=== PATIENT | female | born 1950 ===

== ENCOUNTER 2020-05-28 11:09 | Outpatient (REF) | payer MEDICARE, SELFPAY ==
[2020-05-28 12:00] LABS: MANUAL DIFF FLAG NO
[2020-05-28 12:11] LABS: Basophils Absolute Auto 0.1 X10*3/uL (0.0-0.2); Basophils Percent Auto 1.2 % (0-2); Eosinophils Absolute Auto 0.2 X10*3/uL (0.0-0.4); Eosinophils Percent Auto 4.1 % (0-4); Hematocrit 39.6 % (37-47); Hemoglobin 13.2 g/dl (12.0-16.0); Imm Gran Abs Auto 0.01 X10*3/uL (0.00-0.03); Imm Gran Pct Auto 0.2 % (0.0-0.4); Lymphocytes Absolute Auto 2.1 X10*3/uL (1.2-4.9); Lymphocytes Percent Auto 42.9 % (20-40); Mean Corpuscular HGB Conc 33.3 g/dl (31.0-35.0); Mean Corpuscular Hemoglobin 29.9 pg (27.0-33.0); Mean Corpuscular Volume 89.6 fL (80-98); Mean Platelet Volume 12.4 fL (9.4-12.3); Monocytes Absolute Auto 0.3 X10*3/uL (0.1-1.2); Monocytes Percent Auto 5.9 % (2-11); Neutrophils Absolute Auto 2.2 X10*3/uL (2.0-8.3); Neutrophils Percent Auto 45.7 % (45-73); Platelet Count 206 X10*3/uL (160-400); Red Blood Count 4.42 X10*6/uL (4.20-5.50); Red Cell Distribution Width 13.1 % (11.0-16.0); White Blood Count 4.9 X10*3/uL (4.8-10.8)
[2020-05-28 12:41] LABS: Alanine Aminotransferase 34 U/L (0-31); Albumin Level 4.3 g/dL (3.5-5.0); Alkaline Phosphatase 54 U/L (39-117); Anion Gap 9 (12-20); Aspartate Amino Transferase 26 U/L (5-31); Bilirubin Total 0.7 mg/dL (0.0-1.0); Blood Urea Nitrogen 16 mg/dL (9-16); Calcium 9.7 mg/dL (8.4-10.2); Carbon Dioxide 31 mmol/L (22-29); Chloride 103 mmol/L (96-108); Cholesterol 223 mg/dL; Estimated Glomerular Filt Rate 59; Glucose Fasting 85 mg/dL (60-99); HDL Cholesterol 55 mg/dL; LDL Cholesterol Calculated 144 mg/dl; Potassium 3.8 mmol/l (3.3-5.1); Sodium 139 mmol/L (135-145); Triglycerides 122 mg/dL
[2020-05-28 12:47] LABS: TSH reflex Free T4 1.04 mIU/mL (0.32-4.0)
[2020-05-28 12:48] LABS: Glucose Urine UA NEG (NEG); Leukocyte Esterase Urine NEG (NEG); Nitrite Urine NEG (NEG); PH 5.5 (5.0-8.0); Specific Gravity - Urine >= 1.030 (1.005-1.025); Urine Blood TRACE (NEG); Urine Ketones NEG (NEG); Urine Protein NEG (NEG-TRACE)
[2020-05-28 12:53] LABS: Appearance Urine CLEAR; Color Urine YELLOW
[2020-05-28 13:11] LABS: Mucus Urine 1+ /LPF; RBC Urine 0-2 /HPF (0); Squamous Epithelial Cell Urine 1+ /LPF; WBC Urine 0 /HPF (0-4)
== END 2020-05-28 11:10 | disposition home or self-care (01) ==
LOC: HO.LAB 11:09
PROVIDERS: PCP Internal Medicine; Visit Provider Internal Medicine
DX: I10 Essential (primary) hypertension (principal); E78.5 Hyperlipidemia, unspecified; R74.8 Abnormal levels of other serum enzymes; J30.9 Allergic rhinitis, unspecified; E66.3 Overweight
CPT/HCPCS: 36415; 80053; 80061; 81001; 84443; 85025

== ENCOUNTER 2020-07-18 | Outpatient (REF) | payer MEDICARE, SELFPAY ==
--- NOTE | 2020-07-18 09:51 | EMG_ITS ---
Bilateral median and ulnar motor and sensory studies were performed. Bilateral radial sensory studies were performed and paraspinal muscles were tested. IMPRESSION: 1. Ffft-rp-qsdxfemq bilateral median neuropathy across carpal tunnel. 2. Mild bilateral ulnar neuropathy across cubital tunnel. MD DARIN Licona/KATIE / [id number]
== END 2020-07-18 00:01 ==
LOC: HO.NEURO
PROVIDERS: PCP Internal Medicine; Visit Provider Internal Medicine
DX: M79.641 Pain in right hand (principal); M79.642 Pain in left hand; R20.2 Paresthesia of skin
CPT/HCPCS: 95860; 95886

== ENCOUNTER 2020-08-22 14:13 | Outpatient (REF) | payer MEDICARE, SELFPAY ==
--- NOTE | 2020-08-22 14:18 | MM_ITS ---
EXAMINATION: MM SCREENING DIGITAL BREAST TOMOSYNTHESIS, BILATERAL CLINICAL INFORMATION: Screening. Asymptomatic. The lifetime risk of breast cancer based on the Tyrer-Cuzick Model is 6%. COMPARISON: Mammography: 08/17/2019, 07/26/2018, 08/03/2017, 08/06/2016 TECHNIQUE: Digital breast tomosynthesis is performed in both the craniocaudal and mediolateral oblique views along with computer-aided detection (CAD). Synthesized 2D images are generated from the tomosynthesis. FINDINGS: There are scattered areas of fibroglandular density (ACR BI-RADS breast composition Category b). There are no significant masses, abnormal calcifications, or other abnormalities. Parenchymal pattern is similar to prior exams. No developing density. There are scattered bilateral calcifications again seen similar in number and distribution to prior studies. MM/MM tomosynthesis screening BI IMPRESSION: No significant changes from prior exams. ASSESSMENT: BI-RADS 2: Benign RECOMMENDATION: Routine annual mammography screening. This patient's information was entered into a reminder system with a target due date for their next mammogram.
== END 2020-08-22 14:14 | disposition home or self-care (01) ==
LOC: HO.MAMMO 14:13
PROVIDERS: Visit Provider Internal Medicine
DX: Z12.31 Encounter for screening mammogram for malignant neoplasm of breast (principal)
CPT/HCPCS: 77063; 77067

== ENCOUNTER 2020-09-30 11:22 | Outpatient (REF) | payer MEDICARE, SELFPAY ==
[2020-09-30 12:17] LABS: MANUAL DIFF FLAG NO
[2020-09-30 12:19] LABS: Basophils Percent Auto 0.6 % (0-2); Eosinophils Absolute Auto 0.1 X10*3/uL (0.0-0.4); Eosinophils Percent Auto 1.6 % (0-4); Hematocrit 39.5 % (37-47); Hemoglobin 13.3 g/dl (12.0-16.0); Imm Gran Abs Auto 0.01 X10*3/uL (0.00-0.03); Imm Gran Pct Auto 0.2 % (0.0-0.4); Lymphocytes Percent Auto 41.1 % (20-40); Mean Corpuscular HGB Conc 33.7 g/dl (31.0-35.0); Mean Corpuscular Hemoglobin 29.9 pg (27.0-33.0); Mean Corpuscular Volume 88.8 fL (80-98); Mean Platelet Volume 12.3 fL (9.4-12.3); Monocytes Absolute Auto 0.2 X10*3/uL (0.1-1.2); Monocytes Percent Auto 4.9 % (2-11); Neutrophils Absolute Auto 2.5 X10*3/uL (2.0-8.3); Neutrophils Percent Auto 51.6 % (45-73); Platelet Count 194 X10*3/uL (160-400); Red Blood Count 4.45 X10*6/uL (4.20-5.50); Red Cell Distribution Width 13.3 % (11.0-16.0); White Blood Count 4.9 X10*3/uL (4.8-10.8)
[2020-09-30 12:48] LABS: Alanine Aminotransferase 29 U/L (0-31); Albumin Level 4.2 g/dL (3.5-5.0); Alkaline Phosphatase 55 U/L (39-117); Anion Gap 11 (12-20); Aspartate Amino Transferase 22 U/L (5-31); Blood Urea Nitrogen 19 mg/dL (9-16); Calcium 9.8 mg/dL (8.4-10.2); Carbon Dioxide 32 mmol/L (22-29); Chloride 102 mmol/L (96-108); Cholesterol 252 mg/dL; Estimated Glomerular Filt Rate 58; Glucose Fasting 75 mg/dL (60-99); HDL Cholesterol 59 mg/dL; LDL Cholesterol Calculated 173 mg/dl; Potassium 3.7 mmol/L (3.3-5.1); Sodium 141 mmol/L (135-145); Triglycerides 100 mg/dL
[2020-09-30 13:12] LABS: TSH reflex Free T4 0.95 uIU/mL (0.32-4.0)
[2020-09-30 13:21] LABS: Folate 13.2 ng/mL (> or = 4.0); Vitamin B12 659 pg/mL (200-900)
== END 2020-09-30 11:23 | disposition home or self-care (01) ==
LOC: HO.LAB 11:22
PROVIDERS: PCP Internal Medicine; Visit Provider Internal Medicine
DX: I10 Essential (primary) hypertension (principal); R20.2 Paresthesia of skin; E78.00 Pure hypercholesterolemia, unspecified; E66.3 Overweight
CPT/HCPCS: 36415; 80053; 80061; 82607; 82746; 84443; 85025

== ENCOUNTER 2020-11-05 12:27 | Outpatient (REF) | payer MEDICARE, SELFPAY ==
[2020-11-05 13:56] LABS: MANUAL DIFF FLAG NO
[2020-11-05 14:08] LABS: Basophils Percent Auto 0.7 % (0-2); Eosinophils Absolute Auto 0.1 X10*3/uL (0.0-0.4); Eosinophils Percent Auto 2.6 % (0-4); Hematocrit 38.8 % (37-47); Lymphocytes Absolute Auto 2.3 X10*3/uL (1.2-4.9); Lymphocytes Percent Auto 42.1 % (20-40); Mean Corpuscular HGB Conc 33.5 g/dl (31.0-35.0); Mean Corpuscular Volume 89.4 fL (80-98); Mean Platelet Volume 12.7 fL (9.4-12.3); Monocytes Absolute Auto 0.3 X10*3/uL (0.1-1.2); Monocytes Percent Auto 5.9 % (2-11); Neutrophils Absolute Auto 2.7 X10*3/uL (2.0-8.3); Neutrophils Percent Auto 48.7 % (45-73); Platelet Count 197 X10*3/uL (160-400); Red Blood Count 4.34 X10*6/uL (4.20-5.50); Red Cell Distribution Width 13.1 % (11.0-16.0); White Blood Count 5.4 X10*3/uL (4.8-10.8)
[2020-11-05 14:54] LABS: Alanine Aminotransferase 24 U/L (0-31); Albumin Level 4.3 g/dL (3.5-5.0); Alkaline Phosphatase 56 U/L (39-117); Anion Gap 14 (12-20); Aspartate Amino Transferase 22 U/L (5-31); Bilirubin Total 0.8 mg/dL (0.0-1.0); Blood Urea Nitrogen 17 mg/dL (9-16); Calcium 9.7 mg/dL (8.4-10.2); Carbon Dioxide 30 mmol/L (22-29); Chloride 100 mmol/L (96-108); Estimated Glomerular Filt Rate > 60; Glucose Random 85 mg/dL (60-115); Lipase 15 U/L (8-78); Potassium 3.6 mmol/L (3.3-5.1); Sodium 140 mmol/L (135-145); Total Protein 8.1 g/dL (6.5-8.0)
[2020-11-05 14:58] LABS: Amylase 101 U/L (28-100)
== END 2020-11-05 12:28 | disposition home or self-care (01) ==
LOC: HO.HMGCLDS 12:27
PROVIDERS: PCP Internal Medicine; Visit Provider Nurse Practitioner Family
DX: R10.9 Unspecified abdominal pain (principal)
CPT/HCPCS: 36415; 80053; 82150; 83690; 85025

== ENCOUNTER 2020-11-30 10:59 | Emergency (ER) | payer MEDICARE, SELFPAY ==
--- NOTE | ~2020-11-30 | XR_ITS ---
EXAMINATION: XR CHEST CLINICAL INFORMATION: Upper abdominal pain. COMPARISON: Chest radiograph dated 08/14/2009. TECHNIQUE: 2 views of the chest were obtained. FINDINGS: The lungs are clear. The cardiomediastinal silhouette is normal in size. There is no pleural effusion or pneumothorax. No acute osseous abnormality. XR/XR chest 2V IMPRESSION: No acute cardiopulmonary findings.
--- NOTE | ~2020-11-30 | US_ITS ---
EXAMINATION: US ABDOMEN COMPLETE CLINICAL INFORMATION: Upper abdominal pain. COMPARISON: CT abdomen/pelvis dated 07/19/2018. TECHNIQUE: Real-time imaging of the abdominal viscera. FINDINGS: PANCREAS: The visualized pancreatic head and body are unremarkable. The tail is obscured by bowel gas. ABDOMINAL AORTA: The proximal, mid, and distal segments are normal in caliber. INFERIOR VENA CAVA: Visualized portions are normal. LIVER: Redemonstration of right hepatic cysts measuring 1.3 and 1.8 cm, similar when compared to the CT from 2018. No new hepatic parenchymal lesion. The liver is normal in size. The liver contour is normal. Parenchymal echogenicity is normal. There is no intrahepatic biliary duct dilatation seen. GALLBLADDER: Normal. The gallbladder is physiologically distended without evidence of stones, sludge, polyps, wall thickening or pericholecystic fluid. COMMON BILE DUCT: Normal in caliber measuring 0.4 cm in diameter. RIGHT KIDNEY: Multiple right-sided renal cysts, the largest of which measure up to 1.3 cm. There may be a small peripheral calcification versus focal artifact. No hydronephrosis or nephrolithiasis. The kidney measures 9.5 cm in maximum dimension. LEFT KIDNEY: Normal. No hydronephrosis. No renal calculi or focal parenchymal lesions. The kidney measures 10.2 cm in maximum dimension. SPLEEN: Normal. The spleen measures 8.7 cm in maximum dimension. FREE FLUID: None. US/US abdomen complete IMPRESSION: 1. No cholelithiasis, gallbladder wall thickening, or pericholecystic free fluid to suggest acute cholecystitis. 2. Stable hepatic cysts. No new hepatic parenchymal lesion or biliary ductal dilatation. 3. Redemonstration of multiple right-sided renal cysts. No routine followup imaging recommended. No hydronephrosis or nephrolithiasis.
--- NOTE | ~2020-11-30 | CT_ITS ---
EXAMINATION: CT ABDOMEN AND PELVIS WITH CONTRAST CLINICAL INFORMATION: Abdominal pain radiating to the mid back COMPARISON: 07/19/2018 TECHNIQUE: Multidetector volumetric images were obtained from the superior aspect of the liver through the pubic symphysis following administration 85 mL of Omnipaque 350 intravenous contrast. Sagittal and coronal reformatted images were obtained on the technologist's workstation. Oral contrast: No This CT examination was performed using dose optimization techniques as appropriate, variously including the following: *Automated exposure control *Adjustment of mA and/or kV according to patient size (this includes techniques or standardized protocols for targeted exams where dose is matched to indication/reason for exam; i.e. extremities or head) *Use of iterative reconstruction technique DLP: 560 mGy-cm FINDINGS: LUNG BASES: The visualized lung bases are unremarkable. LIVER, GALLBLADDER, AND BILIARY TREE: There are well-circumscribed water density simple cysts in the liver, the largest 1.8 cm in segment 7. No imaging follow-up recommended. No suspicious or concerning liver lesions seen. The gallbladder is unremarkable with no evidence of radiopaque gallstones, gallbladder wall thickening, or obvious pericholecystic inflammatory changes. PANCREAS: The pancreatic duct is tortuous and prominent, up to 3 mm in diameter through the head of the pancreas. It is increased in conspicuity from the prior CT scan. There is a 3 mm cyst inferiorly in the pancreatic head image 31/81. No solid pancreatic mass or peripancreatic inflammatory changes. SPLEEN: Unremarkable. ADRENAL GLANDS: Unremarkable. KIDNEYS AND URETERS: Symmetric bilateral renal enhancement. There are well-circumscribed water density bilateral renal simple cysts; no imaging follow-up recommended. No solid or suspicious renal mass. No hydronephrosis or calculi. BLADDER: Unremarkable. GASTROINTESTINAL TRACT: Stomach and small bowel are nondilated. Normal appendix. There is colonic diverticulosis but no evidence of colitis or diverticulitis. ABDOMINAL WALL: Tiny fat-containing umbilical hernia. LYMPH NODES: Normal. VASCULAR: Unremarkable. PELVIC VISCERA: Normal CT appearance of the ovaries. There are several ill-defined low density lesions in the body and fundus of the uterus, likely leiomyomata. OSSEOUS STRUCTURES: Multilevel degenerative changes of the lumbar spine degenerative disc disease greatest at L5-S1. No acute or suspicious osseous abnormality. CT/CT abdomen pelvis w con IMPRESSION: No acute CT findings to explain abdominal pain. There is an abnormal appearance to the pancreatic duct, which is tortuous and prominent. There is a 3 mm cyst inferiorly in the pancreatic head. Follow-up recommendation for a pancreatic cyst this size in a patient 65-79 years presentation is follow-up imaging in 2 years, preferably with MRI.
[2020-11-30 11:13] VITALS: BP 159/70; PULSE 48; RESP 16; TEMP 36.7; O2SAT 99; BMI 28.7
[2020-11-30 12:02] LABS: MANUAL DIFF FLAG NO
[2020-11-30 12:03] LABS: Basophils Percent Auto 0.8 % (0-2); Eosinophils Absolute Auto 0.1 X10*3/uL (0.0-0.4); Eosinophils Percent Auto 2.5 % (0-4); Hematocrit 39.1 % (37-47); Hemoglobin 13.2 g/dl (12.0-16.0); Imm Gran Abs Auto 0.01 X10*3/uL (0.00-0.03); Imm Gran Pct Auto 0.2 % (0.0-0.4); Lymphocytes Absolute Auto 1.9 X10*3/uL (1.2-4.9); Lymphocytes Percent Auto 39.2 % (20-40); Mean Corpuscular HGB Conc 33.8 g/dl (31.0-35.0); Mean Corpuscular Hemoglobin 29.9 pg (27.0-33.0); Mean Corpuscular Volume 88.7 fL (80-98); Mean Platelet Volume 11.7 fL (9.4-12.3); Monocytes Absolute Auto 0.3 X10*3/uL (0.1-1.2); Monocytes Percent Auto 5.8 % (2-11); Neutrophils Absolute Auto 2.5 X10*3/uL (2.0-8.3); Neutrophils Percent Auto 51.5 % (45-73); Platelet Count 186 X10*3/uL (160-400); Red Blood Count 4.41 X10*6/uL (4.20-5.50); Red Cell Distribution Width 13.1 % (11.0-16.0); White Blood Count 4.8 X10*3/uL (4.8-10.8)
[2020-11-30 12:17] LABS: Glucose Urine UA NEG (NEG); Leukocyte Esterase Urine NEG (NEG); Nitrite Urine NEG (NEG); PH 5.5 (5.0-8.0); Specific Gravity - Urine >= 1.030 (1.005-1.025); Urine Blood TRACE (NEG); Urine Ketones NEG (NEG); Urine Protein NEG (NEG-TRACE)
[2020-11-30 12:23] LABS: Appearance Urine CLEAR; Color Urine YELLOW
[2020-11-30 12:32] LABS: Anion Gap 12 (12-20); Blood Urea Nitrogen 15 mg/dL (9-16); Calcium 9.8 mg/dL (8.4-10.2); Carbon Dioxide 30 mmol/L (22-29); Chloride 103 mmol/L (96-108); Creatinine Clr Calc Pharmacy 58.1; Estimated Glomerular Filt Rate > 60; Glucose Random 85 mg/dL (60-115); Potassium 3.8 mmol/L (3.3-5.1); Sodium 141 mmol/L (135-145)
[2020-11-30 12:47] LABS: RBC Urine 0 /HPF (0); Squamous Epithelial Cell Urine 1+ /LPF
--- NOTE | 2020-11-30 13:43 | ECG_ITS ---
Test Reason : ABDOMINAL PAIN Blood Pressure : / mmHG Vent. Rate : 044 BPM Atrial Rate : 044 BPM P-R Int : 184 ms QRS Dur : 086 ms QT Int : 454 ms P-R-T Axes : 043 028 036 degrees QTc Int : 388 ms Marked sinus bradycardia Abnormal ECG When compared with ECG of 22-AUG-2016 08:47, No significant change was found Referred By: Mariely Garcia Electronically Signed By:Flo Mercado
--- NOTE | 2020-11-30 14:15 | ED.ABDPAIN ---
HPI - Abdominal Pain General Chief Complaint: Abdominal Pain Stated Complaint: ABD AND BACK PAIN Time Seen by Provider: 11/30/20 11:57 Source: patient Mode of arrival: ambulatory Limitations: no limitations History of Present Illness HPI narrative: 70-year-old female with a past medical history of hypertension, migraine headaches and GERD presenting to the ED with complaints of intermittent abdominal pain in the epigastric area since June worse within the past 4 days where it is now radiating to her mid back mainly right-sided worse after she eats. Denies any fevers, chills, nausea/vomiting, changes in vision, chest pain, shortness of breath, dyspnea on exertion, orthopnea, palpitations, diarrhea, hematuria, diarrhea, constipation, black or bloody stools, hematuria, dysuria or any other symptoms complaints or concerns at this time. Reports she is not on any blood thinners. Denies recent travel or sick contacts. MD elicited complaint: abdominal pain Onset (ago): day(s) (Intermittently since June worse in the past for 4 days ) Pain Consistency: intermittent Location: epigastric Severity: moderate Quality: aching Radiation: back Exacerbating factors: eating Relieving factors: nothing Associated symptoms: denies other symptoms Related Data Previous Rx's Medication Instructions Recorded syhbimcctt-mhunmgl-[id number] 50 2 cap PO Q4-6H PRN 30 Days #180 cap 07/25/20 mg-325 mg-40 mg capsule atenolol 50 mg-chlorthalidone 25 0.5 tab PO DAILY #45 tab 08/19/20 mg tablet polyethylene glycol 3350 17 17 g PO BID #238 g 11/05/20 gram/dose oral powder Allergies Allergy/AdvReac Type Severity Reaction Status Date / Time No Known Allergies Allergy Verified 11/30/20 10:07 [No Known Allergies*] Review of Systems Review of Systems Constitutional : No Fever, No Chills, No Night Sweats, No Fatigue, No Malaise Cardiovascular : No Chest Pain, No SOB Respiratory : No Cough, No Sputum, No Wheezing, No Dyspnea Gastrointestinal : +abdominal pain, No Nausea, No Vomiting, No Diarrhea, No Hematochezia, No Melena Genitourinary : No irregular bleeding, No Dysuria, No Urinary Frequency, No Hematuria,No Urinary Incontinence, No Urgency, No Flank Pain Musculoskeletal : No joint pain, No Myalgias, No Joint Swelling Skin : No Skin Lesions, No rash Neuro : No Weakness, No Numbness, No Paresthesias, No Loss of Consciousness, No Dizziness, No Headache Heme/Lymph: No Lymphadenopathy Endocrine : No Temperature Intolerance Yes all other systems are reviewed and are negative Physical Exam Vital Signs: Vital Signs: Last Vital Signs Temp 98.1 F 11/30/20 11:13 Pulse 47 L 11/30/20 15:36 Resp 16 11/30/20 15:36 BP 155/75 H 11/30/20 15:36 Pulse Ox 96 11/30/20 15:36 Body Mass Index 28.7 vital signs have been reviewed as normal and appeared to be correct. Blood pressure hypertensive at 159/70. Heart rate bradycardic at 48. Respiration rate normal. Temperature normal. Oxygen saturation normal. Appearance: Alert. Oriented X3. No acute distress. Head: Normal external exam. Normocephalic. Eyes: PERRLA. EOMI. Conjunctiva and sclera normal. Eyelids normal. ENT: Pharynx normal. Uvula midline. Moist mucous membranes. No trismus noted. No drooling noted. No muffled voice noted. Neck: Normal inspection. Neck supple. FROM. No adenopathy. No meningeal signs. CVS: Normal heart rate and rhythm. Heart sound normal. No murmurs noted. Pulses normal throughout. Respiratory: No respiratory distress. Painless inspiration. Breath sounds normal. No wheezes/rales/rhonchi noted. Chest nontender. No accessory muscle usage noted or decreased air movement noted. Abdomen: Soft and moderate tenderness to the epigastric/upper abdomen with guarding. Positive Calderon sign. Nondistended. No rigidity. Bowel sounds normal in all 4 quadrants. No distention noted. No organomegaly noted. No visible injury noted. No rebound tenderness. Negative Rovsing sign. Negative obturator's sign. Negative psoas sign. Back: No CVA tenderness. Full range of motion noted. Skin: Skin warm and dry. Normal skin color. Normal skin turgor. No rashes/lesions/lacerations noted. Extremities: Extremities exhibit normal range of motion. Extremities nontender. Neuro: Oriented X 3. No motor deficit. No sensory deficit. Reflexes normal. Normal steady gait. Course Course Course Narrative: 16pm - total bilirubin 1.1 - otherwise all other labs are within normal limits - troponin within normal limits. - abdominal ultrasound revealed chronic changes of the liver/kidneys with cysts otherwise no acute processes noted - UA within normal limits no evidence of UTI. - EKG was sinus bradycardia similar compared to prior EKG. - therefore will obtain a CT scan of abdomen and pelvis with IV contrast to evaluate for any other acute processes. MDM - Abdominal Pain MDM Narrative Medical decision making narrative: 13:45 - 70-year-old female presenting to the ED with complaints of intermittent abdominal pain in the epigastric abdominal area worse after eating since June although worse within the past 4 days now radiating to her mid back. - on exam patient is alert and oriented x3. Not in any acute distress. No focal neuro deficits are noted. Mildly hypertensive at 159/70. Bradycardic at 48 otherwise all other vitals are within normal limits. Lungs clear to auscultation. CV RRR. Abdomen is soft although patient has moderate tenderness to the epigastric/upper abdomen with a positive Calderon sign. No lower extremity edema or calf tenderness noted. - Concern for cholecystitis vs pancreatitis Plan: Labs, EKG, ultrasound of abdomen. Provide a L of IV fluids with 5 mg of oxycodone and re-evaluate. Medical Records Attestation: I reviewed the patient's medical records. Lab Data Attestation: I reviewed the patient's lab results. Result diagrams: 11/30/20 11:58 11/30/20 11:58 Labs: Lab Results 11/30/20 11/30/20 11/30/20 Range/Units 11:58 11:58 11:58 WBC 4.8 (4.8-10.8) X10*3/uL RBC 4.41 (4.20-5.50) X10*6/uL Hgb 13.2 (12.0-16.0) g/dl Hct 39.1 (37-47) % MCV 88.7 (80-98) fL MCH 29.9 (27.0-33.0) pg MCHC 33.8 (31.0-35.0) g/dl RDW 13.1 (11.0-16.0) % Plt Count 186 (160-400) X10*3/uL MPV 11.7 (9.4-12.3) fL Immature Gran % (Auto) 0.2 (0.0-0.4) % Neut % (Auto) 51.5 (45-73) % Lymph % (Auto) 39.2 (20-40) % [place] % (Auto) 5.8 (2-11) % Eos % (Auto) 2.5 (0-4) % Baso % (Auto) 0.8 (0-2) % Lymph # (Auto) 1.9 (1.2-4.9) X10*3/uL [place] # (Auto) 0.3 (0.1-1.2) X10*3/uL Eos # (Auto) 0.1 (0.0-0.4) X10*3/uL Baso # (Auto) 0.0 (0.0-0.2) X10*3/uL Abs Immat Gran (auto) 0.01 (0.00-0.03) X10*3/uL Absolute Neuts (auto) 2.5 (2.0-8.3) X10*3/uL Absolute Nucleated RBC 0.000 (0.0-0.012) X10*3/uL Nucleated RBC % (auto) 0.0 (0.0-0.2) /100WBC Hold Blue Top SEE NOTE Sodium 141 (135-145) mmol/L Potassium 3.8 (3.3-5.1) mmol/L Chloride 103 (96-108) mmol/L Carbon Dioxide 30 H (22-29) mmol/L Anion Gap 12 (12-20) BUN 15 (9-16) mg/dL Creatinine 0.89 (0.5-1.4) mg/dL Estim Creat Clear Calc 58.1 Estimated GFR > 60 Random Glucose 85 (60-115) mg/dL Calcium 9.8 (8.4-10.2) mg/dL Magnesium 1.9 (1.6-2.6) mg/dL Total Bilirubin 1.1 H (0.0-1.0) mg/dL Direct Bilirubin 0.3 (0.0-0.5) mg/dL AST 21 (5-31) U/L ALT 28 (0-31) U/L Alkaline Phosphatase 58 (39-117) U/L Troponin I High Sens (<3.5-17.0) ng/L Total Protein 8.0 (6.5-8.0) g/dL Albumin 4.1 (3.5-5.0) g/dL Lipase 17 (8-78) U/L Urine Color Urine Appearance Urine pH (5.0-8.0) Ur Specific [place] (1.005-1.025) Urine Protein (NEG-TRACE) MG/DL Urine Glucose (UA) (NEG) MG/DL Urine Ketones (NEG) MG/DL Urine Blood (NEG) Urine Nitrite (NEG) Ur Leukocyte Esterase (NEG) Urine RBC (0) /HPF Urine WBC (0-4) /HPF Ur Squamous Epith Cells /LPF Urine Bacteria /LPF Coronavirus (PCR) (Negative) Influenza Type A (PCR) (Negative) Influenza Type B (PCR) (Negative) RSV RNA Qual (PCR) (Negative) 11/30/20 11/30/20 11/30/20 Range/Units 11:58 12:04 15:26 WBC (4.8-10.8) X10*3/uL RBC (4.20-5.50) X10*6/uL Hgb (12.0-16.0) g/dl Hct (37-47) % MCV (80-98) fL MCH (27.0-33.0) pg MCHC (31.0-35.0) g/dl RDW (11.0-16.0) % Plt Count (160-400) X10*3/uL MPV (9.4-12.3) fL Immature Gran % (Auto) (0.0-0.4) % Neut % (Auto) (45-73) % Lymph % (Auto) (20-40) % [place] % (Auto) (2-11) % Eos % (Auto) (0-4) % Baso % (Auto) (0-2) % Lymph # (Auto) (1.2-4.9) X10*3/uL [place] # (Auto) (0.1-1.2) X10*3/uL Eos # (Auto) (0.0-0.4) X10*3/uL Baso # (Auto) (0.0-0.2) X10*3/uL Abs Immat Gran (auto) (0.00-0.03) X10*3/uL Absolute Neuts (auto) (2.0-8.3) X10*3/uL Absolute Nucleated RBC (0.0-0.012) X10*3/uL Nucleated RBC % (auto) (0.0-0.2) /100WBC Hold Blue Top Sodium (135-145) mmol/L Potassium (3.3-5.1) mmol/L Chloride (96-108) mmol/L Carbon Dioxide (22-29) mmol/L Anion Gap (12-20) BUN (9-16) mg/dL Creatinine (0.5-1.4) mg/dL Estim Creat Clear Calc Estimated GFR Random Glucose (60-115) mg/dL Calcium (8.4-10.2) mg/dL Magnesium (1.6-2.6) mg/dL Total Bilirubin (0.0-1.0) mg/dL Direct Bilirubin (0.0-0.5) mg/dL AST (5-31) U/L ALT (0-31) U/L Alkaline Phosphatase (39-117) U/L Troponin I High Sens < 3.5 (<3.5-17.0) ng/L Total Protein (6.5-8.0) g/dL Albumin (3.5-5.0) g/dL Lipase (8-78) U/L Urine Color YELLOW Urine Appearance CLEAR Urine pH 5.5 (5.0-8.0) Ur Specific [place] >= 1.030 H (1.005-1.025) Urine Protein NEG (NEG-TRACE) MG/DL Urine Glucose (UA) NEG (NEG) MG/DL Urine Ketones NEG (NEG) MG/DL Urine Blood TRACE (NEG) Urine Nitrite NEG (NEG) Ur Leukocyte Esterase NEG (NEG) Urine RBC 0 (0) /HPF Urine WBC 1-4 (0-4) /HPF Ur Squamous Epith Cells 1+ /LPF Urine Bacteria NONE /LPF Coronavirus (PCR) NEGATIVE (Negative) Influenza Type A (PCR) NEGATIVE (Negative) Influenza Type B (PCR) NEGATIVE (Negative) RSV RNA Qual (PCR) NEGATIVE (Negative) Imaging Data Abdominal ultrasound: Attestation: I personally reviewed and interpreted this imaging study as follows: Radiologist's impression: FINDINGS: PANCREAS: The visualized pancreatic head and body are unremarkable. The tail is obscured by bowel gas. ABDOMINAL AORTA: The proximal, mid, and distal segments are normal in caliber. INFERIOR VENA CAVA: Visualized portions are normal. LIVER: Redemonstration of right hepatic cysts measuring 1.3 and 1.8 cm, similar when compared to the CT from 2018. No new hepatic parenchymal lesion. The liver is normal in size. The liver contour is normal. Parenchymal echogenicity is normal. There is no intrahepatic biliary duct dilatation seen. GALLBLADDER: Normal. The gallbladder is physiologically distended without evidence of stones, sludge, polyps, wall thickening or pericholecystic fluid. COMMON BILE DUCT: Normal in caliber measuring 0.4 cm in diameter. RIGHT KIDNEY: Multiple right-sided renal cysts, the largest of which measure up to 1.3 cm. There may be a small peripheral calcification versus focal artifact. No hydronephrosis or nephrolithiasis. The kidney measures 9.5 cm in maximum dimension. LEFT KIDNEY: Normal. No hydronephrosis. No renal calculi or focal parenchymal lesions. The kidney measures 10.2 cm in maximum dimension. SPLEEN: Normal. The spleen measures 8.7 cm in maximum dimension. FREE FLUID: None. US/US abdomen complete IMPRESSION: 1. No cholelithiasis, gallbladder wall thickening, or pericholecystic free fluid to suggest acute cholecystitis. 2. Stable hepatic cysts. No new hepatic parenchymal lesion or biliary ductal dilatation. 3. Redemonstration of multiple right-sided renal cysts. No routine followup imaging recommended. No hydronephrosis or nephrolithiasis. ECG Data Attestation: I personally reviewed and interpreted this ECG as follows: ECG interpretation date: 11/30/20 ECG interpretation time: 15:15 Interpretation: Marked sinus bradycardia with ventricular rate of 44 with a normal ME interval normal QRS duration normal QT/QTC interval. No acute ischemic changes are noted. Similar compared to prior EKG On 08/22/2016 it appears that patient always has bradycardia. Her ventricular rate at that time was 48 as well. Critical Care Time Critical Care Time Critical Care Time: Yes Total Critical Care Time: 60 Attestation: I personally attest to this time spent taking care of the patient Discharge Plan Discharge Clinical Impression: Renal cyst, Hepatic cyst, Abdominal pain Instructions: Kidney Cyst (ED) Prescriptions: No Action xpqqfezaka-vkexsiq-qdyqdhsr 50-325-40 mg capsule 2 cap PO Q4-6H PRN (Reason: headache) 30 Days Qty: 180 RF: 3 atenolol-chlorthalidone 50-25 mg tablet 0.5 tab PO DAILY Qty: 45 RF: 0 polyethylene glycol 3350 17 gram/dose powder 17 g PO BID Qty: 238 RF: 0 Referrals: Ulises Cedeno MD [Physician] - 2 days (You should follow-up with the urologist regarding your kidney cyst) Print Language: [place] [facility] Past Medical History Attestation statement: The following information was validated with the patient. Medical History Allergic rhinitis Benign essential hypertension Migraine Overweight (BMI 25.0-29.9) Pain in both hands Paresthesia of both hands Pure hypercholesterolemia Surgical History History of ankle surgery (~2002) History of lumbosacral spine surgery History of oophorectomy History of removal of retained hardware (~01/2017) Family History Family History Father Diabetes Hypertension Mother Hypertension Social History Social History Alcohol intake: current Alcohol intake frequency: holidays/special occasions only Alcohol type: wine Smoking Status: Never smoker Advance Directives: No Advance Directives Information Provided: Yes
[2020-11-30] MEDS: oxyCODONE HCl Immed Release 5 MG TABLET PO (15:22)
[2020-11-30] MEDS: 0.9 % Sodium Chloride 1,000 ML 999 ML IVCONT (15:35)
[2020-11-30 15:36] VITALS: BP 155/75; PULSE 47; RESP 16; O2SAT 96
[2020-11-30 15:55] LABS: Alanine Aminotransferase 28 U/L (0-31); Albumin Level 4.1 g/dL (3.5-5.0); Alkaline Phosphatase 58 U/L (39-117); Aspartate Amino Transferase 21 U/L (5-31); Bilirubin Direct 0.3 mg/dL (0.0-0.5); Bilirubin Total 1.1 mg/dL (0.0-1.0); Lipase 17 U/L (8-78); Magnesium 1.9 mg/dL (1.6-2.6)
[2020-11-30 16:13] LABS: Troponin-I High Sensitivity < 3.5 ng/L (<3.5-17.0)
[2020-11-30 16:17] LABS: Influenza A PCR NEGATIVE (Negative); Influenza B PCR NEGATIVE (Negative); Resp Syncy Virus RNA Qual PCR NEGATIVE (Negative); SARS COV2 PCR INHOUSE NEGATIVE (Negative)
[2020-11-30] MEDS: iohexoL 350 MG/ML 100 ML INFUS..BTL IV (16:34)
[2020-11-30 17:32] LABS: INTERNATIONAL NORM RATIO 1.1 (0.9-1.1); Prothrombin Time 12.6 SEC (10.8-13.0)
[2020-11-30 17:50] VITALS: BP 148/55; PULSE 52; RESP 14; TEMP 36.4; O2SAT 98
[2020-12-03 12:32] LABS: Carbohydrate Antigen 19-9 7 U/mL (<34)
== END 2020-11-30 19:25 | disposition home or self-care (01) ==
PROVIDERS: Nurse Practitioner Family; Physician Assistant Medical; Emergency Provider Emergency Medicine; PCP Internal Medicine
DX: N28.1 Cyst of kidney, acquired (principal); R10.13 Epigastric pain; M54.5 Low back pain; Z20.822 Contact with and (suspected) exposure to COVID-19; Z79.899 Other long term (current) drug therapy
CPT/HCPCS: 0241U; 36415; 71046; 74177; 76700; 80048; 80076; 81001; 82378; 83690; 83735; 84484; 85025; 85610; 86301; 93005; 96360; 99285; 99291; Q9967

== ENCOUNTER → 2020-12-06 14:25 | Outpatient (BNVA) | payer MEDICARE, SELFPAY | PROVIDERS: PCP Internal Medicine; Visit Provider Internal Medicine Gastroenterology | DX: Z13.89 Encounter for screening for other disorder (principal) | CPT/HCPCS: 99202 ==

== ENCOUNTER 2021-04-11 11:57 | Outpatient (REF) | payer MEDICARE, SELFPAY ==
[2021-04-11 13:15] LABS: MANUAL DIFF FLAG NO
[2021-04-11 13:28] LABS: Basophils Percent Auto 0.8 % (0-2); Eosinophils Absolute Auto 0.1 X10*3/uL (0.0-0.4); Eosinophils Percent Auto 2.4 % (0-4); Hematocrit 37.8 % (37-47); Hemoglobin 12.8 g/dl (12.0-16.0); Imm Gran Abs Auto 0.01 X10*3/uL (0.00-0.03); Imm Gran Pct Auto 0.2 % (0.0-0.4); Lymphocytes Absolute Auto 2.2 X10*3/uL (1.2-4.9); Lymphocytes Percent Auto 43.9 % (20-40); Mean Corpuscular HGB Conc 33.9 g/dl (31.0-35.0); Mean Corpuscular Hemoglobin 30.1 pg (27.0-33.0); Mean Corpuscular Volume 88.9 fL (80-98); Mean Platelet Volume 12.4 fL (9.4-12.3); Monocytes Absolute Auto 0.3 X10*3/uL (0.1-1.2); Monocytes Percent Auto 6.7 % (2-11); Neutrophils Absolute Auto 2.4 X10*3/uL (2.0-8.3); Platelet Count 205 X10*3/uL (160-400); Red Blood Count 4.25 X10*6/uL (4.20-5.50); Red Cell Distribution Width 12.9 % (11.0-16.0); White Blood Count 5.1 X10*3/uL (4.8-10.8)
[2021-04-11 13:33] LABS: Alanine Aminotransferase 28 U/L (0-31); Albumin Level 4.1 g/dL (3.5-5.0); Alkaline Phosphatase 56 U/L (39-117); Anion Gap 10 (12-20); Aspartate Amino Transferase 21 U/L (5-31); Bilirubin Total 0.7 mg/dL (0.0-1.0); Blood Urea Nitrogen 15 mg/dL (9-16); Calcium 10.1 mg/dL (8.4-10.2); Carbon Dioxide 31 mmol/L (22-29); Chloride 104 mmol/L (96-108); Cholesterol 225 mg/dL; Estimated Glomerular Filt Rate 56; Glucose Fasting 84 mg/dL (60-99); HDL Cholesterol 52 mg/dL; LDL Cholesterol Calculated 151 mg/dl; Potassium 4.3 mmol/L (3.3-5.1); Sodium 141 mmol/L (135-145); Total Protein 7.9 g/dL (6.5-8.0); Triglycerides 113 mg/dL
== END 2021-04-11 11:58 | disposition home or self-care (01) ==
LOC: HO.LAB 11:57
PROVIDERS: PCP Internal Medicine; Visit Provider Internal Medicine
DX: E78.00 Pure hypercholesterolemia, unspecified (principal); I10 Essential (primary) hypertension
CPT/HCPCS: 36415; 80053; 80061; 85025

== ENCOUNTER 2021-11-14 13:09 | Outpatient (REF) | payer MEDICARE, SELFPAY ==
--- NOTE | ~2021-11-14 | MM_ITS ---
EXAMINATION: MM SCREENING DIGITAL BREAST TOMOSYNTHESIS, BILATERAL CLINICAL INFORMATION: Screening. Asymptomatic. The lifetime risk of breast cancer based on the Tyrer-Cuzick Model is 4%. COMPARISON: Mammography: 08/22/2020, 08/17/2019, 07/26/2018 TECHNIQUE: Digital breast tomosynthesis is performed in both the craniocaudal and mediolateral oblique views along with computer-aided detection (CAD). Synthesized 2D images are generated from the tomosynthesis. FINDINGS: There are scattered areas of fibroglandular density (ACR BI-RADS breast composition Category b). There are no significant masses, abnormal calcifications, or other abnormalities. Bilateral scattered calcifications are similar in number and distribution to prior exams. There is no developing density. No architectural abnormality. The axilla are unremarkable. MM/MM tomosynthesis screening BI IMPRESSION: No mammographic evidence of malignancy. ASSESSMENT: BI-RADS 2: Benign RECOMMENDATION: Routine annual mammography screening. This patient's information was entered into a reminder system with a target due date for their next mammogram.
== END 2021-11-14 13:10 | disposition home or self-care (01) ==
LOC: HO.MAMMO 13:09
PROVIDERS: Visit Provider Internal Medicine
DX: Z12.31 Encounter for screening mammogram for malignant neoplasm of breast (principal)
CPT/HCPCS: 77063; 77067

== ENCOUNTER 2021-12-10 10:55 | Outpatient (REF) | payer MEDICARE, SELFPAY ==
[2021-12-10 11:22] LABS: MANUAL DIFF FLAG NO
[2021-12-10 11:49] LABS: Basophils Absolute Auto 0.1 X10*3/uL (0.0-0.2); Eosinophils Absolute Auto 0.2 X10*3/uL (0.0-0.4); Eosinophils Percent Auto 4.7 % (0-4); Hematocrit 36.4 % (37.0-47.0); Hemoglobin 12.5 g/dl (12.0-16.0); Imm Gran Abs Auto 0.01 X10*3/uL (0.00-0.03); Imm Gran Pct Auto 0.2 % (0.0-0.4); Lymphocytes Absolute Auto 2.5 X10*3/uL (1.2-4.9); Lymphocytes Percent Auto 51.2 % (20-40); Mean Corpuscular HGB Conc 34.3 g/dl (31.0-35.0); Mean Corpuscular Hemoglobin 30.3 pg (27.0-33.0); Mean Corpuscular Volume 88.3 fL (80.0-98.0); Mean Platelet Volume 12.2 fL (9.4-12.3); Monocytes Absolute Auto 0.3 X10*3/uL (0.1-1.2); Monocytes Percent Auto 6.1 % (2-11); Neutrophils Absolute Auto 1.8 x10*3/uL (2.0-8.3); Neutrophils Percent Auto 36.8 % (45-73); Platelet Count 188 X10*3/uL (160-400); Red Blood Count 4.12 X10*6/uL (4.20-5.50); Red Cell Distribution Width 13.2 % (11.0-16.0); White Blood Count 4.9 X10*3/uL (4.8-10.8)
[2021-12-10 12:55] LABS: Alanine Aminotransferase 31 U/L (0-31); Alkaline Phosphatase 49 U/L (39-117); Anion Gap 10 (12-20); Aspartate Amino Transferase 27 U/L (5-31); Blood Urea Nitrogen 14 mg/dL (9-16); Calcium 10.1 mg/dL (8.4-10.2); Carbon Dioxide 31 mmol/L (22-29); Chloride 102 mmol/L (96-108); Cholesterol 215 mg/dL; Estimated Glomerular Filt Rate > 60; Glucose Fasting 83 mg/dL (60-99); HDL Cholesterol 51 mg/dL; LDL Cholesterol Calculated 146 mg/dl; Potassium 3.6 mmol/L (3.3-5.1); Sodium 139 mmol/L (135-145); Total Protein 7.8 g/dL (6.5-8.0); Triglycerides 92 mg/dL
[2021-12-10 12:58] LABS: Vitamin D 25-OH Total 21.1 ng/mL (>30)
[2021-12-10 13:25] LABS: Appearance Urine CLEAR; Color Urine YELLOW; Glucose Urine UA NEG (NEG); Leukocyte Esterase Urine NEG (NEG); Nitrite Urine NEG (NEG); PH 5.5 (5.0-8.0); Specific Gravity - Urine >= 1.030 (1.005-1.025); Urine Blood NEG (NEG); Urine Ketones NEG (NEG); Urine Protein NEG (NEG-TRACE)
== END 2021-12-10 10:56 | disposition home or self-care (01) ==
LOC: HO.LAB 10:55
PROVIDERS: PCP Internal Medicine; Visit Provider Internal Medicine
DX: E55.9 Vitamin D deficiency, unspecified (principal); E78.00 Pure hypercholesterolemia, unspecified; I10 Essential (primary) hypertension
CPT/HCPCS: 36415; 80053; 80061; 81003; 82306; 84443; 85025

== ENCOUNTER 2022-04-21 10:20 | Outpatient (REF) | payer MEDICARE, SELFPAY ==
[2022-04-21 11:10] LABS: Appearance Urine Clear; Color Urine Yellow; Glucose Urine UA Negative (Negative); Leukocyte Esterase Urine Small (1+) (Negative); Nitrite Urine Negative (Negative); PH 5.5 (5.0-9.0); Specific Gravity - Urine >= 1.030 (1.005-1.025); Urine Blood Negative (Negative); Urine Ketones Negative (Negative); Urine Protein Negative (Neg-Trace)
[2022-04-21 11:20] LABS: Bacteria Urine None Seen (None Seen); Hyaline Casts Urine 0-2 /LPF (0-2); RBC Urine 0-2 /HPF (0-2); UACC Culture Trigger YES; WBC Urine 0-5 /HPF (0-5)
[2022-04-21 11:29] LABS: Alanine Aminotransferase 34 U/L (0-31); Alkaline Phosphatase 53 U/L (39-117); Anion Gap 12 (12-20); Aspartate Amino Transferase 27 U/L (5-31); Bilirubin Total 0.6 mg/dL (0.0-1.0); Blood Urea Nitrogen 18 mg/dL (9-16); Calcium 9.6 mg/dL (8.4-10.2); Carbon Dioxide 29 mmol/L (22-29); Chloride 103 mmol/L (96-108); Cholesterol 221 mg/dL; Estimated Glomerular Filt Rate > 60; Glucose Fasting 86 mg/dL (60-99); HDL Cholesterol 54 mg/dL; LDL Cholesterol Calculated 149 mg/dl; Potassium 4.3 mmol/L (3.3-5.1); Sodium 140 mmol/L (135-145); Total Protein 7.9 g/dL (6.5-8.0); Triglycerides 94 mg/dL
[2022-04-21 11:52] LABS: TSH reflex Free T4 0.93 uIU/mL (0.32-4.0); Vitamin D 25-OH Total 19.7 ng/mL (>30)
[2022-04-21 12:21] LABS: Folate 7.9 ng/mL (> or = 4.0); Vitamin B12 831 pg/mL (200-900)
== END 2022-04-21 10:21 | disposition home or self-care (01) ==
LOC: HO.LAB 10:20
PROVIDERS: PCP Internal Medicine; Visit Provider Internal Medicine
DX: E78.00 Pure hypercholesterolemia, unspecified (principal); E55.9 Vitamin D deficiency, unspecified; G62.9 Polyneuropathy, unspecified
CPT/HCPCS: 36415; 80053; 80061; 81001; 82306; 82607; 82746; 84443; 87086

== ENCOUNTER 2022-09-08 10:14 | Outpatient (REF) | payer MEDICARE, SELFPAY ==
[2022-09-08 10:30] LABS: MANUAL DIFF FLAG NO
[2022-09-08 10:58] LABS: Basophils Percent Auto 0.7 % (0-2); Eosinophils Absolute Auto 0.1 X10*3/uL (0.0-0.4); Eosinophils Percent Auto 2.2 % (0-4); Hematocrit 39.3 % (37.0-47.0); Hemoglobin 13.3 g/dl (12.0-16.0); Imm Gran Abs Auto 0.02 X10*3/uL (0.00-0.03); Imm Gran Pct Auto 0.4 % (0.0-0.4); Lymphocytes Absolute Auto 1.9 X10*3/uL (1.2-4.9); Lymphocytes Percent Auto 43.6 % (20-40); Mean Corpuscular HGB Conc 33.8 g/dl (31.0-35.0); Mean Corpuscular Hemoglobin 29.6 pg (27.0-33.0); Mean Corpuscular Volume 87.3 fL (80.0-98.0); Mean Platelet Volume 12.1 fL (9.4-12.3); Monocytes Absolute Auto 0.3 X10*3/uL (0.1-1.2); Monocytes Percent Auto 6.1 % (2-11); Neutrophils Absolute Auto 2.1 x10*3/uL (2.0-8.3); Platelet Count 191 X10*3/uL (160-400); Red Cell Distribution Width 13.1 % (11.0-16.0); White Blood Count 4.5 X10*3/uL (4.8-10.8)
[2022-09-08 11:28] LABS: Appearance Urine Clear; Color Urine Yellow; Glucose Urine UA Negative (Negative); Leukocyte Esterase Urine Trace (Negative); Nitrite Urine Negative (Negative); PH 5.5 (5.0-9.0); Specific Gravity - Urine 1.025 (1.005-1.025); UMIC TRIGGER UACC YES; Urine Blood Negative (Negative); Urine Ketones Negative (Negative); Urine Protein Negative (Neg-Trace)
[2022-09-08 11:31] LABS: Bacteria Urine None Seen (None Seen); Hyaline Casts Urine 0-2 /LPF (0-2); RBC Urine 0-2 /HPF (0-2); WBC Urine 0-5 /HPF (0-5)
[2022-09-08 11:39] LABS: Alanine Aminotransferase 38 U/L (0-31); Alkaline Phosphatase 57 U/L (39-117); Anion Gap 10 (12-20); Aspartate Amino Transferase 27 U/L (5-31); Bilirubin Total 1.1 mg/dL (0.0-1.0); Blood Urea Nitrogen 15 mg/dL (9-16); Calcium 9.7 mg/dL (8.4-10.2); Carbon Dioxide 31 mmol/L (22-29); Chloride 105 mmol/L (96-108); Cholesterol 234 mg/dL; Estimated Glomerular Filt Rate > 60; Glucose Fasting 88 mg/dL (60-99); HDL Cholesterol 56 mg/dL; LDL Cholesterol Calculated 157 mg/dl; Potassium 3.8 mmol/L (3.3-5.1); Sodium 142 mmol/L (135-145); Total Protein 7.8 g/dL (6.5-8.0); Triglycerides 105 mg/dL
[2022-09-08 11:44] LABS: Vitamin D 25-OH Total 16.4 ng/mL (>30)
== END 2022-09-08 10:15 | disposition home or self-care (01) ==
LOC: HO.LAB 10:14
PROVIDERS: PCP Internal Medicine; Visit Provider Internal Medicine
DX: I10 Essential (primary) hypertension (principal); E78.00 Pure hypercholesterolemia, unspecified; E55.9 Vitamin D deficiency, unspecified
CPT/HCPCS: 36415; 80053; 80061; 81001; 82306; 85025

== ENCOUNTER 2022-09-14 15:26 | Outpatient (AMB) | payer MEDICARE, SELFPAY ==
--- NOTE | 2022-09-14 15:31 | A.OFFPC_ITS ---
Vital Signs 09/14/22 15:32 Height 5 ft 3 in Weight 166 lb BMI 29.4 BP 138/88 Blood Pressure Location Lt brachial Position Sitting Pulse 57 Pulse Source Pulse Oximeter Temp 96.9 F Temp Source Skin Pulse Oximetry (%) 98 Oxygen Delivery Method Room Air Intake Visit Reasons: hyperlipidemia, HTN, vitamin D deficiency Intake Note: pt is here for HTN, hyperlipidemia, and vit D deficiency Allergies No Known Allergies [No Known Allergies*] Allergy (Verified 12/17/23 15:10) Medication List - Last Reconciled 09/14/22 by Bartolo Huffman MD atenolol-chlorthalidone 50-25 mg 0.5 tabs PO DAILY pazitvagvq-mlonktt-hqghpgbd 50-325-40 mg 2 caps PO Q4-6H PRN 30 days cholecalciferol (vitamin D3) 50 mcg PO DAILY 90 days Tobacco use date assessed: 09/14/22 Fall risk assessment: No Falls in past year Last assessed Fall Risk: 09/14/22 HPI hyperlipidemia, HTN, vitamin D deficiency HPI Details Patient comes in today for her follow up visit States that she has been experiencing increased pain over her left knee often lately She has not noticed any swelling in her knee and denies any recent injury or trauma to her knee States that she feels okay otherwise Denies any headaches or dizziness Denies any chest pains, no SOB No nausea/vomiting, no abdominal pain No change in bowel habits noted Needs a couple of her Rx refilled Had her follow up labs done last week - to discuss her results [facility] Medical History Neuropathy Pain in both hands Paresthesia of both hands Overweight (BMI 25.0-29.9) Allergic rhinitis Migraine Pure hypercholesterolemia Benign essential hypertension Surgical History Hx of colonoscopy History of removal of retained hardware (~01/2017) History of ankle surgery (~2002) History of lumbosacral spine surgery History of oophorectomy Family History Father Diabetes Hypertension Mother Hypertension Other Mental health problem Social History Housing: House Alcohol intake: current Alcohol intake frequency: holidays/special occasions only Alcohol type: wine Patient Tobacco Use Status: Never used Tobacco e-Cigarette/Vaping Use: Never Used Second Hand Smoke Exposure: No service: No Current occupational status: retired Cognitive needs: No Hearing needs: No Vision needs: Yes (Glasses) Questionnaire PHQ-9 Over the last 2 weeks, how often have you been bothered by any of the following problems? 1. Little interest or pleasure in doing things: not at all 2. Feeling down, depressed, or hopeless: not at all 3. Trouble falling or staying asleep, or sleeping too much: not at all 4. Feeling tired or having little energy: not at all 5. Poor appetite or overeating: not at all 6. Feeling bad about yourself - or that you are a failure or have let yourself or your family down: not at all 7. Trouble concentrating on things, such as reading the newspaper or watching television: not at all 8. Moving or speaking so slowly that other people could have noticed. Or the opposite - being so fidgety or restless that you have been moving around a lot more than usual: not at all 9. Thoughts that you would be better off or of hurting yourself in some way: not at all Total score: 0 Depression Screening Interpretation: Negative 02682 - PHQ-9 Billing: Yes Source: Developed by Drs. Donald Be, Pilar Laguerre, Jae Upton and colleagues, with an educational cosmo from [employer]. Thrive Questionnaire Declines Thrive assessment: No Date Thrive assessed: 09/14/22 I am a: Patient What is your living situation today?: I have a steady place to live Within the past 12 months, did the food you bought not last and you didn't have the money to get more?: Never true Within the past 12 months, did you worry whether your food would run out before you got money to buy more?: Never true Do you have trouble paying for medicines?: No Do you have trouble getting transportation to medical appointments?: No Do you have trouble paying your heating and electricity bill?: No Do you have trouble taking care of your child, family member or friend?: No Do you have trouble with day-to-day activities such as bathing, preparing meals, shopping, managing finances, etc.?: No Are you currently unemployed and looking for a job?: No Are you interested in more education?: No Currently or been in a relationship where the following occur: no concerns reported AUDIT C Alcohol Use Questionnaire (AUDIT-C) 1. How often do you have a drink containing alcohol?: Monthly or less 2. How many drinks containing alcohol do you have on a typical day when you are drinking?: 1 or 2 3. How often do you have six or more drinks on one occasion?: Never Total Score: 1 Score Reviewed/Action Taken: Yes CECILIA-7 AMB Questionnaire CECILIA-7 Date CECILIA - 7 assessed: 09/14/22 Feeling nervous, anxious, or on edge: 0 = Not at all Not being able to stop or control worryin = Not at all Worrying too much about different things: 0 = Not at all Trouble relaxin = Not at all Being so restless that it is hard to sit still: 0 = Not at all Becoming easily annoyed or irritable: 0 = Not at all Feeling afraid as if something awful might happen: 0 = Not at all Total CECILIA-7 score (0-4 normal; 5-9 mild; 10-14 moderate; 15-21 severe): 0 Source: Developed by Drs. Donald Be, Pilar Laguerre, Jae Upton and colleagues, with an educational cosmo from [employer]. Review of Systems Const Denies chills, Denies fatigue, Denies fever(s) and Denies headache(s) ENT Denies dysphagia, Denies dizziness, Denies otalgia, Denies headache(s), Denies odynophagia and Denies sore throat Card Denies chest pain, Denies palpitations and Denies dyspnea Resp Denies chest congestion, Denies cough and Denies dyspnea GI Denies abdominal pain, Denies constipation, Denies dysphagia, Denies heartburn, Denies diarrhea, Denies nausea, Denies odynophagia and Denies vomiting Denies difficulty voiding, Denies nocturia, Denies dysuria and Denies urinary urgency Musc Reports arthralgias (over both wrists; increased over the left knee recently), Reports numbness (on and off in both hands) and Reports tingling (on and off in both hands) Skin/Breast Denies rash Neuro Denies dizziness, Denies headache(s), Reports numbness (on and off in both hands) and Reports tingling (on and off in both hands) Endo Denies fatigue and Denies palpitations Physical exam (Primary Care) Vital Signs: Last Vital Signs Temp 96.9 F 09/14/22 15:32 Pulse 57 09/14/22 15:32 BP 138/88 09/14/22 15:32 Pulse Ox 98 09/14/22 15:32 Oxygen Delivery Method Room Air 09/14/22 15:32 BMI result Body Mass Index 29.4 Tobacco/Smoking Status: Tobacco use Status Tobacco use date assessed 09/14/22 09/14/22 15:39 Patient Tobacco Use Status Never used Tobacco 09/14/22 15:39 e-Cigarette/Vaping Use Never Used 09/14/22 15:39 PHQ-9: PHQ-9 Score PHQ-9: Total score 0 09/14/22 15:52 Depression Screening Interpretation: Negative Thrive Assessment: Date of Thrive Assessment Date Thrive assessed 09/14/22 09/14/22 15:39 Currently or been in a relationship where the following occur: no concerns reported Const General: no acute distress and alert HENMT Ears: TM's normal bilaterally and EAC's normal Throat: Yes posterior oropharynx normal and Yes tonsils normal (no TP congestion noted) Neck Neck: Yes no lymphadenopathy and Yes supple Thyroid: Thyroid normal Resp Auscultation: clear to auscultation bilaterally, no crackles, no rales and no wheezes Cardio Rate: regular rate Rhythm: regular rhythm Heart sounds: no murmurs GI Palpation (GI): Soft to palpation and nontender Auscultation: normal bowel sounds Skin Rashes: no rashes Extrem General: Yes no clubbing, cyanosis or edema Left lower extremity: knee Details: tenderness; no swelling Results Reviewed Results Reviewed: Laboratory Tests 09/08/22 09/08/22 09/08/22 10:28 10:28 10:32 WBC 4.5 L Hgb 13.3 Hct 39.3 Plt Count 191 Sodium 142 Potassium 3.8 Creatinine 0.92 Estimated GFR > 60 Fasting Glucose 88 Calcium 9.7 AST 27 ALT 38 H Triglycerides 105 Cholesterol 234 LDL Cholesterol, Calc 157 HDL Cholesterol 56 25-OH Vitamin D Total 16.4 Ur Specific [place] 1.025 Urine Protein Negative Urine Glucose (UA) Negative Urine Blood Negative Assessment and Plan Assessment & Plan (1) Benign essential hypertension: Code(s): I10 - Essential (primary) hypertension Plan: Reinforced? low-sodium diet -? goal is systolic BP of at least 130 to 140 mm or less Continue Atenolol-Chlorthalidone tablet 50-25 mg 1/2 tablet QD (2) Pure hypercholesterolemia: Code(s): E78.00 - Pure hypercholesterolemia, unspecified Plan: Results of her labs done last week reviewed and discussed with patient -? her lipids have again increased slighttly from previous Reinforced?low cholesterol diet -?patient prefers to continue with diet modification for now and still does not wish to take any cholesterol-lowering medication at this time Patient had a normal stress test done back in 2017 Will recheck her labs in 4 months for follow-up (3) Migraine: Code(s): G43.909 - Migraine, unspecified, not intractable, without status migrainosus Qualifiers: Intractability: not intractable Migraine type: without aura Status migrainosus presence: without status migrainosus Qualified Code(s): G43.009 - Migraine without aura, not intractable, without status migrainosus Plan: Patient's migraine has been stable recently - would like to continue with her current management for now Reinforced avoidance of migraine triggers Continue Fioricet PRN Is again reminded of the option of prophylactic treatment for migraine if her he adaches get worse or progress (4) Allergic rhinitis: Code(s): J30.9 - Allergic rhinitis, unspecified Qualifiers: Allergic rhinitis seasonality: unspecified Allergic rhinitis trigger: unspecified Qualified Code(s): J30.9 - Allergic rhinitis, unspecified Plan: Continue Fluticasone nasal spray QD PRN (5) Vitamin D deficiency: Code(s): E55.9 - Vitamin D deficiency, unspecified Plan: Improving slowly; cotinue Vitamin D3 2000 units QD (6) Left knee pain: Code(s): M25.562 - Pain in left knee Qualifiers: Chronicity: unspecified Qualified Code(s): M25.562 - Pain in left knee Plan: Will send her for x-rays of the left knee for further evaluation (7) Neuropathy: Comment: (+) bilateral median nerve neuropathy - EMG & NCV done in 06/2020 Code(s): G62.9 - Polyneuropathy, unspecified Plan: EMG and NCV of both upper extremities done back in June 2020 revealed (+) moderate bilateral median nerve neuropathy and mild bilateral ulnar nerve neuropathy Will continue with conservative management for now and reserve referral to surgery only as a last resort - advised to continue using wrist splints as often as she can to help minimize her symptoms (8) Overweight (BMI 25.0-29.9): Code(s): E66.3 - Overweight Plan: Reinforced diet/exercise as tolerated/lose weight Plan Follow up in 4 months Orders: Orders Complete Blood Count Auto Diff 4 Months I10 - Essential (primary) hypertension Lipid Panel 4 Months E78.00 - Pure hypercholesterolemia, unspecified Comprehensive [place]. Panel Fast 4 Months E78.00 - Pure hypercholesterolemia, unspecified UA CC w/rflx Micro + Cult 4 Months R30.0 - Dysuria XR knee LT 4V 09/14/22 M25.562 - Pain in left knee TSH reflex Free T4 4 Months E78.00 - Pure hypercholesterolemia, unspecified Vitamin D 25-OH Total 4 Months E55.9 - Vitamin D deficiency, unspecified Medications: Changed From pwmjgfkabm-pvdtfrz-nluuouxz 50-325-40 mg do not exceed 3 doses per 24 hrs 2 caps PO Q4-6H 30 days PRN 180 caps 3RF headache G43.009 - Migraine without aura, not intractable, without status migrainosus To zyojanexke-vvsnagp-ykokoxjw 50-325-40 mg do not exceed 3 doses per 24 hrs 2 caps PO Q4-6H PRN 180 caps 3RF headache 30 days G43.009 - Migraine without aura, not intractable, without status migrainosus From atenolol-chlorthalidone 50-25 mg 0.5 tabs PO DAILY 45 tabs 3RF I10 - Essential (primary) hypertension To atenolol-chlorthalidone 50-25 mg 0.5 tabs PO DAILY 45 tabs 3RF I10 - Essential (primary) hypertension Coding Level of Care Code Est Pt Level 4 (43871) Diagnoses Benign essential hypertension I10 Pure hypercholesterolemia E78.00 Migraine without aura and without status migrainosus, not intractable G43.009 Intractability: not intractable Migraine type: without aura Status migrainosus presence: without status migrainosus Allergic rhinitis, unspecified seasonality, unspecified trigger J30.9 Allergic rhinitis seasonality: unspecified Allergic rhinitis trigger: unspecified Vitamin D deficiency E55.9 Left knee pain, unspecified chronicity M25.562 Chronicity: unspecified Neuropathy G62.9 Overweight (BMI 25.0-29.9) E66.3
[2022-09-14 15:32] VITALS: BP 138/88; PULSE 57; TEMP 36.1; O2SAT 98; BMI 29.4
== END 2022-09-14 16:04 | disposition home or self-care (01) ==
LOC: HO.HMGH 15:26
PROVIDERS: PCP Internal Medicine; Visit Provider Internal Medicine
DX: I10 Essential (primary) hypertension (principal); E78.00 Pure hypercholesterolemia, unspecified; G43.009 Migraine without aura, not intractable, without status migrainosus; J30.9 Allergic rhinitis, unspecified; E55.9 Vitamin D deficiency, unspecified; M25.562 Pain in left knee; G62.9 Polyneuropathy, unspecified; E66.3 Overweight
CPT/HCPCS: 99499

== ENCOUNTER 2022-09-14 16:08 | Outpatient (REF) | payer MEDICARE, SELFPAY ==
--- NOTE | ~2022-09-14 | XR_ITS ---
EXAMINATION: XR KNEE, LEFT CLINICAL INFORMATION: Pain COMPARISON: None TECHNIQUE: 4 views of the knee FINDINGS: No acute fracture or dislocation. Joint spaces are maintained. No joint effusion. Soft tissues are unremarkable. XR/XR knee LT 4V IMPRESSION: * No acute osseous abnormality.
== END 2022-09-14 16:09 | disposition home or self-care (01) ==
LOC: HO.XRAY 16:08
PROVIDERS: PCP Internal Medicine; Visit Provider Internal Medicine
DX: M25.562 Pain in left knee (principal)
CPT/HCPCS: 73564

== ENCOUNTER 2022-11-05 09:43 | Outpatient (REF) | payer MEDICARE, SELFPAY ==
--- NOTE | ~2022-11-05 | XR_ITS ---
EXAMINATION: XR SHOULDER, LEFT CLINICAL INFORMATION: Pain in left shoulder COMPARISON: None available. TECHNIQUE: AP external rotation, Grashey, scapular Y, and axillary views of the left shoulder. FINDINGS: The bones and soft tissues are normal. No fracture. Glenohumeral and acromioclavicular alignment is anatomic with normal joint space. No abnormal soft tissue calcifications. XR/XR shoulder LT min 2V IMPRESSION: Normal left shoulder.
== END 2022-11-05 09:44 | disposition home or self-care (01) ==
LOC: HO.HOSX 09:43
PROVIDERS: Visit Provider Physician Assistant
DX: M75.102 Unspecified rotator cuff tear or rupture of left shoulder, not specified as traumatic (principal)
CPT/HCPCS: 73030; 99202

== ENCOUNTER 2022-11-20 11:07 | Outpatient (REF) | payer MEDICARE, SELFPAY ==
--- NOTE | ~2022-11-20 | MM_ITS ---
EXAMINATION: MM SCREENING DIGITAL BREAST TOMOSYNTHESIS, BILATERAL CLINICAL INFORMATION: Screening. Asymptomatic. The lifetime risk of breast cancer based on the Tyrer-Cuzick Model is 5%. COMPARISON: Mammography: 11/14/2021, 08/22/2020, 08/17/2019, 07/26/2018 TECHNIQUE: Digital breast tomosynthesis is performed in both the craniocaudal and mediolateral oblique views along with computer-aided detection (CAD). Synthesized 2D images are generated from the tomosynthesis. FINDINGS: There are scattered areas of fibroglandular density (ACR BI-RADS breast composition Category b). There are no significant masses, abnormal calcifications, or other abnormalities. No developing density or architectural abnormality. There are scattered bilateral isolated and some small grouped benign round calcifications and some rim calcifications. The axilla and skin contours are unremarkable. MM/MM tomosynthesis screening BI IMPRESSION: No mammographic evidence of malignancy. ASSESSMENT: BI-RADS 2: Benign RECOMMENDATION: Routine annual mammography screening. This patient's information was entered into a reminder system with a target due date for their next mammogram.
== END 2022-11-20 11:08 | disposition home or self-care (01) ==
LOC: HO.MAMMO 11:07
PROVIDERS: PCP Internal Medicine; Visit Provider Internal Medicine
DX: Z12.31 Encounter for screening mammogram for malignant neoplasm of breast (principal)
CPT/HCPCS: 77063; 77067

== ENCOUNTER 2022-11-25 13:53 | Outpatient (RCR) | payer MEDICARE, SELFPAY ==
--- NOTE | 2022-11-25 15:08 | MHC.PT.EP ---
[facility] [place] [facility] [place] Office [place] Office [address] [phone] F: [phone] F: [phone] F: [phone] F: [phone] Physical Therapy Plan of Care Date of Evaluation: Date of Surgery: Diagnosis: painful arc syndrome Assessment: Patient is a 72 year old R handed female who presents with s/s consistent with L shoulder impingement syndrome/painful arc. She is retired and is mostly sedentary at this time. Patient past medical history includes obesity, and b/l hand tingling. Current impairments include pain, posture, ROM, strength, activity tolerance and functional mobility. Functional limitations include decreased ability to lift, carry, push, pull, dress, and sleep. Patient is motivated with good rehab potential. Skilled PT will address impairments and functional limitations in order to achieve goals. Frequency and Duration: The patient will be seen 2x/week for 5 weeks Short Term Goals: I with HEP - 2 weeks Pain free full AROM - 3 weeks improved postural awareness - 3 weeks Palletizer Goals: SPADI 40/130 or better - 5 weeks Strength 4/5 grossly - 5 weeks pec tightness min - 5 weeks 2/10 max pain with all ADLs - 5 weeks impingement cluster (-) - 5 weeks Treatment Plan: Modalities to reduce pain, spasms and effusion. Manual therapy to restore motion and function. Therapeutic exercise to improve strength and flexibility. Neuromuscular re-education for posture and balance. Therapeutic activities to return to functional activities of daily living. Electronically signed by: Doe Chapin, PT Please sign and return to therapist. Thank you for your referral.
--- NOTE | 2023-01-26 08:16 | MHC.PT.DC ---
[facility] [place] Office [place] Office [place] Office [address] [phone] F: [phone] F: [phone] F: [phone] F: [phone] Physical Therapy Discharge Report Diagnosis: painful arc syndrome Date of Surgery: Date of Evaluation: 11/25/22 Date of Discharge: 12/17/22 Treatments to Date: 1 Cancellations to Date: No Shows to Date: Discharge Status: Patient Elected to Stop Discharge Summary: Did not return after evaluation. Patient is a 72 year old R handed female who presents with s/s consistent with L shoulder impingement syndrome/painful arc. She is retired and is mostly sedentary at this time. Patient past medical history includes obesity, and b/l hand tingling. Current impairments include pain, posture, ROM, strength, activity tolerance and functional mobility. Functional limitations include decreased ability to lift, carry, push, pull, dress, and sleep. Patient is motivated with good rehab potential. Skilled PT will address impairments and functional limitations in order to achieve goals. Electronically signed by: Doe Chapin, PT Please sign and return to therapist. Thank you for your referral.
== END 2023-01-26 08:16 | disposition home or self-care (01) ==
LOC: HO.PTCHIC 13:53
PROVIDERS: PCP Internal Medicine; Visit Provider Physician Assistant
DX: M75.102 Unspecified rotator cuff tear or rupture of left shoulder, not specified as traumatic (principal)
CPT/HCPCS: 97110; 97162

== ENCOUNTER 2023-01-14 11:51 | Outpatient (REF) | payer MEDICARE, SELFPAY ==
[2023-01-14 12:00] LABS: MANUAL DIFF FLAG NO
[2023-01-14 12:46] LABS: Basophils Percent Auto 0.8 % (0-2); Eosinophils Absolute Auto 0.1 X10*3/uL (0.0-0.4); Eosinophils Percent Auto 2.8 % (0-4); Hematocrit 37.8 % (37.0-47.0); Hemoglobin 12.9 g/dl (12.0-16.0); Imm Gran Abs Auto 0.01 X10*3/uL (0.00-0.03); Imm Gran Pct Auto 0.2 % (0.0-0.4); Lymphocytes Absolute Auto 2.3 X10*3/uL (1.2-4.9); Lymphocytes Percent Auto 46.2 % (20-40); Mean Corpuscular HGB Conc 34.1 g/dl (31.0-35.0); Mean Corpuscular Hemoglobin 30.7 pg (27.0-33.0); Mean Platelet Volume 12.6 fL (9.4-12.3); Monocytes Absolute Auto 0.3 X10*3/uL (0.1-1.2); Monocytes Percent Auto 6.1 % (2-11); Neutrophils Absolute Auto 2.2 x10*3/uL (2.0-8.3); Neutrophils Percent Auto 43.9 % (45-73); Platelet Count 206 X10*3/uL (160-400); Red Cell Distribution Width 13.2 % (11.0-16.0); White Blood Count 4.9 X10*3/uL (4.8-10.8)
[2023-01-14 13:16] LABS: Appearance Urine Clear; Color Urine Yellow; Glucose Urine UA Negative (Negative); Leukocyte Esterase Urine Trace (Negative); Nitrite Urine Negative (Negative); UMIC TRIGGER UACC YES; Urine Blood Negative (Negative); Urine Ketones Trace mg/dL (Negative); Urine Protein Trace mg/dL (Neg-Trace)
[2023-01-14 13:18] LABS: Alanine Aminotransferase 25 U/L (0-31); Alkaline Phosphatase 55 U/L (39-117); Anion Gap 12 (12-20); Aspartate Amino Transferase 23 U/L (5-31); Bilirubin Total 1.1 mg/dL (0.0-1.0); Blood Urea Nitrogen 15 mg/dL (9-16); Calcium 9.9 mg/dL (8.4-10.2); Carbon Dioxide 29 mmol/L (22-29); Chloride 103 mmol/L (96-108); Cholesterol 235 mg/dL; Estimated Glomerular Filt Rate 60; Glucose Fasting 82 mg/dL (60-99); HDL Cholesterol 54 mg/dL; LDL Cholesterol Calculated 163 mg/dl; Potassium 3.9 mmol/L (3.3-5.1); Sodium 140 mmol/L (135-145); Total Protein 7.9 g/dL (6.5-8.0); Triglycerides 90 mg/dL
[2023-01-14 13:19] LABS: Bacteria Urine None Seen (None Seen); RBC Urine 0-2 /HPF (0-2); WBC Urine 0-5 /HPF (0-5)
[2023-01-14 13:35] LABS: TSH reflex Free T4 0.89 uIU/mL (0.32-4.0)
== END 2023-01-14 11:52 | disposition home or self-care (01) ==
LOC: HO.LAB 11:51
PROVIDERS: PCP Internal Medicine; Visit Provider Internal Medicine
DX: E55.9 Vitamin D deficiency, unspecified (principal); I10 Essential (primary) hypertension; E78.00 Pure hypercholesterolemia, unspecified
CPT/HCPCS: 36415; 80053; 80061; 81001; 81003; 82306; 84443; 85025

== ENCOUNTER 2023-07-01 12:16 | Outpatient (REF) | payer MEDICARE, SELFPAY ==
[2023-07-01 12:35] LABS: MANUAL DIFF FLAG NO
[2023-07-01 13:02] LABS: Basophils Percent Auto 0.6 % (0-2); Eosinophils Absolute Auto 0.1 X10*3/uL (0.0-0.4); Eosinophils Percent Auto 1.9 % (0-4); Hematocrit 37.3 % (37.0-47.0); Hemoglobin 12.8 g/dl (12.0-16.0); Imm Gran Abs Auto 0.01 X10*3/uL (0.00-0.03); Imm Gran Pct Auto 0.2 % (0.0-0.4); Lymphocytes Absolute Auto 2.1 X10*3/uL (1.2-4.9); Lymphocytes Percent Auto 44.3 % (20-40); Mean Corpuscular HGB Conc 34.3 g/dl (31.0-35.0); Mean Corpuscular Volume 87.6 fL (80.0-98.0); Mean Platelet Volume 12.4 fL (9.4-12.3); Monocytes Absolute Auto 0.3 X10*3/uL (0.1-1.2); Monocytes Percent Auto 5.4 % (2-11); Neutrophils Absolute Auto 2.3 x10*3/uL (2.0-8.3); Neutrophils Percent Auto 47.6 % (45-73); Platelet Count 194 X10*3/uL (160-400); Red Blood Count 4.26 X10*6/uL (4.20-5.50); Red Cell Distribution Width 13.2 % (11.0-16.0); White Blood Count 4.8 X10*3/uL (4.8-10.8)
[2023-07-01 13:42] LABS: Appearance Urine Clear; Color Urine Yellow; Glucose Urine UA Negative (Negative); Leukocyte Esterase Urine Negative (Negative); Nitrite Urine Negative (Negative); PH 5.5 (5.0-9.0); Specific Gravity - Urine 1.025 (1.005-1.025); Urine Blood Negative (Negative); Urine Ketones Negative (Negative); Urine Protein Negative (Neg-Trace)
[2023-07-01 13:50] LABS: Alanine Aminotransferase 26 U/L (0-31); Albumin Level 4.1 g/dL (3.5-5.0); Alkaline Phosphatase 50 U/L (39-117); Anion Gap 7 (12-20); Aspartate Amino Transferase 24 U/L (5-31); Bilirubin Total 0.8 mg/dL (0.0-1.0); Blood Urea Nitrogen 20 mg/dL (9-16); Calcium 9.9 mg/dL (8.4-10.2); Carbon Dioxide 32 mmol/L (22-29); Chloride 105 mmol/L (96-108); Cholesterol 247 mg/dL (<200); Estimated Glomerular Filt Rate > 60; Glucose Fasting 86 mg/dL (60-99); HDL Cholesterol 55 mg/dL (>40); LDL Cholesterol Calculated 174 mg/dL (<100); Potassium 3.6 mmol/L (3.3-5.1); Sodium 140 mmol/L (135-145); Total Protein 8.2 g/dL (6.5-8.0); Triglycerides 91 mg/dL (<150)
[2023-07-01 14:25] LABS: Vitamin D 25-OH Total 8.1 ng/mL (>30)
== END 2023-07-01 12:17 | disposition home or self-care (01) ==
LOC: HO.LAB 12:16
PROVIDERS: PCP Internal Medicine; Visit Provider Internal Medicine
DX: R30.0 Dysuria (principal); E78.00 Pure hypercholesterolemia, unspecified; I10 Essential (primary) hypertension; E55.9 Vitamin D deficiency, unspecified
CPT/HCPCS: 36415; 80053; 80061; 81003; 82306; 84443; 85025

== ENCOUNTER 2023-07-05 15:44 | Outpatient (AMB) | payer MEDICARE, SELFPAY ==
[2023-07-05 15:48] VITALS: BP 132/78; PULSE 60; O2SAT 99; BMI 28.4
--- NOTE | 2023-07-05 15:48 | MHC.PC.OV ---
Vital Signs 07/05/23 15:48 Height 5 ft 3 in Weight 160 lb 6 oz BMI 28.4 BP 132/78 Blood Pressure Location Lt brachial Position Sitting Pulse 60 Pulse Source Pulse Oximeter Pulse Oximetry (%) 99 Oxygen Delivery Method Room Air Intake Visit Reasons: hyperlipidemia Chief Of Internal Medicine Required: No Accompanied by: Self / Same As Patient Allergies No Known Allergies [No Known Allergies*] Allergy (Verified 07/05/23 16:15) Medication List - Last Reconciled 07/05/23 by Bartolo Huffman MD atenolol-chlorthalidone 50-25 mg 0.5 tabs PO DAILY vrgozoisnh-vcdvjzu-idrcedys 50-325-40 mg 2 caps PO Q4-6H PRN 30 days cholecalciferol (vitamin D3) 50 mcg PO DAILY 90 days Tobacco use date assessed: 07/05/23 Fall risk assessment: No Falls in past year Last assessed Fall Risk: 07/05/23 Dental Screening Dental Screen Date: 07/05/23 Did you have a dental visit in the last 12 months?: Yes Did you have a dental problem in the last 6 months where you did not have access to dental care?: No Was dental information given to patient?: Patient has dentist HPI hyperlipidemia HPI Details Patient comes in today for her follow up visit States that she feels okay Still has on and off left shoulder pain and discomfort but states that her shoulder has been quiet lately She denies any headaches or dizziness Denies any chest pains, no SOB No nausea/vomiting, no abdominal pain No change in bowel habits noted Needs her BP med Rx refilled Had her follow up labs done a few days ago - to discuss her results [facility] Medical History Neuropathy Pain in both hands Paresthesia of both hands Overweight (BMI 25.0-29.9) Allergic rhinitis Migraine Pure hypercholesterolemia Benign essential hypertension Surgical History Hx of colonoscopy History of removal of retained hardware (~01/2017) History of ankle surgery (~2002) History of lumbosacral spine surgery History of oophorectomy Family History Father Diabetes Hypertension Mother Hypertension Other Mental health problem Social History Housing: House Alcohol intake: current Alcohol intake frequency: holidays/special occasions only Alcohol type: wine Patient Tobacco Use Status: Never used Tobacco e-Cigarette/Vaping Use: Never Used Second Hand Smoke Exposure: No service: No Current occupational status: retired Cognitive needs: No Hearing needs: No Vision needs: Yes Questionnaire PHQ-9 Over the last 2 weeks, how often have you been bothered by any of the following problems? 1. Little interest or pleasure in doing things: not at all 2. Feeling down, depressed, or hopeless: not at all 3. Trouble falling or staying asleep, or sleeping too much: not at all 4. Feeling tired or having little energy: not at all 5. Poor appetite or overeating: not at all 6. Feeling bad about yourself - or that you are a failure or have let yourself or your family down: not at all 7. Trouble concentrating on things, such as reading the newspaper or watching television: not at all 8. Moving or speaking so slowly that other people could have noticed. Or the opposite - being so fidgety or restless that you have been moving around a lot more than usual: not at all 9. Thoughts that you would be better off or of hurting yourself in some way: not at all Total score: 0 Depression Screening Interpretation: Negative Depression Screening Done: Yes [id number] - PHQ-9 Billing: Yes Source: Developed by Drs. Donald Be, Pilar Laguerre, Jae Upton and colleagues, with an educational cosmo from [employer]. Thrive Questionnaire Date Thrive assessed: 07/05/23 I am a: Patient What is your living situation today?: I have a steady place to live Within the past 12 months, did the food you bought not last and you didn't have the money to get more?: Never true Within the past 12 months, did you worry whether your food would run out before you got money to buy more?: Never true Do you have trouble paying for medicines?: No Do you have trouble getting transportation to medical appointments?: No Do you have trouble paying your heating and electricity bill?: No Do you have trouble taking care of your child, family member or friend?: No Do you have trouble with day-to-day activities such as bathing, preparing meals, shopping, managing finances, etc.?: No Are you currently unemployed and looking for a job?: No Are you interested in more education?: No Please select the resources that you would like help with: None Currently or been in a relationship where the following occur: no concerns reported AUDIT C Alcohol Use Questionnaire (AUDIT-C) 1. How often do you have a drink containing alcohol?: Monthly or less 2. How many drinks containing alcohol do you have on a typical day when you are drinking?: 1 or 2 3. How often do you have six or more drinks on one occasion?: Never Total Score: 1 Score Reviewed/Action Taken: Yes CECILIA-7 AMB Questionnaire CECILIA-7 Date CECILIA - 7 assessed: 07/05/23 Feeling nervous, anxious, or on edge: 0 = Not at all Not being able to stop or control worryin = Not at all Worrying too much about different things: 0 = Not at all Trouble relaxin = Not at all Being so restless that it is hard to sit still: 0 = Not at all Becoming easily annoyed or irritable: 0 = Not at all Feeling afraid as if something awful might happen: 0 = Not at all Total CECILIA-7 score (0-4 normal; 5-9 mild; 10-14 moderate; 15-21 severe): 0 Source: Developed by Drs. Donald Be, Pilar Laguerre, Jae Upton and colleagues, with an educational cosmo from [employer]. Review of Systems Const Denies fatigue, Denies fever(s) and Denies headache(s) ENT Denies dysphagia, Denies dizziness, Denies otalgia, Denies headache(s), Denies odynophagia and Denies sore throat Card Denies chest pain, Denies palpitations and Denies dyspnea Resp Denies cough and Denies dyspnea GI Denies abdominal pain, Denies constipation, Denies dysphagia, Denies heartburn, Denies diarrhea, Denies nausea, Denies odynophagia and Denies vomiting Denies difficulty voiding, Denies nocturia and Denies dysuria Musc Reports arthralgias (over both wrists; on and off in the left shoulder), Reports numbness (on and off in both hands) and Reports tingling (on and off in both hands) Skin/Breast Denies rash Neuro Denies dizziness, Denies headache(s), Reports numbness (on and off in both hands) and Reports tingling (on and off in both hands) Endo Denies fatigue and Denies palpitations Physical exam (Primary Care) Vital Signs: Last Vital Signs Pulse 60 07/05/23 15:48 BP 132/78 07/05/23 15:48 Pulse Ox 99 07/05/23 15:48 Oxygen Delivery Method Room Air 07/05/23 15:48 BMI result Body Mass Index 28.4 Tobacco/Smoking Status: Tobacco use Status Tobacco use date assessed 07/05/23 07/05/23 15:53 Patient Tobacco Use Status Never used Tobacco 07/05/23 15:53 e-Cigarette/Vaping Use Never Used 07/05/23 15:53 PHQ-9: PHQ-9 Score PHQ-9: Total score 0 07/05/23 15:53 Depression Screening Interpretation: Negative Thrive Assessment: Date of Thrive Assessment Date Thrive assessed 07/05/23 07/05/23 15:53 Currently or been in a relationship where the following occur: no concerns reported Const General: no acute distress and alert HENMT Ears: TM's normal bilaterally and EAC's normal Throat: Yes posterior oropharynx normal and Yes tonsils normal (no TP congestion noted) Neck Neck: Yes no lymphadenopathy and Yes supple Resp Auscultation: clear to auscultation bilaterally, no crackles, no rales and no wheezes Cardio Rate: regular rate Rhythm: regular rhythm Heart sounds: no murmurs GI Palpation (GI): Soft to palpation and nontender Auscultation: normal bowel sounds Back/Spine/Pelvis Thoracic/Lumbar Spine: thoracic and lumbar spine normal to inspection Skin Rashes: no rashes Extrem General: Yes no clubbing, cyanosis or edema Left upper extremity: shoulder/upper arm Details: tenderness (mild) Location: of the A-C joint and normal ROM Results Reviewed Results Reviewed: Laboratory Tests 07/01/23 07/01/23 07/01/23 12:30 12:30 12:32 WBC 4.8 Hgb 12.8 Hct 37.3 Plt Count 194 Sodium 140 Potassium 3.6 Creatinine 0.88 Estimated GFR > 60 Fasting Glucose Calcium AST ALT 26 Triglycerides 91 Cholesterol 247 H LDL Cholesterol, Calc 174 H HDL Cholesterol 55 25-OH Vitamin D Total 8.1 L TSH 1.00 Ur Specific [place] 1.025 Urine Protein Negative Urine Glucose (UA) Negative Urine Blood Negative 07/01/23 07/01/23 12:32 12:32 WBC Hgb Hct Plt Count Sodium Potassium Creatinine Estimated GFR Fasting Glucose 86 Calcium 9.9 AST 24 ALT Triglycerides Cholesterol LDL Cholesterol, Calc HDL Cholesterol 25-OH Vitamin D Total TSH Ur Specific [place] Urine Protein Urine Glucose (UA) Urine Blood Assessment and Plan Assessment & Plan (1) Pure hypercholesterolemia: Code(s): E78.00 - Pure hypercholesterolemia, unspecified Plan: Results of her labs done a few days ago reviewed and discussed with patient -?cautioned that her cholesterol levels, especially her total and LDL cholesterol, have again increased from previous Reinforced?low cholesterol diet -?patient now agrees to try some Rx to help lower her numbers She again had a normal stress test done back in 2017 and currently has no acute cardiac symptoms but recommends that she start taking cholesterol-lowering medications for primary prevention Will start her on Atorvastatin 10 mg QD Will recheck her labs and fasting lipids in 4 months for follow-up (2) Benign essential hypertension: Code(s): I10 - Essential (primary) hypertension Plan: Reinforced? low-sodium diet -? goal is systolic BP of at least 130 to 140 mm or less Continue Atenolol-Chlorthalidone tablet 50-25 mg 1/2 tablet QD - Rx refilled (3) Migraine: Code(s): G43.909 - Migraine, unspecified, not intractable, without status migrainosus Qualifiers: Migraine type: without aura Status migrainosus presence: without status migrainosus Intractability: not intractable Qualified Code(s): G43.009 - Migraine without aura, not intractable, without status migrainosus Plan: Stable lately - would like to continue with her current management Reinforced avoidance of migraine triggers Is again reminded of the option of prophylactic treatment for migraine if her headaches get worse or progress (4) Allergic rhinitis: Code(s): J30.9 - Allergic rhinitis, unspecified Qualifiers: Allergic rhinitis trigger: unspecified Allergic rhinitis seasonality: unspecified Qualified Code(s): J30.9 - Allergic rhinitis, unspecified Plan: Continue Fluticasone nasal spray QD PRN (5) Left shoulder pain: Code(s): M25.512 - Pain in left shoulder Qualifiers: Chronicity: unspecified Qualified Code(s): M25.512 - Pain in left shoulder Plan: X-rays of the left shoulder done back in October 2022 came out normal Suspect that she may have some rotator cuff pathology in her left shoulder and advised her to check back with orthopedics if her symptoms start flaring up again as she may need an MRI of the left shoulder for further evaluation (6) Vitamin D deficiency: Code(s): E55.9 - Vitamin D deficiency, unspecified Plan: She is cautioned that her Vitamin D level has dropped significantly from previous - patient admits that she accidentally dropped her dose down to 1000 units QD on her Vitamin D Will have her go back up to Vitamin D3 at 2000 units QD Will recheck her Vitamin D level in 4 months for follow up (7) Neuropathy: Comment: (+) bilateral median nerve neuropathy - EMG & NCV done in 06/2020 Code(s): G62.9 - Polyneuropathy, unspecified Plan: EMG and NCV of both upper extremities done back in June 2020 revealed (+) moderate bilateral median nerve neuropathy and mild bilateral ulnar nerve neuropathy Will continue with conservative management for now and reserve option of referral to surgery only as a last resort - advised to continue using wrist splints as often as she can to help minimize her symptoms (8) Overweight (BMI 25.0-29.9): Code(s): E66.3 - Overweight Plan: Reinforced diet/exercise as tolerated/lose weight Plan Follow up in 4 months Orders: Orders Comprehensive [place]. Panel Fast 4 Months E78.00 - Pure hypercholesterolemia, unspecified Lipid Panel 4 Months E78.00 - Pure hypercholesterolemia, unspecified Medications: New atorvastatin 10 mg PO BEDTIME 90 days 90 tabs 1RF Refilled atenolol-chlorthalidone 50-25 mg 0.5 tabs PO DAILY 45 tabs 3RF I10 - Essential (primary) hypertension Coding Level of Care Code Est Pt Level 4 (49540) Diagnoses Pure hypercholesterolemia E78.00 Benign essential hypertension I10 Migraine without aura and without status migrainosus, not intractable G43.009 Migraine type: without aura Status migrainosus presence: without status migrainosus Intractability: not intractable Allergic rhinitis, unspecified seasonality, unspecified trigger J30.9 Allergic rhinitis trigger: unspecified Allergic rhinitis seasonality: unspecified Left shoulder pain, unspecified chronicity M25.512 Chronicity: unspecified Vitamin D deficiency E55.9 Neuropathy G62.9 Overweight (BMI 25.0-29.9) E66.3
== END 2023-07-05 16:33 | disposition home or self-care (01) ==
PROVIDERS: PCP Internal Medicine; Visit Provider Internal Medicine
DX: E78.00 Pure hypercholesterolemia, unspecified (principal); I10 Essential (primary) hypertension; G43.009 Migraine without aura, not intractable, without status migrainosus; J30.9 Allergic rhinitis, unspecified; M25.512 Pain in left shoulder; E55.9 Vitamin D deficiency, unspecified; G62.9 Polyneuropathy, unspecified; E66.3 Overweight
CPT/HCPCS: 99214

== ENCOUNTER 2023-12-09 12:52 | Outpatient (REF) | payer MEDICARE, SELFPAY ==
[2023-12-09 15:19] LABS: Alanine Aminotransferase 25 U/L (0-31); Alkaline Phosphatase 51 U/L (39-117); Anion Gap 8 (12-20); Aspartate Amino Transferase 22 U/L (5-31); Bilirubin Total 0.7 mg/dL (0.0-1.0); Blood Urea Nitrogen 16 mg/dL (9-16); Calcium 10.2 mg/dL (8.4-10.2); Carbon Dioxide 33 mmol/L (22-29); Chloride 105 mmol/L (96-108); Cholesterol 231 mg/dL (<200); Estimated Glomerular Filt Rate > 60; Glucose Fasting 84 mg/dL (60-99); HDL Cholesterol 55 mg/dL (>40); LDL Cholesterol Calculated 147 mg/dL (<100); Potassium 3.8 mmol/L (3.3-5.1); Sodium 142 mmol/L (135-145); Total Protein 8.2 g/dL (6.5-8.0); Triglycerides 147 mg/dL (<150)
== END 2023-12-09 12:53 | disposition home or self-care (01) ==
LOC: HO.MAMMO 12:52
PROVIDERS: PCP Internal Medicine; Visit Provider Internal Medicine
DX: Z12.31 Encounter for screening mammogram for malignant neoplasm of breast (principal); E78.00 Pure hypercholesterolemia, unspecified
CPT/HCPCS: 36415; 77063; 77067; 80053; 80061

== ENCOUNTER → 2023-12-09 14:15 | Outpatient (BNV) | payer MEDICARE, SELFPAY | PROVIDERS: PCP Internal Medicine; Visit Provider Radiology Diagnostic Radiology | DX: Z12.31 Encounter for screening mammogram for malignant neoplasm of breast (principal) | CPT/HCPCS: 77063; 77067 ==

== ENCOUNTER 2023-12-17 14:34 | Outpatient (AMB) | payer MEDICARE, SELFPAY ==
--- NOTE | 2023-12-17 14:35 | A.OFFPC_ITS ---
Vital Signs 12/17/23 14:37 Height 5 ft 3 in Weight 160 lb BMI 28.3 BP 126/70 Blood Pressure Location Lt brachial Position Sitting Pulse 54 Pulse Source Pulse Oximeter Pulse Oximetry (%) 99 Oxygen Delivery Method Room Air Intake Visit Reasons: hyperlipidemia, htn Intake Note: Patient is here to follow up on HLD, HTN. 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 Accompanied by: Self / Same As Patient Allergies No Known Allergies [No Known Allergies*] Allergy (Verified 12/17/23 15:10) Medication List - Last Reconciled 12/17/23 by Bartolo Huffman MD atenolol-chlorthalidone 50-25 mg 0.5 tabs PO DAILY axzzoczcqk-nfbuhzo-bqbyshqh 50-325-40 mg 2 caps PO Q4-6H PRN 30 days cholecalciferol (vitamin D3) 50 mcg PO DAILY 90 days Tobacco use date assessed: 12/17/23 Fall risk assessment: No Falls in past year Last assessed Fall Risk: 12/17/23 Dental Screening Dental Screen Date: 12/17/23 Did you have a dental visit in the last 12 months?: Yes Did you have a dental problem in the last 6 months where you did not have access to dental care?: No Was dental information given to patient?: Patient has dentist HPI hyperlipidemia, htn HPI Details Patient comes in today for her follow up visit States that she currently feels okay Admits that she did not start taking her Atorvastatin after her last visit as she still wants to continue trying to get her cholesterol levels down without taking any medications She denies any headaches or dizziness Denies any chest pains, no SOB No nausea/vomiting, no abdominal pain No change in bowel habits noted Needs a couple of her Rx refilled Had her follow up labs done last week - to discuss her results [facility] Medical History Neuropathy Pain in both hands Paresthesia of both hands Overweight (BMI 25.0-29.9) Allergic rhinitis Migraine Pure hypercholesterolemia Benign essential hypertension Surgical History Hx of colonoscopy History of removal of retained hardware (~01/2017) History of ankle surgery (~2002) History of lumbosacral spine surgery History of oophorectomy Family History Father Diabetes Hypertension Mother Hypertension Other Mental health problem Social History Housing: House Alcohol intake: current Alcohol intake frequency: holidays/special occasions only Alcohol type: wine Patient Tobacco Use Status: Never used Tobacco e-Cigarette/Vaping Use: Never Used Second Hand Smoke Exposure: No service: No Current occupational status: retired Cognitive needs: No Hearing needs: No Vision needs: Yes (Glasses) Questionnaire PHQ-9 Over the last 2 weeks, how often have you been bothered by any of the following problems? 1. Little interest or pleasure in doing things: not at all 2. Feeling down, depressed, or hopeless: not at all 3. Trouble falling or staying asleep, or sleeping too much: not at all 4. Feeling tired or having little energy: not at all 5. Poor appetite or overeating: not at all 6. Feeling bad about yourself - or that you are a failure or have let yourself or your family down: not at all 7. Trouble concentrating on things, such as reading the newspaper or watching television: not at all 8. Moving or speaking so slowly that other people could have noticed. Or the opposite - being so fidgety or restless that you have been moving around a lot more than usual: not at all 9. Thoughts that you would be better off or of hurting yourself in some way: not at all Total score: 0 Depression Screening Interpretation: Negative Depression Screening Done: Yes Source: Developed by Drs. Donald Be, Pilar Laguerre, Jae Upton and colleagues, with an educational cosmo from [employer]. Thrive Questionnaire Date Thrive assessed: 12/17/23 I am a: Patient What is your living situation today?: I have a steady place to live Within the past 12 months, did the food you bought not last and you didn't have the money to get more?: Never true Within the past 12 months, did you worry whether your food would run out before you got money to buy more?: Never true Do you have trouble paying for medicines?: No Do you have trouble getting transportation to medical appointments?: No Do you have trouble paying your heating and electricity bill?: No Do you have trouble taking care of your child, family member or friend?: No Do you have trouble with day-to-day activities such as bathing, preparing meals, shopping, managing finances, etc.?: No Are you currently unemployed and looking for a job?: No Are you interested in more education?: No Currently or been in a relationship where the following occur: no concerns reported THRIVE Score: 0 AUDIT C Alcohol Use Questionnaire (AUDIT-C) 1. How often do you have a drink containing alcohol?: Monthly or less 2. How many drinks containing alcohol do you have on a typical day when you are drinking?: 1 or 2 Total Score: 1 CECILIA-7 AMB Questionnaire CECILIA-7 Date CECILIA - 7 assessed: 12/17/23 Feeling nervous, anxious, or on edge: 0 = Not at all Not being able to stop or control worryin = Not at all Worrying too much about different things: 0 = Not at all Trouble relaxin = Not at all Being so restless that it is hard to sit still: 0 = Not at all Becoming easily annoyed or irritable: 0 = Not at all Feeling afraid as if something awful might happen: 0 = Not at all Total CECILIA-7 score (0-4 normal; 5-9 mild; 10-14 moderate; 15-21 severe): 0 Source: Developed by Drs. Donald Be, Pilar Laguerre, Jae Upton and colleagues, with an educational cosmo from [employer]. Physical exam (Primary Care) Vital Signs: Last Vital Signs Pulse 54 12/17/23 14:37 BP 126/70 12/17/23 14:37 Pulse Ox 99 12/17/23 14:37 Oxygen Delivery Method Room Air 12/17/23 14:37 BMI result Body Mass Index 28.3 Tobacco/Smoking Status: Tobacco use Status Tobacco use date assessed 12/17/23 12/17/23 14:41 Patient Tobacco Use Status Never used Tobacco 12/17/23 14:41 e-Cigarette/Vaping Use Never Used 12/17/23 14:41 PHQ-9: PHQ-9 Score PHQ-9: Total score 0 12/17/23 15:13 Depression Screening Interpretation: Negative Thrive Assessment: Date of Thrive Assessment Date Thrive assessed 12/17/23 12/17/23 14:41 Currently or been in a relationship where the following occur: no concerns reported Results Reviewed Results Reviewed: Laboratory Tests 12/09/23 13:05 Sodium 142 Potassium 3.8 Creatinine 0.86 Estimated GFR > 60 Fasting Glucose 84 Calcium 10.2 AST 22 ALT 25 Triglycerides 147 Cholesterol 231 H LDL Cholesterol, Calc 147 H HDL Cholesterol 55 Assessment and Plan Assessment & Plan (1) Pure hypercholesterolemia: Code(s): E78.00 - Pure hypercholesterolemia, unspecified Plan: Results of her labs done last week reviewed and discussed with patient - advised that her cholesterol levels have decreased slightly from previous Reinforced?low cholesterol diet Patient initially agreed to try taking Atorvastatin to help lower her numbers at her last visit but changed her mind and did not start on the Rx - would like to continue working on her diet at this time She again had a normal stress test done back in 2017 and currently has no acute cardiac symptoms but was recommended that she start taking cholesterol-lowering medications for primary prevention, which she continues to have reservations doing Will recheck her labs and fasting lipids in 4 months for follow-up (2) Benign essential hypertension: Code(s): I10 - Essential (primary) hypertension Plan: Reinforced? low-sodium diet -? goal is systolic BP of at least 130 to 140 mm or less Continue Atenolol-Chlorthalidone tablet 50-25 mg 1/2 tablet QD (Rx refilled) She is reminded to continue checking her blood pressure regularly (3) Migraine: Code(s): G43.909 - Migraine, unspecified, not intractable, without status migrainosus Qualifiers: Intractability: not intractable Migraine type: without aura Status migrainosus presence: without status migrainosus Qualified Code(s): G43.009 - Migraine without aura, not intractable, without status migrainosus Plan: Stable - patient would like to continue with her current management Reinforced avoidance of migraine triggers Continue Fioricet 2 capsules every 4 to 6 hours PRN (Rx refilled) She is again reminded of the option of prophylactic treatment for migraine if her headaches get worse or progress (4) Allergic rhinitis: Code(s): J30.9 - Allergic rhinitis, unspecified Qualifiers: Allergic rhinitis seasonality: unspecified Allergic rhinitis trigger: unspecified Qualified Code(s): J30.9 - Allergic rhinitis, unspecified Plan: Continue Fluticasone nasal spray QD PRN (5) Left shoulder pain: Code(s): M25.512 - Pain in left shoulder Qualifiers: Chronicity: unspecified Qualified Code(s): M25.512 - Pain in left shoulder Plan: X-rays of the left shoulder done last year in October 2022 came out normal We suspect that she may have some rotator cuff pathology in her left shoulder and she is advised her to check back with orthopedics if her symptoms start flaring up again; she may also need an MRI of the left shoulder for further evaluation if her shoulder starts bothering her again (6) Vitamin D deficiency: Code(s): E55.9 - Vitamin D deficiency, unspecified Plan: Continue Vitamin D3 2000 units QD Will recheck her Vitamin D level in 4 months for follow up (7) Neuropathy: Comment: (+) bilateral median nerve neuropathy - EMG & NCV done in 06/2020 Code(s): G62.9 - Polyneuropathy, unspecified Plan: EMG and NCV of both upper extremities done back in June 2020 revealed (+) moderate bilateral median nerve neuropathy and mild bilateral ulnar nerve neuropathy Will continue with conservative management for now and reserve option of referral to surgery only as a last resort - advised to continue using wrist splints as often as she can to help minimize her symptoms (8) Overweight (BMI 25.0-29.9): Code(s): E66.3 - Overweight Plan: Reinforced diet/exercise as tolerated/lose weight Plan Follow up in 4 months Orders: Orders Complete Blood Count Auto Diff 4 Months D64.9 - Anemia, unspecified Comprehensive [place]. Panel Fast 4 Months E78.00 - Pure hypercholesterolemia, unspecified Vitamin D 25-OH Total 4 Months E55.9 - Vitamin D deficiency, unspecified UA CC w/rflx Micro + Cult 4 Months R30.0 - Dysuria Vitamin B12 and Folate 4 Months E53.8 - Deficiency of other specified B group vitamins TSH reflex Free T4 4 Months E78.00 - Pure hypercholesterolemia, unspecified Lipid Panel 4 Months E78.00 - Pure hypercholesterolemia, unspecified Medications: Refilled ymaawvywep-rsuhmqy-kkiwiein 50-325-40 mg do not exceed 3 doses per 24 hrs 2 caps PO Q4-6H 30 days PRN 180 caps 3RF headache G43.009 - Migraine without aura, not intractable, without status migrainosus atenolol-chlorthalidone 50-25 mg 0.5 tabs PO DAILY 45 tabs 3RF I10 - Essential (primary) hypertension Coding Level of Care Code Est Pt Level 4 (65081) Diagnoses Pure hypercholesterolemia E78.00 Benign essential hypertension I10 Migraine without aura and without status migrainosus, not intractable G43.009 Intractability: not intractable Migraine type: without aura Status migrainosus presence: without status migrainosus Allergic rhinitis, unspecified seasonality, unspecified trigger J30.9 Allergic rhinitis seasonality: unspecified Allergic rhinitis trigger: unspecified Left shoulder pain, unspecified chronicity M25.512 Chronicity: unspecified Vitamin D deficiency E55.9 Neuropathy G62.9 Overweight (BMI 25.0-29.9) E66.3
[2023-12-17 14:37] VITALS: BP 126/70; PULSE 54; O2SAT 99; BMI 28.3
== END 2023-12-17 15:16 | disposition home or self-care (01) ==
PROVIDERS: PCP Internal Medicine; Visit Provider Internal Medicine
DX: E78.00 Pure hypercholesterolemia, unspecified (principal); I10 Essential (primary) hypertension; G43.009 Migraine without aura, not intractable, without status migrainosus; J30.9 Allergic rhinitis, unspecified; M25.512 Pain in left shoulder; E55.9 Vitamin D deficiency, unspecified; G62.9 Polyneuropathy, unspecified; E66.3 Overweight
CPT/HCPCS: 99214

== ENCOUNTER 2024-06-20 11:32 | Outpatient (REF) | payer MEDICARE, SELFPAY ==
[2024-06-20 12:00] LABS: MANUAL DIFF FLAG NO
[2024-06-20 12:26] LABS: Basophils Absolute Auto 0.1 X10*3/uL (0.0-0.2); Basophils Percent Auto 1.3 % (0-2); Eosinophils Absolute Auto 0.2 X10*3/uL (0.0-0.4); Eosinophils Percent Auto 3.6 % (0-4); Lymphocytes Absolute Auto 1.8 X10*3/uL (1.2-4.9); Lymphocytes Percent Auto 37.1 % (20-40); Mean Corpuscular HGB Conc 34.2 g/dl (31.0-35.0); Mean Corpuscular Hemoglobin 30.2 pg (27.0-33.0); Mean Corpuscular Volume 88.4 fL (80.0-98.0); Mean Platelet Volume 12.2 fL (9.4-12.3); Monocytes Absolute Auto 0.3 X10*3/uL (0.1-1.2); Monocytes Percent Auto 6.3 % (2-11); Neutrophils Absolute Auto 2.5 x10*3/uL (2.0-8.3); Neutrophils Percent Auto 51.7 % (45-73); Platelet Count 192 X10*3/uL (160-400); Red Cell Distribution Width 13.1 % (11.0-16.0); White Blood Count 4.8 X10*3/uL (4.8-10.8)
[2024-06-20 12:41] LABS: Appearance Urine Clear; Color Urine Yellow; Glucose Urine UA Negative (Negative); Leukocyte Esterase Urine Negative (Negative); Nitrite Urine Negative (Negative); PH 5.5 (5.0-9.0); Specific Gravity - Urine 1.025 (1.005-1.025); Urine Blood Negative (Negative); Urine Ketones Negative (Negative); Urine Protein Negative (Neg-Trace)
[2024-06-20 13:09] LABS: Alanine Aminotransferase 27 U/L (0-31); Albumin Level 4.1 g/dL (3.5-5.0); Anion Gap 12 (12-20); Aspartate Amino Transferase 28 U/L (5-31); Bilirubin Total 0.8 mg/dL (0.0-1.0); Blood Urea Nitrogen 16 mg/dL (9-16); Calcium 10.2 mg/dL (8.4-10.2); Carbon Dioxide 30 mmol/L (22-29); Chloride 102 mmol/L (96-108); Cholesterol 245 mg/dL (<200); Estimated Glomerular Filt Rate > 60; Glucose Fasting 81 mg/dL (60-99); HDL Cholesterol 59 mg/dL (>40); LDL Cholesterol Calculated 159 mg/dL (<100); Potassium 3.6 mmol/L (3.3-5.1); Sodium 140 mmol/L (135-145); Total Protein 8.2 g/dL (6.5-8.0); Triglycerides 135 mg/dL (<150)
[2024-06-20 13:17] LABS: Alkaline Phosphatase 55 U/L (39-117); TSH reflex Free T4 1.32 uIU/mL (0.32-4.0); Vitamin D 25-OH Total 4.9 ng/mL (>30)
[2024-06-20 13:25] LABS: Folate 6.7 ng/mL (> or = 4.0); Vitamin B12 617 pg/mL (200-900)
== END 2024-06-20 11:33 | disposition home or self-care (01) ==
LOC: HO.LAB 11:32
PROVIDERS: PCP Internal Medicine; Visit Provider Internal Medicine
DX: E78.00 Pure hypercholesterolemia, unspecified (principal); E55.9 Vitamin D deficiency, unspecified; D64.9 Anemia, unspecified; R30.0 Dysuria; E53.8 Deficiency of other specified B group vitamins
CPT/HCPCS: 36415; 80053; 80061; 81003; 82306; 82607; 82746; 84443; 85025

== ENCOUNTER 2024-06-22 11:46 | Outpatient (AMB) | payer MEDICARE, SELFPAY ==
[2024-06-22 11:50] VITALS: BP 120/84; PULSE 63; O2SAT 98; BMI 29.1
--- NOTE | 2024-06-22 11:50 | MHC.PC.OV ---
Vital Signs 06/22/24 11:50 Height 5 ft 3 in Weight 164 lb 2 oz BMI 29.1 BP 120/84 Blood Pressure Location Lt brachial Position Sitting Pulse 63 Pulse Source Pulse Oximeter Pulse Oximetry (%) 98 Oxygen Delivery Method Room Air Intake Visit Reasons: rohini for 4mth f/u Supervisor Webbing Required: No Accompanied by: Self / Same As Patient Allergies No Known Allergies [No Known Allergies*] Allergy (Verified 06/22/24 12:16) Medication List - Last Reconciled 06/22/24 by Bartolo Huffman MD atenolol-chlorthalidone 50-25 mg 0.5 tabs PO DAILY ppskkyapfg-dzxnnvf-fdlulaeo 50-325-40 mg 2 caps PO Q4-6H PRN 30 days cholecalciferol (vitamin D3) 50 mcg PO DAILY 90 days Tobacco use date assessed: 06/22/24 Fall risk assessment: No Falls in past year Last assessed Fall Risk: 06/22/24 Dental Screening Dental Screen Date: 06/22/24 Did you have a dental visit in the last 12 months?: Yes Did you have a dental problem in the last 6 months where you did not have access to dental care?: No Was dental information given to patient?: Patient has dentist HPI rohini for 4mth f/u HPI Details Patient comes in today for her follow up visit States that she feels okay She denies any headaches or dizziness Denies any chest pains, no SOB No nausea/vomiting, no abdominal pain No change in bowel habits noted She had her follow up labs done a couple of days ago - to discuss her results [facility] Medical History Neuropathy Pain in both hands Paresthesia of both hands Overweight (BMI 25.0-29.9) Allergic rhinitis Migraine Pure hypercholesterolemia Benign essential hypertension Surgical History Hx of colonoscopy History of removal of retained hardware (~01/2017) History of ankle surgery (~2002) History of lumbosacral spine surgery History of oophorectomy Family History Father Diabetes Hypertension Mother Hypertension Other Mental health problem Social History Housing: House Alcohol intake: current Alcohol intake frequency: holidays/special occasions only Alcohol type: wine Patient Tobacco Use Status: Never used Tobacco e-Cigarette/Vaping Use: Never Used Second Hand Smoke Exposure: No service: No Current occupational status: retired Cognitive needs: No Hearing needs: No Vision needs: Yes (Glasses) Questionnaire PHQ-9 Over the last 2 weeks, how often have you been bothered by any of the following problems? 1. Little interest or pleasure in doing things: not at all 2. Feeling down, depressed, or hopeless: not at all 3. Trouble falling or staying asleep, or sleeping too much: not at all 4. Feeling tired or having little energy: not at all 5. Poor appetite or overeating: not at all 6. Feeling bad about yourself - or that you are a failure or have let yourself or your family down: not at all 7. Trouble concentrating on things, such as reading the newspaper or watching television: not at all 8. Moving or speaking so slowly that other people could have noticed. Or the opposite - being so fidgety or restless that you have been moving around a lot more than usual: not at all 9. Thoughts that you would be better off or of hurting yourself in some way: not at all Total score: 0 Depression Screening Interpretation: Negative Depression Screening Done: Yes 93778 - PHQ-9 Billing: Yes Source: Developed by Drs. Donald Be, Pilar Laguerre, Jae Upton and colleagues, with an educational cosmo from [employer]. Thrive Questionnaire Date Thrive assessed: 06/22/24 I am a: Patient What is your living situation today?: I have a steady place to live Within the past 12 months, did the food you bought not last and you didn't have the money to get more?: Never true Within the past 12 months, did you worry whether your food would run out before you got money to buy more?: Never true Do you have trouble paying for medicines?: No Do you have trouble getting transportation to medical appointments?: No Do you have trouble paying your heating and electricity bill?: No Do you have trouble taking care of your child, family member or friend?: No Do you have trouble with day-to-day activities such as bathing, preparing meals, shopping, managing finances, etc.?: No Are you currently unemployed and looking for a job?: No Are you interested in more education?: No Please select the resources that you would like help with: None Currently or been in a relationship where the following occur: No concerns reported THRIVE Score: 0 AUDIT C Alcohol Use Questionnaire (AUDIT-C) 1. How often do you have a drink containing alcohol?: Monthly or less 2. How many drinks containing alcohol do you have on a typical day when you are drinking?: 1 or 2 Total Score: 1 Score Reviewed/Action Taken: Yes CECILIA-7 AMB Questionnaire CECILIA-7 Date CECILIA - 7 assessed: 06/22/24 Feeling nervous, anxious, or on edge: 0 = Not at all Not being able to stop or control worryin = Not at all Worrying too much about different things: 0 = Not at all Trouble relaxin = Not at all Being so restless that it is hard to sit still: 0 = Not at all Becoming easily annoyed or irritable: 0 = Not at all Feeling afraid as if something awful might happen: 0 = Not at all Total CECILIA-7 score (0-4 normal; 5-9 mild; 10-14 moderate; 15-21 severe): 0 Source: Developed by Drs. Donald Be, Pilar Laguerre, Jae Upton and colleagues, with an educational cosmo from [employer]. Review of Systems Const Denies chills, Denies fatigue, Denies fever(s) and Denies headache(s) ENT Denies dysphagia, Denies dizziness, Denies otalgia, Denies headache(s), Denies neck pain, Denies odynophagia and Denies sore throat Card Denies chest pain, Denies palpitations and Denies dyspnea Resp Denies chest congestion, Denies cough and Denies dyspnea GI Denies abdominal pain, Denies constipation, Denies dysphagia, Denies heartburn, Denies diarrhea, Denies nausea, Denies odynophagia and Denies vomiting Denies difficulty voiding, Denies nocturia, Denies dysuria and Denies urinary urgency Musc Denies back pain, Reports arthralgias (over both wrists; on and off in the left shoulder), Denies neck pain, Reports numbness (on and off in both hands) and Reports tingling (on and off in both hands) Skin/Breast Denies rash Neuro Denies dizziness, Denies headache(s), Reports numbness (on and off in both hands) and Reports tingling (on and off in both hands) Endo Denies fatigue and Denies palpitations Physical exam (Primary Care) Vital Signs: Last Vital Signs Pulse 63 06/22/24 11:50 BP 120/84 06/22/24 11:50 Pulse Ox 98 06/22/24 11:50 Oxygen Delivery Method Room Air 06/22/24 11:50 BMI result Body Mass Index 29.1 Tobacco/Smoking Status: Tobacco use Status Tobacco use date assessed 06/22/24 06/22/24 11:51 Patient Tobacco Use Status Never used Tobacco 06/22/24 11:51 e-Cigarette/Vaping Use Never Used 06/22/24 11:51 PHQ-9: PHQ-9 Score PHQ-9: Total score 0 06/22/24 12:17 Depression Screening Interpretation: Negative Thrive Assessment: Date of Thrive Assessment Date Thrive assessed 06/22/24 06/22/24 11:51 Currently or been in a relationship where the following occur: No concerns reported Const General: no acute distress and alert HENMT Ears: TM's normal bilaterally and EAC's normal Throat: Yes posterior oropharynx normal and Yes tonsils normal (no TP congestion noted) Neck Neck: Yes no lymphadenopathy and Yes supple Thyroid: Thyroid normal Resp Auscultation: clear to auscultation bilaterally, no crackles, no rales and no wheezes Cardio Rate: regular rate Rhythm: regular rhythm Heart sounds: no murmurs GI Palpation (GI): Soft to palpation and nontender Auscultation: normal bowel sounds General: Yes no CVA tenderness Back/Spine/Pelvis Back: no CVA tenderness Thoracic/Lumbar Spine: No lumbar spinal tenderness Skin Rashes: no rashes Extrem General: Yes no clubbing, cyanosis or edema Left upper extremity: shoulder/upper arm Details: tenderness (mild) Location: of the A-C joint and normal ROM Results Reviewed Results Reviewed: Laboratory Tests 06/20/24 06/20/24 11:59 12:00 WBC 4.8 Hgb 13.0 Hct 38.0 Plt Count 192 Sodium 140 Potassium 3.6 Creatinine 0.89 Estimated GFR > 60 Fasting Glucose 81 Calcium 10.2 AST 28 ALT 27 Triglycerides 135 Cholesterol 245 H LDL Cholesterol, Calc 159 H HDL Cholesterol 59 Vitamin B12 617 25-OH Vitamin D Total 4.9 L TSH 1.32 Ur Specific Dewy Rose 1.025 Urine Protein Negative Urine Glucose (UA) Negative Urine Blood Negative Urine Nitrite Negative Ur Leukocyte Esterase Negative Coding Level of Care Code Est Pt Level 4 (65233) Diagnoses Pure hypercholesterolemia E78.00 Benign essential hypertension I10 Migraine without aura and without status migrainosus, not intractable G43.009 Migraine type: without aura Status migrainosus presence: without status migrainosus Intractability: not intractable Allergic rhinitis, unspecified seasonality, unspecified trigger J30.9 Allergic rhinitis trigger: unspecified Allergic rhinitis seasonality: unspecified Vitamin D deficiency E55.9 Neuropathy G62.9 Left shoulder pain, unspecified chronicity M25.512 Chronicity: unspecified Overweight (BMI 25.0-29.9) E66.3 Additional Codes PHQ-9 - 71895 - PHQ-9 Billing: Yes ([id number]) Assessment & Plan Assessment & Plan (1) Pure hypercholesterolemia: Code(s): E78.00 - Pure hypercholesterolemia, unspecified Category: Medical Plan: Results of her labs done a couple of days ago reviewed and discussed with patient - she is advised that her cholesterol levels, especially her LDL cholesterol, has increased again slightly from previous Reinforced low cholesterol diet - patient still wishes to continue trying to get her cholesterol levels down/lower without having to take any medications She was prescribed Atorvastatin in the past but she did not start taking the Rx She again had a normal stress test done back in 2017 and currently has no acute cardiac symptoms although she was recommended to start taking cholesterol-lowering medications for primary prevention at the time - she continues to have her reservations in doing so Will have her recheck her labs and fasting lipids in 4 months for follow up (2) Benign essential hypertension: Code(s): I10 - Essential (primary) hypertension Category: Medical Plan: Reinforced? low-sodium diet -? goal is systolic BP of at least 130 to 140 mm or less Continue Atenolol-Chlorthalidone tablet 50-25 mg 1/2 tablet QD She is reminded to continue checking her blood pressure regularly (3) Migraine: Code(s): G43.909 - Migraine, unspecified, not intractable, without status migrainosus Category: Medical Qualifiers: Migraine type: without aura Status migrainosus presence: without status migrainosus Intractability: not intractable Qualified Code(s): G43.009 - Migraine without aura, not intractable, without status migrainosus Plan: Stable - patient would like to continue with her current management Reinforced avoidance of migraine triggers Continue Fioricet 2 capsules every 4 to 6 hours PRN She is again reminded of the option of prophylactic treatment for migraine if her headaches get worse or progress (4) Allergic rhinitis: Code(s): J30.9 - Allergic rhinitis, unspecified Category: Medical Qualifiers: Allergic rhinitis trigger: unspecified Allergic rhinitis seasonality: unspecified Qualified Code(s): J30.9 - Allergic rhinitis, unspecified Plan: Continue Fluticasone 50 mcg nasal spray QD PRN (5) Vitamin D deficiency: Code(s): E55.9 - Vitamin D deficiency, unspecified Category: Medical Plan: Patient is advised that her Vitamin D level has inexplicably continue to drop lower despite her taking her Vitamin D3 supplements daily Have advised patient now to increase her Vitamin D3 to 4000 units (100 mcg) QD and to continue on this at least until her next follow up appt Will have her recheck her Vitamin D level in 4 months for follow up (6) Neuropathy: Comment: (+) bilateral median nerve neuropathy - EMG & NCV done in 06/2020 Code(s): G62.9 - Polyneuropathy, unspecified Category: Medical Plan: EMG and NCV of both upper extremities done back in June 2020 revealed (+) moderate bilateral median nerve neuropathy and mild bilateral ulnar nerve neuropathy We will continue with conservative management for now and reserve option of referral to surgery only as a last resort - patient has been advised to continue using her wrist splints as often as she can to help minimize her symptoms (7) Left shoulder pain: Code(s): M25.512 - Pain in left shoulder Category: Medical Qualifiers: Chronicity: unspecified Qualified Code(s): M25.512 - Pain in left shoulder Plan: X-rays of the left shoulder done last year in October 2022 came out normal We suspected then that she may have some rotator cuff pathology in her left shoulder and she is advised her to check back with orthopedics if her symptoms start flaring up again May need to send her for an MRI of the left shoulder for further evaluation if her shoulder symptoms progress (8) Overweight (BMI 25.0-29.9): Code(s): E66.3 - Overweight Category: Medical Plan: Reinforced diet/exercise as tolerated/lose weight Plan Follow up in 4 months Orders: Orders Comprehensive [place]. Panel Fast 4 Months E78.00 - Pure hypercholesterolemia, unspecified Lipid Panel 4 Months E78.00 - Pure hypercholesterolemia, unspecified Vitamin D 25-OH Total 4 Months E55.9 - Vitamin D deficiency, unspecified Medications: Changed From cholecalciferol (vitamin D3) 50 mcg PO DAILY 90 days 90 caps 3RF E55.9 - Vitamin D deficiency, unspecified To cholecalciferol (vitamin D3) 100 mcg (2 x 50 mcg (2,000 unit)) PO DAILY 90 days 180 caps 3RF E55.9 - Vitamin D deficiency, unspecified
== END 2024-06-22 12:22 | disposition home or self-care (01) ==
LOC: HO.HMCH 11:46
PROVIDERS: PCP Internal Medicine; Visit Provider Internal Medicine
DX: E78.00 Pure hypercholesterolemia, unspecified (principal); I10 Essential (primary) hypertension; G43.009 Migraine without aura, not intractable, without status migrainosus; J30.9 Allergic rhinitis, unspecified; E55.9 Vitamin D deficiency, unspecified; G62.9 Polyneuropathy, unspecified; M25.512 Pain in left shoulder; E66.3 Overweight

== ENCOUNTER → 2024-06-22 11:46 | Outpatient (BNVA) | payer MEDICARE, SELFPAY | PROVIDERS: PCP Internal Medicine; Visit Provider Internal Medicine | DX: E78.00 Pure hypercholesterolemia, unspecified (principal); I10 Essential (primary) hypertension; G43.009 Migraine without aura, not intractable, without status migrainosus; J30.9 Allergic rhinitis, unspecified; E55.9 Vitamin D deficiency, unspecified; G62.9 Polyneuropathy, unspecified; M25.512 Pain in left shoulder; E66.3 Overweight | CPT/HCPCS: 96127; 99212 ==

== ENCOUNTER 2024-10-17 08:41 | Outpatient (REF) | payer MEDICARE, SELFPAY ==
[2024-10-17 10:04] LABS: Alanine Aminotransferase 29 U/L (0-31); Albumin Level 3.9 g/dL (3.5-5.0); Alkaline Phosphatase 59 U/L (39-117); Anion Gap 9 (12-20); Aspartate Amino Transferase 28 U/L (5-31); Bilirubin Total 0.5 mg/dL (0.0-1.0); Blood Urea Nitrogen 15 mg/dL (9-16); Calcium 9.5 mg/dL (8.4-10.2); Carbon Dioxide 29 mmol/L (22-29); Chloride 107 mmol/L (96-108); Cholesterol 249 mg/dL (<200); Estimated Glomerular Filt Rate 57; Glucose Fasting 88 mg/dL (60-99); HDL Cholesterol 55 mg/dL (>40); LDL Cholesterol Calculated 172 mg/dL (<100); Sodium 141 mmol/L (135-145); Total Protein 8.7 g/dL (6.5-8.0); Triglycerides 113 mg/dL (<150)
[2024-10-17 10:22] LABS: Vitamin D 25-OH Total 17.2 ng/mL (>30)
== END 2024-10-17 08:42 | disposition home or self-care (01) ==
LOC: HO.LAB 08:41
PROVIDERS: PCP Internal Medicine; Visit Provider Internal Medicine
DX: E78.00 Pure hypercholesterolemia, unspecified (principal); E55.9 Vitamin D deficiency, unspecified
CPT/HCPCS: 36415; 80053; 80061; 82306

== ENCOUNTER 2024-10-23 13:54 | Outpatient (AMB) | payer MEDICARE, SELFPAY ==
[2024-10-23 13:55] VITALS: BP 118/82; PULSE 68; O2SAT 98; BMI 29.7
--- NOTE | 2024-10-23 13:55 | A.OFFPC_ITS ---
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 Accompanied by: Self / Same As Patient Allergies No Known Allergies [No Known Allergies*] Allergy (Verified 10/25/24 20:18) Medication List - Last Reconciled 10/23/24 by KATHLEEN Campbell atenolol-chlorthalidone 50-25 mg 0.5 tabs PO DAILY dukbdtkbil-nvzwpdi-rqgqgyhd 50-325-40 mg 2 caps PO Q4-6H PRN 30 days cholecalciferol (vitamin D3) 100 mcg (2 x 50 mcg (2,000 unit)) PO DAILY 90 days Tobacco use date assessed: 10/23/24 Fall risk assessment: No Falls in past year Last assessed Fall Risk: 10/23/24 Dental Screening Dental Screen Date: 10/23/24 Did you have a dental visit in the last 12 months?: Yes Did you have a dental problem in the last 6 months where you did not have access to dental care?: No Was dental information given to patient?: Patient has dentist HPI hypedlipidemia HPI Details The patient is a 73-year-old female presenting follow up visit for high cholesterol Recent labs reviewed with the patient The patient wants to keep working on her cholesterol naturally, by losing weight Discussed with patient that she could do both Given that her ASCVD risk in 34.9% The patient reports that she knows that she could lose the weight because she done it before Discuss the risk of stroke or heart attack to the patient The patient denies sob, chest pain, heart palpitation, dizziness or lightheadedness PFSH Medical History Neuropathy Pain in both hands Paresthesia of both hands Overweight (BMI 25.0-29.9) Allergic rhinitis Migraine Pure hypercholesterolemia Benign essential hypertension Surgical History Hx of colonoscopy History of removal of retained hardware (~01/2017) History of ankle surgery (~2002) History of lumbosacral spine surgery History of oophorectomy Family History Father Diabetes Hypertension Mother Hypertension Other Mental health problem Social History Housing: House Alcohol intake: current Alcohol intake frequency: holidays/special occasions only Alcohol type: wine Patient Tobacco Use Status: Never used Tobacco e-Cigarette/Vaping Use: Never Used Second Hand Smoke Exposure: No service: No Current occupational status: retired Cognitive needs: No Hearing needs: No Vision needs: Yes (Glasses) Questionnaire PHQ-9 Over the last 2 weeks, how often have you been bothered by any of the following problems? 1. Little interest or pleasure in doing things: not at all 2. Feeling down, depressed, or hopeless: not at all 3. Trouble falling or staying asleep, or sleeping too much: not at all 4. Feeling tired or having little energy: not at all 5. Poor appetite or overeating: not at all 6. Feeling bad about yourself - or that you are a failure or have let yourself or your family down: not at all 7. Trouble concentrating on things, such as reading the newspaper or watching television: not at all 8. Moving or speaking so slowly that other people could have noticed. Or the opposite - being so fidgety or restless that you have been moving around a lot more than usual: not at all 9. Thoughts that you would be better off or of hurting yourself in some way: not at all Total score: 0 Depression Screening Interpretation: Negative Depression Screening Done: Yes 06329 - PHQ-9 Billing: Yes Source: Developed by Drs. Donald Be, Pilar Laguerre, Jae Upton and colleagues, with an educational cosmo from [employer]. Thrive Questionnaire Date Thrive assessed: 10/23/24 I am a: Patient What is your living situation today?: I have a steady place to live Within the past 12 months, did the food you bought not last and you didn't have the money to get more?: Never true Within the past 12 months, did you worry whether your food would run out before you got money to buy more?: Never true Do you have trouble paying for medicines?: No Do you have trouble getting transportation to medical appointments?: No Do you have trouble paying your heating and electricity bill?: No Do you have trouble taking care of your child, family member or friend?: No Do you have trouble with day-to-day activities such as bathing, preparing meals, shopping, managing finances, etc.?: No Are you currently unemployed and looking for a job?: No Are you interested in more education?: No Please select the resources that you would like help with: None Currently or been in a relationship where the following occur: No concerns reported THRIVE Score: 0 AUDIT C Alcohol Use Questionnaire (AUDIT-C) 1. How often do you have a drink containing alcohol?: Monthly or less 2. How many drinks containing alcohol do you have on a typical day when you are drinking?: 1 or 2 Total Score: 1 Score Reviewed/Action Taken: Yes CECILIA-7 AMB Questionnaire CECILIA-7 Date CECILIA - 7 assessed: 10/23/24 Feeling nervous, anxious, or on edge: 0 = Not at all Not being able to stop or control worryin = Not at all Worrying too much about different things: 0 = Not at all Trouble relaxin = Not at all Being so restless that it is hard to sit still: 0 = Not at all Becoming easily annoyed or irritable: 0 = Not at all Feeling afraid as if something awful might happen: 0 = Not at all Total CECILIA-7 score (0-4 normal; 5-9 mild; 10-14 moderate; 15-21 severe): 0 Source: Developed by Drs. Donald Be, Pilar Laguerre, Jae Upton and colleagues, with an educational cosmo from [employer]. CECILIA-7 Assessment Billing CECILIA-7 Assessment Tool: CECILIA-7 Assessment 96297 Review of Systems Const Denies headache(s) Eyes Denies loss of vision ENT Denies vertigo, Denies dizziness, Denies headache(s) and Denies sore throat Card Denies chest pain, Denies leg edema and Denies lightheadedness Resp Denies cough, Denies hemoptysis and Denies wheezing GI Denies abdominal pain, Denies melena, Denies constipation, Denies diarrhea and Denies vomiting Denies urinary frequency, Denies dysuria and Denies urinary urgency Musc Reports arthralgias (left shoulder chronic), Denies joint swelling, Reports numbness (bilateral hands intermittently) and Reports tingling (bilateral hands intermittently) Neuro Denies Abnormal speech present, Denies behavioral changes, Denies vertigo, Denies dizziness, Denies headache(s), Denies loss of vision, Denies memory loss, Reports numbness (bilateral hands intermittently) and Reports tingling (bilateral hands intermittently) Psych Denies anxiety, Denies behavioral changes, Denies depression, Denies memory loss and Denies panic attacks Jin/Lymph Denies easy bleeding and Denies easy bruising Aller/Immun Denies wheezing Physical exam (Primary Care) Vital Signs: Last Vital Signs Pulse 68 10/23/24 13:55 BP 118/82 10/23/24 13:55 Pulse Ox 98 10/23/24 13:55 Oxygen Delivery Method Room Air 10/23/24 13:55 BMI result Body Mass Index 29.7 Tobacco/Smoking Status: Tobacco use Status Tobacco use date assessed 10/23/24 10/23/24 14:00 Patient Tobacco Use Status Never used Tobacco 10/23/24 14:00 e-Cigarette/Vaping Use Never Used 10/23/24 14:00 PHQ-9: PHQ-9 Score PHQ-9: Total score 0 10/23/24 14:34 Depression Screening Interpretation: Negative Thrive Assessment: Date of Thrive Assessment Date Thrive assessed 10/23/24 10/23/24 14:00 Currently or been in a relationship where the following occur: No concerns reported Const General: healthy appearing, no acute distress, alert and awake Nutritional Appearance: well nourished Orientation/consciousness: oriented to person, oriented to place and oriented to time [facility] Ears: TM's normal bilaterally General nose exam: Normal nasal mucous membranes and turbinates present Eyes Conjunctivae: conjunctivae normal Sclerae: sclerae normal Pupils: Equal, round and reactive pupils present Neck Neck: Yes no lymphadenopathy and Yes no JVD Thyroid: Thyroid normal Carotids: no bruits Resp Effort & Inspection: normal respiratory effort and not tachypneic Auscultation: no crackles, no rales, no rhonchi and no wheezes Cardio Rate: regular rate Rhythm: regular rhythm Heart sounds: no murmurs and normal S1 and S2 GI Palpation (GI): Soft to palpation, nontender, no hepatomegaly and no splenomegaly Auscultation: normal bowel sounds Skin General skin exam: no rashes or lesions noted and dry skin Neuro General: oriented to person, oriented to place and oriented to time Cranial nerves: Yes Equal, round and reactive pupils present Speech: No Abnormal speech present Gait exam (Neuro): Normal gait present Motor exam (neuro): no tremor noted Extrem Right upper extremity: full ROM Left upper extremity: full ROM Right lower extremity: full ROM; no edema Left lower extremity: full ROM; no edema Psych Mental Status: mental status grossly normal Speech and movement: Normal speech and movement present Affect: normal affect Attitude: cooperative Thought process: Normal thought process present Results Reviewed Results Reviewed: Laboratory Tests 10/17/24 10/24/24 08:58 08:20 WBC 7.0 RBC 4.23 Hgb 12.8 Hct 36.8 L Plt Count 196 Sodium 139 Potassium 4.0 Chloride 106 Carbon Dioxide 27 Anion Gap 10 L BUN 23 H Creatinine 1.05 Estim Creat Clear Calc 47.9 Estimated GFR 52 Random Glucose 87 Calcium 9.8 AST 24 ALT 28 Alkaline Phosphatase 64 Triglycerides 113 Cholesterol 249 H LDL Cholesterol, Calc 172 H HDL Cholesterol 55 25-OH Vitamin D Total 17.2 L Coding Level of Care Code Est Pt Level 4 (07812) Diagnoses Benign essential hypertension I10 Pure hypercholesterolemia E78.00 Migraine without aura and without status migrainosus, not intractable G43.009 Migraine type: without aura Status migrainosus presence: without status migrainosus Intractability: not intractable Overweight (BMI 25.0-29.9) E66.3 Gastroesophageal reflux disease, unspecified whether esophagitis present K21.9 Esophagitis presence: esophagitis presence not specified Vitamin D deficiency E55.9 Painful arc syndrome of left shoulder M75.102 Additional Codes PHQ-9 - 06328 - PHQ-9 Billing: Yes ([id number]) CECILIA-7 Assessment Billing - CECILIA-7 Assessment Tool: CECILIA-7 Assessment 52602 ([id number]) Time Spent (min) 36 Assessment & Plan Assessment & Plan (1) Benign essential hypertension: Code(s): I10 - Essential (primary) hypertension Category: Medical Plan: reinforced lower sodium diet Continue atenolol-chlorthalidone 50-25 mg daily (2) Pure hypercholesterolemia: Code(s): E78.00 - Pure hypercholesterolemia, unspecified Category: Medical Plan: ASCVD risk in 34.9% Discussed with patient about starting statin; the patient declined The patient reports that she knows that she could lose the weight because she done it before Discuss the risk of stroke or heart attack to the patient (3) Migraine: Code(s): G43.909 - Migraine, unspecified, not intractable, without status migrainosus Category: Medical Qualifiers: Migraine type: without aura Status migrainosus presence: without status migrainosus Intractability: not intractable Qualified Code(s): G43.009 - Migraine without aura, not intractable, without status migrainosus Plan: Avoid trigger Continue Tzbdzrttod-dvjdsuy-kpzlkdlm 50-325-40 mg 2 caps Q4-Q6H PRN (4) Overweight (BMI 25.0-29.9): Code(s): E66.3 - Overweight Category: Medical Plan: Diet/exercise discussed in detail Encouraged to exercise for at least 30 minutes a day/5 days a week Healthy eating discussed. Encouraged to eat fruits/vegetables, protein- fish/baked chicken, and to avoid salty/fried foods, sweets, caffeine and carbohydrates. Encouraged to increase water intake 6-8 glasses a day (5) GERD (gastroesophageal reflux disease): Code(s): K21.9 - Gastro-esophageal reflux disease without esophagitis Category: Medical Qualifiers: Esophagitis presence: esophagitis presence not specified Qualified Code(s): K21.9 - Gastro-esophageal reflux disease without esophagitis Plan: Reinforced dietary restriction Refrain from eating close to bedtime (6) Vitamin D deficiency: Code(s): E55.9 - Vitamin D deficiency, unspecified Category: Medical Plan: Continue vitamin-D3 100mcg daily (7) Painful arc syndrome of left shoulder: Code(s): M75.102 - Unspecified rotator cuff tear or rupture of left shoulder, not specified as traumatic Category: Medical Plan: Continue lidocaine patch 4% and oxycodone 5 mg Q 8 hours p.r.n. Plan Patient to follow up in 4 months. Repeat labs before appointment Orders: Orders Vitamin D 25-OH Total 4 Months E55.9 - Vitamin D deficiency, unspecified, E78.00 - Pure hypercholesterolemia, unspecified, I10 - Essential (primary) hypertension, K21.9 - Gastro-esophageal reflux disease without esophagitis Lipid Panel 4 Months E55.9 - Vitamin D deficiency, unspecified, E78.00 - Pure hypercholesterolemia, unspecified, I10 - Essential (primary) hypertension, K21.9 - Gastro-esophageal reflux disease without esophagitis Comprehensive Success. Panel Fast 4 Months E55.9 - Vitamin D deficiency, unspecified, E78.00 - Pure hypercholesterolemia, unspecified, I10 - Essential (primary) hypertension, K21.9 - Gastro-esophageal reflux disease without esophagitis
== END 2024-10-23 14:39 | disposition home or self-care (01) ==
PROVIDERS: PCP Internal Medicine
DX: I10 Essential (primary) hypertension (principal); E78.00 Pure hypercholesterolemia, unspecified; G43.009 Migraine without aura, not intractable, without status migrainosus; E66.3 Overweight; K21.9 Gastro-esophageal reflux disease without esophagitis; E55.9 Vitamin D deficiency, unspecified; M75.102 Unspecified rotator cuff tear or rupture of left shoulder, not specified as traumatic

== ENCOUNTER → 2024-10-23 13:54 | Outpatient (BNVA) | payer MEDICARE, SELFPAY | PROVIDERS: PCP Internal Medicine | DX: I10 Essential (primary) hypertension (principal); E78.00 Pure hypercholesterolemia, unspecified; G43.009 Migraine without aura, not intractable, without status migrainosus; E66.3 Overweight; Z68.29 Body mass index [BMI] 29.0-29.9, adult; K21.9 Gastro-esophageal reflux disease without esophagitis; M75.102 Unspecified rotator cuff tear or rupture of left shoulder, not specified as traumatic; Z71.3 Dietary counseling and surveillance | CPT/HCPCS: 96127; 99212 ==

== ENCOUNTER 2024-10-24 07:56 | Emergency (ER) | payer MEDICARE, SELFPAY ==
--- NOTE | ~2024-10-24 | CT_ITS ---
EXAMINATION: CTA NECK WITH CONTRAST (STROKE) CTA BRAIN WITH CONTRAST (STROKE) CLINICAL INFORMATION: Suspect acute stroke. Assess for major vessel occlusion. Please call report. COMPARISON: No priors. Correlated to CT brain dated August 15, 2009. TECHNIQUE: CTA of the head and neck was performed in the axial plane from the mediastinum to the skull vertex using 70 mL Omnipaque 350 intravenous contrast. Additional reformatted multiplanar images including maximum intensity projection MIP images are generated on the CT workstation. This CT examination was performed using dose optimization techniques as appropriate, variously including the following: *Automated exposure control *Adjustment of mA and/or kV according to patient size (this includes techniques or standardized protocols for targeted exams where dose is matched to indication/reason for exam; i.e. extremities or head) *Use of iterative reconstruction technique. DLP: 1372 mGy centimeter. FINDINGS: The degree of stenosis determined by criteria similar to NASCET. Brain: No acute intracranial hemorrhage, mass effect, midline shift, hydrocephalus or herniation. Escalera-white matter differentiation is normal. Posterior cranial fossa contents demonstrated no acute intracranial hemorrhage or mass effect. Sellar/suprasellar region demonstrated no gross masses. Craniocervical junction is intact and normal. No air-fluid levels in the paranasal sinuses. Tympanic cavities and mastoid cells are aerated. Chest CTA: The thoracic aortic arch is patent without focal stenosis or intimal flap or abnormal diameter. Neck CTA: Right CCA: Normal patency. No focal stenosis. No intimal flap. Right ICA: Normal patency. No focal stenosis. No intimal flap. Left CCA: Normal patency. No focal stenosis. No intimal flap. Left ICA: Normal patency. No focal stenosis. No intimal flap. V1/V2 segments of the vertebral arteries: Normal patency. No focal stenosis. No intimal flap. Codominant vertebral arteries. Both orientating from the subclavian arteries. Brain CTA: Anterior cerebral circulation: ICAs: Calcified plaques in the cavernous supraclinoid segments. Normal patency. No focal stenosis. No abrupt cut off. MCA's: Normal patency. No focal stenosis. No abrupt cut off. Bifurcation/trifurcation are patent without contour irregularity. ACAs: Normal patency. No focal stenosis. No abrupt cut off. Anterior communicating artery is not present. Posterior communicating arteries are not present. Ophthalmic arteries are patent. Posterior cerebral circulation: V3/V4 segments: Normal patency. No focal stenosis. No intimal flap. Right posterior inferior cerebellar artery is patent. Left posterior inferior cerebellar arteries patent. Basilar artery: Normal patency. No focal stenosis. No intimal flap. Superior cerebellar arteries are patent. fire production operator: No focal stenosis. No abrupt cut off. Ancillary findings: The main cerebral venous sinuses are patent. There is a 1 cm low-density nodule left thyroid lobe. Subtle pulmonary mosaic pattern. Spondylosis C4-5 and C5-[address]/CT angio head neck IMPRESSION: No high degree stenosis or dissection. No gross plaques, carotid bulbs nor proximal ICAs. No main cerebral artery occlusion or embolus. 1 cm low density nodule, left thyroid lobe. This critical test result is communicated to: Ijeoma Lozano, physician assistant director of nursing in the emergency department at 11:40 AM on October 24, 2024. Electronically signed by: Yury Doe MD 10/24/2024 11:49 AM EDT
[2024-10-24 08:01] VITALS: BP 142/70; PULSE 63; RESP 16; TEMP 36.4; O2SAT 100; BMI 29.7
--- NOTE | 2024-10-24 08:06 | ECG_ITS ---
Test Reason : left sided shoulder pain Blood Pressure : */* mmHG Vent. Rate : 54 BPM Atrial Rate : 54 BPM P-R Int : 180 ms QRS Dur : 88 ms QT Int : 428 ms P-R-T Axes : 48 26 58 degrees QTcB Int : 405 ms Sinus bradycardia Otherwise normal ECG When compared with ECG of 30-Nov-2020 15:15, No significant change was found Referred By: Generic ED Physician Electronically Signed By: MARIA EUGENIA ALEXANDRE
[2024-10-24 08:31] LABS: Basophils Absolute Auto 0.1 X10*3/uL (0.0-0.2); Basophils Percent Auto 0.9 % (0-2); Eosinophils Absolute Auto 0.3 X10*3/uL (0.0-0.4); Eosinophils Percent Auto 4.3 % (0-4); Hematocrit 36.8 % (37.0-47.0); Hemoglobin 12.8 g/dl (12.0-16.0); Imm Gran Abs Auto 0.01 X10*3/uL (0.00-0.03); Imm Gran Pct Auto 0.1 % (0.0-0.4); Lymphocytes Absolute Auto 1.8 X10*3/uL (1.2-4.9); Lymphocytes Percent Auto 26.4 % (20-40); MANUAL DIFF FLAG NO; Mean Corpuscular HGB Conc 34.8 g/dl (31.0-35.0); Mean Corpuscular Hemoglobin 30.3 pg (27.0-33.0); Monocytes Absolute Auto 0.5 X10*3/uL (0.1-1.2); Monocytes Percent Auto 7.2 % (2-11); Neutrophils Absolute Auto 4.3 x10*3/uL (2.0-8.3); Neutrophils Percent Auto 61.1 % (45-73); Platelet Count 196 X10*3/uL (160-400); Red Blood Count 4.23 X10*6/uL (4.20-5.50); Red Cell Distribution Width 13.2 % (11.0-16.0)
[2024-10-24 09:00] LABS: Alanine Aminotransferase 28 U/L (0-31); Albumin Level 3.9 g/dL (3.5-5.0); Alkaline Phosphatase 64 U/L (39-117); Anion Gap 10 (12-20); Aspartate Amino Transferase 24 U/L (5-31); Bilirubin Total 0.4 mg/dL (0.0-1.0); Blood Urea Nitrogen 23 mg/dL (9-16); Calcium 9.8 mg/dL (8.4-10.2); Carbon Dioxide 27 mmol/L (22-29); Chloride 106 mmol/L (96-108); Creatinine Clr Calc Pharmacy 47.9; Estimated Glomerular Filt Rate 52; Glucose Random 87 mg/dL (60-115); Sodium 139 mmol/L (135-145); Total Protein 8.6 g/dL (6.5-8.0)
--- NOTE | 2024-10-24 09:10 | ED_ITS ---
HPI - Neuro Symptoms/Deficit General Chief Complaint: Neuro Symptoms/Deficit Stated Complaint: Facial pain L side Time Seen by Provider: 10/24/24 09:10 Source: patient, RN notes reviewed and mineral surveyor Mode of arrival: ambulatory Limitations: no limitations History of Present Illness ED Provider: Ijeoma Lozano PA-C HPI Narrative: This is a 73-year-old female, with a history of hypertension, hypercholesterolemia, GERD, neuropathy, who presents emergency department with complaints of left-sided facial numbness and left-sided neck pain which started at 8:00 p.m. last night. Patient states that while she was sitting down she developed this pain. She states that since she has felt the pain, it has been constant since. She states that pain worsens with movement of her neck. She states that she has a history of similar symptoms in the past, approximately 10 years ago she was told that she had a muscle spasm. She states that the pain does radiate into the left side of her face, and she reports associated numbness and tingling on the left side of her face. She reports slight headache. She does report that she had a migraine about 1 week ago, which resolved after taking Fioricet. Denies any dizziness, blurred vision, double vision, chest pain, shortness of breath, abdominal pain, nausea, vomiting or diarrhea. She took Aleve last night which provided her with some relief. No other complaints or concerns at this time. Onset (ago): day(s) Timing confirmed by: spouse Location: left face History of same: Yes Severity: moderate Quality: tingling Relieving factors: rest Exacerbating factors: other (Movement) Context: gradual onset On Anticoagulants: No Associated symptoms: headaches Treatments Prior to Arrival: none Related Data Previous Rx's ?Medication ?Instructions ?Recorded cholecalciferol (vitamin D3) 50 100 mcg (2 x 50 mcg (2,000 unit)) 06/22/24 mcg (2,000 unit) capsule PO DAILY 90 days #180 caps atenolol 50 mg-chlorthalidone 25 0.5 tab PO DAILY #45 tabs 06/23/24 mg tablet zklujhvdtb-gyutwoy-szsphyms 50 2 cap PO Q4-6H PRN headache 30 07/06/24 mg-325 mg-40 mg capsule days #180 caps lidocaine 4 % topical patch 1 patch topical DAILY PRN pain #30 10/24/24 (Aspercreme (lidocaine)) ea oxycodone 5 mg tablet 5 mg PO Q8H PRN severe pain (scale 10/24/24 score 7-10) #5 tabs prednisone 20 mg tablet 20 mg PO DAILY 5 days #5 tabs 10/24/24 Allergies Allergy/AdvReac Type Severity Reaction Status Date / Time No Known Allergies Allergy Verified 10/24/24 08:05 [No Known Allergies*] Review of Systems 2 Review of Systems: Yes all other systems are reviewed and are negative Constitutional: Constitutional: Reports as per HPI [facility] Past Medical History Medical History Neuropathy Pain in both hands Paresthesia of both hands Overweight (BMI 25.0-29.9) Allergic rhinitis Migraine Pure hypercholesterolemia Benign essential hypertension Surgical History Hx of colonoscopy History of removal of retained hardware (~01/2017) History of ankle surgery (~2002) History of lumbosacral spine surgery History of oophorectomy Family History Family History Father Diabetes Hypertension Mother Hypertension Other Mental health problem Social History Social History Housing: House Alcohol intake: current Alcohol intake frequency: holidays/special occasions only Alcohol type: wine Patient Tobacco Use Status: Never used Tobacco Smoked in Last 30 Days: No e-Cigarette/Vaping Use: Never Used Second Hand Smoke Exposure: No Use of substances other than those prescribed or required for medical reasons: No Advance Directives: No Advance Directives Information Provided: Yes service: No Current occupational status: retired Cognitive needs: No Hearing needs: No Vision needs: Yes (Glasses) Physical Exam 2 Vital Signs: Vital Signs: Last Vital Signs Temp 97.5 F 10/24/24 08:01 Pulse 63 10/24/24 08:01 Resp 16 10/24/24 08:01 BP 142/70 H 10/24/24 08:01 Pulse Ox 100 10/24/24 08:01 O2 Del Method Room Air 10/24/24 08:01 BMI result Body Mass Index 29.7 Const: General: cooperative, comfortable and no acute distress O rientation/consciousness: patient oriented x3 Limitations: no limitations HEENT: Head: Yes normal to inspection, Yes normocephalic and Yes atraumatic Ears: hearing grossly normal bilaterally and TM's normal bilaterally General nose exam: Normal external nose present Face and sinus: Yes normal facial exam Mouth: Normal oral and palatal mucosa present, oropharynx normal and moist mucous membranes Throat: Yes posterior oropharynx normal Eyes: General: appearance normal, both eyes and all related structures E yelids: Yes eyelids normal Conjunctivae: conjunctivae normal Sclerae: s clerae normal Pupils: Equal, round and reactive pupils present EOM: EOMs intact bilaterally Neck: Neck: Yes normal visual inspection, Yes full ROM and Yes no lymphadenopathy Lymphatic: no lymphadenopathy noted Chest: Chest palpation & inspection: normal inspection of the chest Resp: Effort & Inspection: normal respiratory effort and able to speak in complete sentences Auscultation: clear to auscultation bilaterally, no crackles, no rales, no rhonchi and no wheezes Cardio: Rate: regular rate Rhythm: regular rhythm Heart sounds: S1 normal heart sound present and S2 normal heart sound present GI: Inspection: Yes normal to inspection Skin: General skin exam: no rashes or lesions noted Trauma: no lacerations or abrasions Wounds: no wounds Neuro: General: patient oriented x3 and moves all extremities Cranial nerves: Yes CN's II-XII intact bilaterally and Yes Equal, round and reactive pupils present Cognition (Neuro): normal cognition Motor exam (neuro): 5/5 motor strength present throughout Coordination: opivig-ok-swmj test normal and oxyz-yx-hhbs test normal Romberg Test: Negative Extrem: General: Yes normal to inspection Right upper extremity: normal to inspection Left upper extremity: normal to inspection Right lower extremity: normal to inspection Left lower extremity: normal to inspection Course Reevaluation(s) Reevaluation #1: CTA revealing no acute process. There is a 1 cm low-density nodule in the left high low. Discussed findings with patient. Patient feeling better after receiving lidocaine patch, as well as Tylenol. Discussed overall workup. She has no leukocytosis, stable H&H, creatinine and BUN around baseline. Troponin 4. No need for repeat as patient has tenderness palpation along the left neck, unlikely ACS presentation. EKG sinus bradycardia at a ventricular rate of 54 beats per minute, WA interval 1 80, QT QTC 428/405. No ST elevation or depression. Will treat with course of steroids, Tylenol, and short course of oxycodone. Patient given strict return precautions. They understand and agree with plan. Patient stable for discharge. Time: 12:19 Medications Administered Discontinued Medications Generic Name Dose Route Start Last Admin Trade Name Ney PRN Reason Stop Dose Admin Acetaminophen 1,000 mg in 100 mls @ 400 mls/hr 10/24/24 09:44 10/24/24 11:14 Ofirmev IV 10/24/24 09:58 Infused ONCE ONE Infusion Iohexol 100 ml 10/24/24 11:02 10/24/24 11:03 Iohexol 350 Mg/Ml 100 Ml Infus..Btl IV 10/24/24 11:03 70 ml ONCE ONE Administration Lidocaine 1 patch 10/24/24 09:44 10/24/24 10:06 Lidocaine 4 % Patch Adh..Patch TRANSDERMA 10/24/24 09:45 1 patch ONCE ONE Administration Protocol Medical Decision Making Medical Decision Making [facility] Narrative: This is a 73-year-old female, with a history of hypertension and hyperlipidemia, who presents emergency department for evaluation of left-sided facial numbness and tingling which started at 8:00 p.m. last night. On arrival, vital signs reveal slight hypertensive at 142/70, all other vital signs within normal limits. She is speaking in full sentences under no acute distress. NIH score of 0. She has no focal neurologic deficits on examination. She has had left- sided neck pain, worsening with palpation, as well as with movement of her neck. She has no meningeal signs. Differential diagnoses include CVA-unlikely, muscle spasm, spasmodic torticollis, meningitis-unlikely, atypical ACS. Plan: CT, labs, EKG Differential Diagnosis Differential Diagnoses: The differential diagnosis associated with the presentation includes See above Lab Data [facility] Lab Attestation statement: I reviewed the patient's lab results. See course comment 10/24/24 08:20 10/24/24 08:20 Labs: Lab Results 10/24/24 Range/Units 08:20 WBC 7.0 (4.8-10.8) X10*3/uL RBC 4.23 (4.20-5.50) X10*6/uL Hgb 12.8 (12.0-16.0) g/dl Hct 36.8 L (37.0-47.0) % MCV 87.0 (80.0-98.0) fL MCH 30.3 (27.0-33.0) pg MCHC 34.8 (31.0-35.0) g/dl RDW 13.2 (11.0-16.0) % Plt Count 196 (160-400) X10*3/uL MPV 12.0 (9.4-12.3) fL Immature Gran % (Auto) 0.1 (0.0-0.4) % Neut % (Auto) 61.1 (45-73) % Lymph % (Auto) 26.4 (20-40) % Hardeman % (Auto) 7.2 (2-11) % Eos % (Auto) 4.3 H (0-4) % Baso % (Auto) 0.9 (0-2) % Lymph # (Auto) 1.8 (1.2-4.9) X10*3/uL Hardeman # (Auto) 0.5 (0.1-1.2) X10*3/uL Eos # (Auto) 0.3 (0.0-0.4) X10*3/uL Baso # (Auto) 0.1 (0.0-0.2) X10*3/uL Abs Immat Gran (auto) 0.01 (0.00-0.03) X10*3/uL Absolute Neuts (auto) 4.3 (2.0-8.3) x10*3/uL Absolute Nucleated RBC 0.000 (0.0-0.012) X10*3/uL Nucleated RBC % (auto) 0.0 (0.0-0.2) /100WBC ESR 38 H (0-20) MM/HR Sodium 139 (135-145) mmol/L Potassium 4.0 (3.3-5.1) mmol/L Chloride 106 (96-108) mmol/L Carbon Dioxide 27 (22-29) mmol/L Anion Gap 10 L (12-20) BUN 23 H (9-16) mg/dL Creatinine 1.05 (0.5-1.4) mg/dL Estim Creat Clear Calc 47.9 Estimated GFR 52 Random Glucose 87 (60-115) mg/dL Calcium 9.8 (8.4-10.2) mg/dL Total Bilirubin 0.4 (0.0-1.0) mg/dL AST 24 (5-31) U/L ALT 28 (0-31) U/L Alkaline Phosphatase 64 (39-117) U/L Troponin I High Sens 4.0 (<3.5-17.0) ng/L C-Reactive Protein 0.11 (< or = 0.50) mg/dL Total Protein 8.6 H (6.5-8.0) g/dL Albumin 3.9 (3.5-5.0) g/dL Independent Interpretation I performed an independent interpretation of an: EKG Interpretation: EKG sinus bradycardic at a ventricular rate of 54 beats per minute, WA interval 180, QT QTC 428/405. No ST elevation depression Radiology Impression Discussion of test interpretation with radiology: I have reviewed the radiologist's reading. Radiologist Impression: [place] [id number] CT Scan Report Signed Patient: Tisha Phan MR#: [id number] : 1950 Acct:[id number] Age/Sex: 73 / F ADM Date: 10/24/24 Loc: .ED Attending Dr: Ordering Physician: Ijeoma Lozano Date of Service: 10/24/24 Procedure(s): CT angio head neck Accession Number(s): [id number] cc: Bartolo Huffman MD; Ijeoma Lozano~ Report Number: [id number]: Total DLP = 1372.00 mGy-cm EXAMINATION: CTA NECK WITH CONTRAST (STROKE) CTA BRAIN WITH CONTRAST (STROKE) CLINICAL INFORMATION: Suspect acute stroke. Assess for major vessel occlusion. Please call report. COMPARISON: No priors. Correlated to CT brain dated August 15, 2009. TECHNIQUE: CTA of the head and neck was performed in the axial plane from the mediastinum to the skull vertex using 70 mL Omnipaque 350 intravenous contrast. Additional reformatted multiplanar images including maximum intensity projection MIP images are generated on the CT workstation. This CT examination was performed using dose optimization techniques as appropriate, variously including the following: *Automated exposure control *Adjustment of mA and/or kV according to patient size (this includes techniques or standardized protocols for targeted exams where dose is matched to indication/reason for exam; i.e. extremities or head) *Use of iterative reconstruction technique. DLP: 1372 mGy centimeter. FINDINGS: The degree of stenosis determined by criteria similar to NASCET. Brain: No acute intracranial hemorrhage, mass effect, midline shift, hydrocephalus or herniation. Escalera-white matter differentiation is normal. Posterior cranial fossa contents demonstrated no acute intracranial hemorrhage or mass effect. Sellar/suprasellar region demonstrated no gross masses. Craniocervical junction is intact and normal. No air-fluid levels in the paranasal sinuses. Tympanic cavities and mastoid cells are aerated. Chest CTA: The thoracic aortic arch is patent without focal stenosis or intimal flap or abnormal diameter. Neck CTA: Right CCA: Normal patency. No focal stenosis. No intimal flap. Right ICA: Normal patency. No focal stenosis. No intimal flap. Left CCA: Normal patency. No focal stenosis. No intimal flap. Left ICA: Normal patency. No focal stenosis. No intimal flap. V1/V2 segments of the vertebral arteries: Normal patency. No focal stenosis. No intimal flap. Codominant vertebral arteries. Both orientating from the subclavian arteries. Brain CTA: Anterior cerebral circulation: ICAs: Calcified plaques in the cavernous supraclinoid segments. Normal patency. No focal stenosis. No abrupt cut off. MCA's: Normal patency. No focal stenosis. No abrupt cut off. Bifurcation/trifurcation are patent without contour irregularity. ACAs: Normal patency. No focal stenosis. No abrupt cut off. Anterior communicating artery is not present. Posterior communicating arteries are not present. Ophthalmic arteries are patent. Posterior cerebral circulation: V3/V4 segments: Normal patency. No focal stenosis. No intimal flap. Right posterior inferior cerebellar artery is patent. Left posterior inferior cerebellar arteries patent. Basilar artery: Normal patency. No focal stenosis. No intimal flap. Superior cerebellar arteries are patent. medical management trainer: No focal stenosis. No abrupt cut off. Ancillary findings: The main cerebral venous sinuses are patent. There is a 1 cm low-density nodule left thyroid lobe. Subtle pulmonary mosaic pattern. Spondylosis C4-5 and C5-[address]/CT angio head neck IMPRESSION: No high degree stenosis or dissection. No gross plaques, carotid bulbs nor proximal ICAs. No main cerebral artery occlusion or embolus. 1 cm low density nodule, left thyroid lobe. This critical test result is communicated to: Ijeoma Lozano, physician executive staff assistant in the emergency department at 11:40 AM on October 24, 2024. Electronically signed by: Yury Doe MD 10/24/2024 11:49 AM EDT RP Dictated By: Yury Crawford MD Signed By: <Electronically signed by Yury Daugherty MD in OV> NIH Stroke Scale Internal: Initial- Upon Arrival Level of Consciousness: Alert Level of Consciousness Questions: Answers both questions correctly Level of Consciousness Commands: Performs both tasks correctly Best Gaze: Normal Visual: No visual loss Facial Palsy: Normal Motor Arm (Right): No drift Motor Arm (Left): No drift Motor Leg (Right): No drift Motor Leg (Left): No drift Limb Ataxia: Absent Sensory: Normal Best Language: No aphasia Dysarthia: Normal Extinction and Inattention: No abnormality Score: 0 Discharge Plan Discharge Clinical Impression: Cervical strain, Thyroid nodule Patient Disposition: Home, Self-Care Instructions: Cervical Strain (ED) Additional Instructions: You were seen in the emergency department due to left neck pain. Your labs are reassuring today. Your CT of your head was reassuring. You do have a left thyroid nodule. Please follow-up with your primary care physician regarding this finding. Your symptoms are likely attributed to a muscle spasm. Please take prescribed prednisone, this is an anti-inflammatory, this will help reduce inflammation. You may also take Tylenol as needed for pain and symptoms. Take oxycodone for severe pain only. Please be advised that this can cause drowsiness, do not drink alcohol or drive while taking this medication. Please also be advised that this can cause constipation, please only use sparingly. Please be advised that we can not refill this medication from the emergency department therefore please follow-up with your primary care physician. Gentle stretching, heat or ice can also help. If any new or worsening symptoms occur including but not limited to high fevers, chest pain, shortness for breath, worsening neck pain, please seek emergent care. Prescriptions: New prednisone 20 mg tablet 20 mg PO DAILY 5 Days Qty: 5 0RF lidocaine [Aspercreme (lidocaine)] 4 % adhesive patch,medicated 1 patch topical DAILY PRN (Reason: pain) Qty: 30 0RF oxycodone 5 mg tablet 5 mg PO Q8H PRN (Reason: severe pain (scale score 7-10)) Qty: 5 0RF Rx Instructions: Partial Fill upon patient request. No Action atenolol-chlorthalidone 50-25 mg tablet 0.5 tab PO DAILY Qty: 45 3RF unpdpaharv-oexralm-rdcbcjgk 50-325-40 mg capsule 2 cap PO Q4-6H PRN (Reason: headache) 30 Days Qty: 180 3RF Rx Instructions: do not exceed 3 doses per 24 hrs cholecalciferol (vitamin D3) 50 mcg (2,000 unit) capsule 100 mcg PO DAILY 90 Days Qty: 180 3RF Print Language: Amharic
[2024-10-24] MEDS: Lidocaine 4 % Patch ADH..PATCH 1 PATCH TRANSDERMA (10:06)
[2024-10-24] MEDS: Acetaminophen 1,000 MG/100 ML PIGGYBACK 400 MG IV (10:06)
[2024-10-24] MEDS: iohexoL 350 MG/ML 100 ML INFUS..BTL IV (11:03)
[2024-10-24 11:34] LABS: C Reactive Protein 0.11 mg/dL (< or = 0.50)
[2024-10-24 12:04] LABS: Erythrocyte Sedimentation Rate 38 MM/HR (0-20)
[2024-10-24] MEDS: oxyCODONE HCl Immed Release 5 MG TABLET PO (12:19)
[2024-10-24 12:33] VITALS: BP 138/79; PULSE 69; RESP 16; TEMP 36.7; O2SAT 100
== END 2024-10-24 12:34 | disposition home or self-care (01) ==
PROVIDERS: Physician Assistant Medical; Emergency Provider Student in an Organized Health Care Education/Training Program; PCP Internal Medicine
DX: S16.1XXA Strain of muscle, fascia and tendon at neck level, initial encounter (principal); R51.9 Headache, unspecified; R20.0 Anesthesia of skin; E04.1 Nontoxic single thyroid nodule; M25.512 Pain in left shoulder; X58.XXXA Exposure to other specified factors, initial encounter; Y93.9 Activity, unspecified; Y92.9 Unspecified place or not applicable; Y99.8 Other external cause status; Z79.899 Other long term (current) drug therapy
CPT/HCPCS: 36415; 70496; 70498; 80053; 84484; 85025; 85652; 86140; 93005; 96365; 99284; 99285; J0131; Q9967

== ENCOUNTER → 2024-10-24 08:06 | Outpatient (BNV) | payer MEDICARE, SELFPAY | PROVIDERS: Emergency Provider Student in an Organized Health Care Education/Training Program; PCP Internal Medicine; Visit Provider Internal Medicine | DX: R00.1 Bradycardia, unspecified (principal); M25.512 Pain in left shoulder | CPT/HCPCS: 93010 ==

== ENCOUNTER → 2024-10-24 09:33 | Outpatient (BNV) | payer MEDICARE, SELFPAY | PROVIDERS: Emergency Provider Student in an Organized Health Care Education/Training Program; PCP Internal Medicine; Visit Provider Radiology Diagnostic Radiology | DX: E04.1 Nontoxic single thyroid nodule (principal) | CPT/HCPCS: 70496; 70498 ==

== ENCOUNTER 2024-12-14 13:57 | Outpatient (REF) | payer MEDICARE, SELFPAY | END 2024-12-14 13:58 | disposition home or self-care (01) | LOC: HO.MAMMO 13:57 | PROVIDERS: PCP Internal Medicine; Visit Provider Internal Medicine | DX: Z12.31 Encounter for screening mammogram for malignant neoplasm of breast (principal) | CPT/HCPCS: 77063; 77067 ==

== ENCOUNTER → 2024-12-14 14:15 | Outpatient (BNV) | payer MEDICARE, SELFPAY | PROVIDERS: PCP Internal Medicine; Visit Provider Internal Medicine | DX: Z12.31 Encounter for screening mammogram for malignant neoplasm of breast (principal) | CPT/HCPCS: 77063; 77067 ==

== ENCOUNTER 2025-02-22 09:02 | Outpatient (REF) | payer MEDICARE, SELFPAY ==
[2025-02-22 10:07] LABS: Alanine Aminotransferase 26 U/L (0-31); Albumin Level 4.2 g/dL (3.5-5.0); Alkaline Phosphatase 51 U/L (39-117); Anion Gap 11 (12-20); Aspartate Amino Transferase 28 U/L (5-31); Blood Urea Nitrogen 23 mg/dL (9-16); Calcium 9.7 mg/dL (8.4-10.2); Carbon Dioxide 30 mmol/L (22-29); Chloride 103 mmol/L (96-108); Cholesterol 245 mg/dL (<200); Estimated Glomerular Filt Rate 47; HDL Cholesterol 56 mg/dL (>40); Potassium 3.8 mmol/L (3.3-5.1); Sodium 140 mmol/L (135-145); Total Protein 8.2 g/dL (6.5-8.0); Triglycerides 94 mg/dL (<150)
== END 2025-02-22 09:03 | disposition home or self-care (01) ==
LOC: HO.LAB 09:02
PROVIDERS: PCP Internal Medicine
DX: K21.9 Gastro-esophageal reflux disease without esophagitis (principal); I10 Essential (primary) hypertension; E78.00 Pure hypercholesterolemia, unspecified; E55.9 Vitamin D deficiency, unspecified
CPT/HCPCS: 36415; 80053; 80061; 82306

== ENCOUNTER 2025-02-27 14:06 | Outpatient (AMB) | payer MEDICARE, SELFPAY ==
--- NOTE | 2025-02-27 14:13 | MHC.PC.OV ---
Vital Signs 02/27/25 14:14 Height 5 ft 3 in Weight 167 lb BMI 29.6 BP 128/80 Blood Pressure Location Lt brachial Position Sitting Pulse 61 Pulse Source Pulse Oximeter Temp 98.6 F Temp Source Oral Pulse Oximetry (%) 98 Oxygen Delivery Method Room Air Intake Visit Reasons: HLD/vit D Second Floor Operator Required: No Accompanied by: Self / Same As Patient Allergies No Known Allergies (No Known Allergies*) Allergy (Verified 02/27/25 14:25) Medication List - Last Reconciled 02/27/25 by KATHLEEN Campbell atenolol-chlorthalidone 50-25 mg 0.5 tabs PO DAILY omzhjagatz-xjkzgqh-ivbgvuxq 50-325-40 mg 2 caps PO Q4-6H PRN 30 days cholecalciferol (vitamin D3) 100 mcg (2 x 50 mcg (2,000 unit)) PO DAILY 90 days lidocaine 4% (Aspercreme (lidocaine)) 1 patch topical DAILY PRN prednisone 20 mg PO DAILY 5 days Tobacco use date assessed: 02/27/25 Fall risk assessment: No Falls in past year Last assessed Fall Risk: 02/27/25 Dental Screening Dental Screen Date: 02/27/25 Did you have a dental visit in the last 12 months?: Yes Did you have a dental problem in the last 6 months where you did not have access to dental care?: No Was dental information given to patient?: Patient has dentist HPI HLD/vit D HPI Details The patient is a 74-year-old female presenting for evaluation of multiple health concerns including vitamin D deficiency, thyroid nodule, and abdominal pain. The patient reports a history of vitamin D deficiency despite taking supplements. She takes vxmr-lpd-iqbyqof vitamin D gummies, which may not be as effective as prescribed pills. Her vitamin D levels have fluctuated, previously increasing but now decreasing again. She spends time outdoors, which should aid in vitamin D synthesis, yet her levels remain low. The patient has a thyroid nodule on the left lobe, measuring 1 cm, discovered during a CT scan for cervical strain. She was advised to follow up on this finding. The nodule is small, and there is no immediate concern, but monitoring is recommended. She also reports a history of a pancreatic cyst, which was noted to be 3 mm in size. Follow-up imaging was recommended to monitor any changes. The patient is overdue for this follow-up imaging, which was initially suggested to occur two years after the initial finding. The patient experiences dull, constant abdominal pain, which does not change with food intake. It is suspected to be related to esophageal issues, possibly acid reflux. She has a history of fatty liver disease, but it is not believed to be severe enough to affect her current symptoms significantly. [facility] Medical History Neuropathy Pain in both hands Paresthesia of both hands Overweight (BMI 25.0-29.9) Allergic rhinitis Migraine Pure hypercholesterolemia Benign essential hypertension Surgical History Hx of colonoscopy History of removal of retained hardware (~01/2017) History of ankle surgery (~2002) History of lumbosacral spine surgery History of oophorectomy Family History Father Diabetes Hypertension Mother Hypertension Other Mental health problem Social History Housing: House Alcohol intake: current Alcohol intake frequency: holidays/special occasions only Alcohol type: wine Patient Tobacco Use Status: Never used Tobacco e-Cigarette/Vaping Use: Never Used Second Hand Smoke Exposure: No service: No Current occupational status: retired Cognitive needs: No Hearing needs: No Vision needs: Yes (Glasses) Questionnaire PHQ-9 Over the last 2 weeks, how often have you been bothered by any of the following problems? 1. Little interest or pleasure in doing things: not at all 2. Feeling down, depressed, or hopeless: not at all 3. Trouble falling or staying asleep, or sleeping too much: not at all 4. Feeling tired or having little energy: not at all 5. Poor appetite or overeating: not at all 6. Feeling bad about yourself - or that you are a failure or have let yourself or your family down: not at all 7. Trouble concentrating on things, such as reading the newspaper or watching television: not at all 8. Moving or speaking so slowly that other people could have noticed. Or the opposite - being so fidgety or restless that you have been moving around a lot more than usual: not at all 9. Thoughts that you would be better off or of hurting yourself in some way: not at all Total score: 0 Source: Developed by Drs. Donald Be, Pilar Laguerre, Jae Upton and colleagues, with an educational cosmo from [employer]. Thrive Questionnaire Date Thrive assessed: 02/27/25 I am a: Patient What is your living situation today?: I have a steady place to live Within the past 12 months, did the food you bought not last and you didn't have the money to get more?: Never true Within the past 12 months, did you worry whether your food would run out before you got money to buy more?: Never true Do you have trouble paying for medicines?: No Do you have trouble getting transportation to medical appointments?: No Do you have trouble paying your heating and electricity bill?: No Do you have trouble taking care of your child, family member or friend?: No Do you have trouble with day-to-day activities such as bathing, preparing meals, shopping, managing finances, etc.?: No Are you currently unemployed and looking for a job?: No Are you interested in more education?: I choose not to answer this question Please select the resources that you would like help with: None Currently or been in a relationship where the following occur: I choose not to answer THRIVE Score: 0 AUDIT C Alcohol Use Questionnaire (AUDIT-C) 1. How often do you have a drink containing alcohol?: Monthly or less Total Score: 1 CECILIA-7 AMB Questionnaire CECILIA-7 Date CECILIA - 7 assessed: 02/27/25 Feeling nervous, anxious, or on edge: 0 = Not at all Not being able to stop or control worryin = Not at all Worrying too much about different things: 0 = Not at all Trouble relaxin = Not at all Being so restless that it is hard to sit still: 0 = Not at all Becoming easily annoyed or irritable: 0 = Not at all Feeling afraid as if something awful might happen: 0 = Not at all Total CECILIA-7 score (0-4 normal; 5-9 mild; 10-14 moderate; 15-21 severe): 0 Source: Developed by Pilar Horn [employer], Jae Upton and colleagues, with an educational cosmo from [employer]. ACT Questionnaire How would you rate your asthma control during the past 4 weeks?: Completely controlled Score: 5 Review of Systems Const Denies body aches, Denies chills, Denies fever(s), Denies headache(s) and Denies poor appetite Eyes Reports no additional complaints ENT Denies dysphagia, Denies dizziness, Denies headache(s) and Denies odynophagia Card Denies chest pain, Denies syncope, Denies edema, Denies irregular heart rhythm, Denies lightheadedness and Denies dyspnea Resp Denies cough and Denies dyspnea GI Reports abdominal pain (Dull abdominal pain in the epigastric region that radiates to the sides), Denies constipation, Denies dysphagia, Denies diarrhea, Denies nausea, Denies odynophagia and Denies vomiting Reports no additional complaints Musc Reports arthralgias (Chronic left shoulder pain, pain in bilateral wrist), Reports numbness (bilateral hands) and Reports tingling (bilateral hands) Skin/Breast Reports system reviewed and no additional complaints, except as documented Neuro Denies Abnormal speech present, Denies dizziness, Denies syncope, Denies headache(s), Reports numbness (bilateral hands) and Reports tingling (bilateral hands) Psych Reports no additional complaints Physical exam (Primary Care) Vital Signs: Last Vital Signs Temp 98.6 F 02/27/25 14:14 Pulse 61 02/27/25 14:14 BP 128/80 02/27/25 14:14 Pulse Ox 98 02/27/25 14:14 Oxygen Delivery Method Room Air 02/27/25 14:14 BMI result Body Mass Index 29.6 Tobacco/Smoking Status: Tobacco use Status Tobacco use date assessed 02/27/25 02/27/25 14:15 Patient Tobacco Use Status Never used Tobacco 02/27/25 14:15 e-Cigarette/Vaping Use Never Used 02/27/25 14:15 PHQ-9: PHQ-9 Score PHQ-9: Total score 0 03/17/25 20:19 Thrive Assessment: Date of Thrive Assessment Date Thrive assessed 02/27/25 02/27/25 14:15 Currently or been in a relationship where the following occur: I choose not to answer Const General: healthy appearing, no acute distress, alert and awake Nutritional Appearance: well nourished Orientation/consciousness: oriented to person, oriented to place and oriented to time HENOH Ears: hearing grossly normal bilaterally General nose exam: Normal external nose present Eyes Conjunctivae: conjunctivae normal Sclerae: sclerae normal Pupils: Equal, round and reactive pupils present Neck Neck: Yes no lymphadenopathy and Yes no JVD Thyroid: Thyroid normal Carotids: no bruits Resp Effort & Inspection: normal respiratory effort and not tachypneic Auscultation: no crackles, no rales, no rhonchi and no wheezes Cardio Rate: regular rate Rhythm: regular rhythm Heart sounds: S1 normal heart sound present, S2 normal heart sound present, no murmurs and normal S1 and S2 GI Palpation (GI): Soft to palpation, nontender, no hepatomegaly and no splenomegaly Auscultation: normal bowel sounds General: Yes no CVA tenderness Back/Spine/Pelvis Back: no CVA tenderness Skin General skin exam: no rashes or lesions noted and dry skin Neuro General: oriented to person, oriented to place and oriented to time Cranial nerves: Yes Equal, round and reactive pupils present Speech: No Abnormal speech present Gait exam (Neuro): Normal gait present Motor exam (neuro): no tremor noted Extrem Right upper extremity: full ROM and wrist Details: normal ROM; no tenderness and no swelling Left upper extremity: full ROM, shoulder/upper arm Details: tenderness (mild) Location: of the A-C joint and wrist (no edema, +ROM, no tenderness) Right lower extremity: full ROM; no edema Left lower extremity: full ROM; no edema Psych Mental Status: mental status grossly normal Speech and movement: Normal speech and movement present Affect: normal affect Attitude: cooperative Thought process: Normal thought process present Results Reviewed Results Reviewed: Laboratory Tests 10/24/24 02/22/25 08:20 09:24 WBC 7.0 RBC 4.23 Hgb 12.8 Hct 36.8 L MCV 87.0 MCH 30.3 MCHC 34.8 RDW 13.2 Plt Count 196 MPV 12.0 Sodium 140 Potassium 3.8 Chloride 103 Carbon Dioxide 30 H Anion Gap 11 L BUN 23 H Creatinine 1.14 Estimated GFR 47 Fasting Glucose 88 Calcium 9.7 Total Bilirubin 0.7 AST 28 ALT 26 Alkaline Phosphatase 51 Total Protein 8.2 H Albumin 4.2 Triglycerides 94 Cholesterol 245 H LDL Cholesterol, Calc 171 H HDL Cholesterol 56 25-OH Vitamin D Total 4.5 L Coding Level of Care Code Est Pt Level 4 (12663) Diagnoses Benign essential hypertension I10 Pure hypercholesterolemia E78.00 Overweight (BMI 25.0-29.9) E66.3 Vitamin D deficiency E55.9 Allergic rhinitis, unspecified seasonality, unspecified trigger J30.9 Allergic rhinitis seasonality: unspecified Allergic rhinitis trigger: unspecified Gastroesophageal reflux disease, unspecified whether esophagitis present K21.9 Esophagitis presence: esophagitis presence not specified Constipation, unspecified constipation type K59.00 Constipation type: unspecified constipation type Abdominal discomfort R10.9 Abnormal computed tomography of abdomen and pelvis R93.5 Painful arc syndrome of left shoulder M75.102 Pain in both hands M79.641; M79.642 Migraine without aura and without status migrainosus, not intractable G43.009 Intractability: not intractable Migraine type: without aura Status migrainosus presence: without status migrainosus Paresthesia of both hands R20.2 Time Spent (min) 39 Assessment & Plan Assessment & Plan (1) Benign essential hypertension: Code(s): I10 - Essential (primary) hypertension Category: Medical Plan: Blood pressure 128/80, within goal Reinforced DASH diet Continue atenolol chlorthalidone 50-25 mg 0.5 tabs daily (2) Pure hypercholesterolemia: Code(s): E78.00 - Pure hypercholesterolemia, unspecified Category: Medical Plan: LDL 171 decrease 1 point from previous labs 4 months ago. Cautioned the patient that her dietary modifications has not been effective. Reports that she is still wants to continue with dietary modifications because she knows what happened. Verbalize that she has been eating a lot of ice cream and she just has to cut back. Reinforced dietary modifications and increasing activity as tolerated We will repeat lipid panel in 4 months (3) Overweight (BMI 25.0-29.9): Code(s): E66.3 - Overweight Category: Medical Plan: Encouraged to exercise for at least 30 minutes a day/5 days a week Healthy eating discussed. Encouraged to eat fruits/vegetables, protein-fish/baked chicken, and to avoid salty/fried foods, sweets, caffeine and carbohydrates. Encouraged to increase water intake 6-8 glasses a day (4) Vitamin D deficiency: Code(s): E55.9 - Vitamin D deficiency, unspecified Category: Medical Plan: Continue cholecalciferol vitamin-D3 100 mcg daily. Unclear if the patient is taking the full recommended dosage. Reports that she is taking vitamin D gummies and not what is ordered. However, she is willing to try the tablet formulation since her vitamin D level has been steadily decreasing. (5) Allergic rhinitis: Code(s): J30.9 - Allergic rhinitis, unspecified Category: Medical Qualifiers: Allergic rhinitis seasonality: unspecified Allergic rhinitis trigger: unspecified Qualified Code(s): J30.9 - Allergic rhinitis, unspecified Plan: Limit exposure to allergens Air purifiers and dust filters Air conditioner in house, especially where sleeping (6) GERD (gastroesophageal reflux disease): Code(s): K21.9 - Gastro-esophageal reflux disease without esophagitis Category: Medical Qualifiers: Esophagitis presence: esophagitis presence not specified Qualified Code(s): K21.9 - Gastro-esophageal reflux disease without esophagitis Plan: Reinforced dietary restrictions Do not eat meals or drink carbonated beverages within 3 hr of bedtime Decrease the amount of fried, fatty, and spicy foods to decrease gastric acid production Raise the head of the bed using 4 to 6-inch blocks, especially if nocturnal symptoms are present Lose weight if indicated; avoid tight-fitting clothing, especially around the waist Avoid foods that relax the Lower esophageal sphincter (chocolate, peppermint, high-fat foods etc.,) (7) Constipation: Code(s): K59.00 - Constipation, unspecified Category: Medical Qualifiers: Constipation type: unspecified constipation type Qualified Code(s): K59.00 - Constipation, unspecified Plan: Increase fluid intakes and dietary fiber (8) Abdominal discomfort: Code(s): R10.9 - Unspecified abdominal pain Category: Medical Plan: Mild in nature and diffused Patient is due for and follow up imaging of the abdomen (9) Abnormal computed tomography of abdomen and pelvis: Code(s): R93.5 - Abnormal findings on diagnostic imaging of other abdominal regions, including retroperitoneum Category: Medical Plan: Abdominal and pelvis CAT scan on 11/30/2020: There is a 3 mm cyst inferiorly in the pancreatic head. No solid pancreatic mass or peripancreatic inflammatory changes. Follow up recommendation for a pancreatic cyst this size in the patient's 65 to 79 years presentation is follow up imaging in 2 years, preferably with MRI. Follow up MRI this ordered (10) Painful arc syndrome of left shoulder: Code(s): M75.102 - Unspecified rotator cuff tear or rupture of left shoulder, not specified as traumatic Category: Medical Plan: Controlled. Continue lidocaine 4% patch p.r.n., and modified activity (11) Pain in both hands: Code(s): M79.641 - Pain in right hand; M79.642 - Pain in left hand Category: Medical Plan: Her pain is on and off and conservative treatments has been effective (12) Migraine: Code(s): G43.909 - Migraine, unspecified, not intractable, without status migrainosus Category: Medical Qualifiers: Intractability: not intractable Migraine type: without aura Status migrainosus presence: without status migrainosus Qualified Code(s): G43.009 - Migraine without aura, not intractable, without status migrainosus Plan: Stable Avoid triggers Continue bhofgaojcu-bsiqcxi-pfvbwgbm 50-325-40 mg 2 caps Q4-6H PRN (13) Paresthesia of both hands: Code(s): R20.2 - Paresthesia of skin Category: Medical Plan: EMG AND NCV OF BOTH UPPER EXTREMITIES done back in June of 2020. 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 Continue conservative management. Use wrist splints to minimize symptoms. She is not interested in any surgical intervention at this time. Orders: Orders Complete Blood Count Auto Diff 4 Months I10 - Essential (primary) hypertension, E78.00 - Pure hypercholesterolemia, unspecified, E66.3 - Overweight, E55.9 - Vitamin D deficiency, unspecified, K21.9 - Gastro-esophageal reflux disease without esophagitis, G43.009 - Migraine without aura, not intractable, without status migrainosus Lipid Panel 4 Months I10 - Essential (primary) hypertension, E78.00 - Pure hypercholesterolemia, unspecified, E66.3 - Overweight, E55.9 - Vitamin D deficiency, unspecified, K21.9 - Gastro-esophageal reflux disease without esophagitis, G43.009 - Migraine without aura, not intractable, without status migrainosus TSH reflex Free T4 4 Months I10 - Essential (primary) hypertension, E78.00 - Pure hypercholesterolemia, unspecified, E66.3 - Overweight, E55.9 - Vitamin D deficiency, unspecified, K21.9 - Gastro-esophageal reflux disease without esophagitis, G43.009 - Migraine without aura, not intractable, without status migrainosus Comprehensive [place]. Panel Fast 4 Months I10 - Essential (primary) hypertension, E78.00 - Pure hypercholesterolemia, unspecified, E66.3 - Overweight, E55.9 - Vitamin D deficiency, unspecified, K21.9 - Gastro-esophageal reflux disease without esophagitis, G43.009 - Migraine without aura, not intractable, without status migrainosus UA CC w/rflx Micro + Cult 4 Months I10 - Essential (primary) hypertension, E78.00 - Pure hypercholesterolemia, unspecified, E66.3 - Overweight, E55.9 - Vitamin D deficiency, unspecified, K21.9 - Gastro-esophageal reflux disease without esophagitis, G43.009 - Migraine without aura, not intractable, without status migrainosus Vitamin D 25-OH Total 4 Months I10 - Essential (primary) hypertension, E78.00 - Pure hypercholesterolemia, unspecified, E66.3 - Overweight, E55.9 - Vitamin D deficiency, unspecified, K21.9 - Gastro-esophageal reflux disease without esophagitis, G43.009 - Migraine without aura, not intractable, without status migrainosus Medications: Refilled cholecalciferol (vitamin D3) 100 mcg (2 x 50 mcg (2,000 unit)) PO DAILY 180 caps 3RF 90 days E55.9 - Vitamin D deficiency, unspecified
[2025-02-27 14:14] VITALS: BP 128/80; PULSE 61; TEMP 37; O2SAT 98; BMI 29.6
== END 2025-02-27 14:52 | disposition home or self-care (01) ==
LOC: HO.HMCH 14:07
PROVIDERS: PCP Internal Medicine
DX: I10 Essential (primary) hypertension (principal); E78.00 Pure hypercholesterolemia, unspecified; E66.3 Overweight; E55.9 Vitamin D deficiency, unspecified; J30.9 Allergic rhinitis, unspecified; K21.9 Gastro-esophageal reflux disease without esophagitis; K59.00 Constipation, unspecified; R10.9 Unspecified abdominal pain; R93.5 Abnormal findings on diagnostic imaging of other abdominal regions, including retroperitoneum; M75.102 Unspecified rotator cuff tear or rupture of left shoulder, not specified as traumatic; M79.641 Pain in right hand; M79.642 Pain in left hand; G43.009 Migraine without aura, not intractable, without status migrainosus; R20.2 Paresthesia of skin

== ENCOUNTER → 2025-02-27 14:06 | Outpatient (BNVA) | payer MEDICARE, SELFPAY | PROVIDERS: PCP Internal Medicine | DX: I10 Essential (primary) hypertension (principal); E78.00 Pure hypercholesterolemia, unspecified; E55.9 Vitamin D deficiency, unspecified; J30.9 Allergic rhinitis, unspecified; K21.9 Gastro-esophageal reflux disease without esophagitis; K59.00 Constipation, unspecified; R10.9 Unspecified abdominal pain; R93.5 Abnormal findings on diagnostic imaging of other abdominal regions, including retroperitoneum; M75.102 Unspecified rotator cuff tear or rupture of left shoulder, not specified as traumatic; M79.641 Pain in right hand; M79.642 Pain in left hand; G43.009 Migraine without aura, not intractable, without status migrainosus; R20.2 Paresthesia of skin; E66.3 Overweight; Z68.29 Body mass index [BMI] 29.0-29.9, adult; Z71.3 Dietary counseling and surveillance | CPT/HCPCS: 99212 ==

== ENCOUNTER 2025-03-31 15:19 | Outpatient (REF) | payer MEDICARE, SELFPAY ==
--- NOTE | ~2025-03-31 | MR_ITS ---
EXAMINATION: MR ABDOMEN WITHOUT THEN WITH IV CONTRAST HISTORY: R93.5 - Abnormal findings on diagnostic imaging of other abdominal region... COMPARISON: Comparison is made with a CT of the abdomen with contrast dated 11/30/2020. TECHNIQUE: Axial in and out of phase T1-weighted gradient echo, axial diffusion weighted, and axial and coronal HASTE T2 with fat saturation images were obtained through the abdomen. Subsequently, fat suppressed axial and coronal T1-weighted images were obtained after the intravenous administration of 7 mL Gadavist. FINDINGS: Liver: There is no loss of signal intensity in the liver on opposed phase imaging to suggest steatosis. There is a 1.3 cm cyst in segment VIII and a 1.5 cm cyst in segment V. There is no enhancing liver mass. The hepatic and portal veins are patent. There is no intrahepatic biliary dilatation. Gallbladder/biliary tree: No gallstones are identified. The common bile duct is normal in caliber. No intraluminal filling defects are identified to suggest choledocholithiasis. Spleen: The spleen is unremarkable. Pancreas: The pancreas is unremarkable. There is no enhancing pancreatic mass. The pancreatic duct is normal in caliber. The previously seen tiny hypodensity in the pancreatic head is not visualized. This may have represented volume averaging with the adjacent duodenum on the prior study. Adrenals: The adrenal glands are unremarkable. Kidneys: There are bilateral renal cysts including a 1.8 cm cyst at the upper pole of the right kidney and a 1.3 cm cyst at the lower pole of the right kidney. Multiple tiny cysts as seen on the left, the largest of which is at the upper pole measuring 0.9 cm. There is no hydronephrosis. Lymph nodes: There is no retroperitoneal lymphadenopathy in the upper abdomen. Fluid: There is no ascites in the upper abdomen. Visualized bowel: The visualized small and large bowel loops are unremarkable in appearance. Visualized bones: There is a vertebral hemangioma in the L2 vertebral body. MR/MR abdomen wo/w con IMPRESSION: 1. The previously seen tiny hypodensity in the pancreatic head is not visualized. This may have represented volume averaging with the adjacent duodenum on the CT. 2. Hepatic and bilateral renal cysts as described. Electronically signed by: Donald Martinez MD 04/02/2025 07:48 AM EDT RP
== END 2025-03-31 15:20 | disposition home or self-care (01) ==
LOC: HO.MRI 15:19
PROVIDERS: PCP Internal Medicine
DX: R93.5 Abnormal findings on diagnostic imaging of other abdominal regions, including retroperitoneum (principal)
CPT/HCPCS: 74183; A9585

== ENCOUNTER → 2025-03-31 15:19 | Outpatient (BNV) | payer MEDICARE, SELFPAY | PROVIDERS: PCP Internal Medicine; Visit Provider Radiology Diagnostic Radiology | DX: R93.5 Abnormal findings on diagnostic imaging of other abdominal regions, including retroperitoneum (principal); N28.1 Cyst of kidney, acquired; K76.89 Other specified diseases of liver | CPT/HCPCS: 74183 ==

== ENCOUNTER 2025-06-26 10:14 | Outpatient (REF) | payer MEDICARE, SELFPAY ==
[2025-06-26 10:29] LABS: MANUAL DIFF FLAG NO
[2025-06-26 10:51] LABS: Hematocrit 41.2 % (37.0-47.0); Hemoglobin 13.7 g/dl (12.0-16.0); Imm Gran Abs Auto 0.00 X10*3/uL (0.00-0.03); Imm Gran Pct Auto 0.0 % (0.0-0.4); Lymphocytes Absolute Auto 2.1 X10*3/uL (1.2-4.9); Mean Corpuscular HGB Conc 33.3 g/dl (31.0-35.0); Mean Corpuscular Hemoglobin 29.9 pg (27.0-33.0); Mean Corpuscular Volume 90.0 fL (80.0-98.0); NRBC Abs Auto 0.000 X10*3/uL (0.0-0.012); NRBC Pct Auto 0.0 /100WBC (0.0-0.2); Platelet Count 193 X10*3/uL (160-400); Red Blood Count 4.58 X10*6/uL (4.20-5.50); White Blood Count 4.7 X10*3/uL (4.8-10.8)
[2025-06-26 11:27] LABS: Alanine Aminotransferase 30 U/L (0-31); Albumin Level 4.3 g/dL (3.5-5.0); Alkaline Phosphatase 58 U/L (39-117); Anion Gap 11 (12-20); Aspartate Amino Transferase 26 U/L (5-31); Blood Urea Nitrogen 17 mg/dL (9-16); Calcium 10.1 mg/dL (8.4-10.2); Carbon Dioxide 30 mmol/L (22-29); Chloride 104 mmol/L (96-108); Cholesterol 250 mg/dL (<200); Estimated Glomerular Filt Rate 51; HDL Cholesterol 58 mg/dL (>40); Potassium 3.9 mmol/L (3.3-5.1); Sodium 141 mmol/L (135-145); Total Protein 8.6 g/dL (6.5-8.0); Triglycerides 132 mg/dL (<150)
[2025-06-26 11:32] LABS: Appearance Urine Clear; Glucose Urine UA Negative (Negative); PH 6.5 (5.0-9.0); Specific Gravity - Urine 1.020 (1.005-1.025)
== END 2025-06-26 10:15 | disposition home or self-care (01) ==
LOC: HO.LAB 10:14
PROVIDERS: PCP Internal Medicine
DX: I10 Essential (primary) hypertension (principal); K21.9 Gastro-esophageal reflux disease without esophagitis; G43.009 Migraine without aura, not intractable, without status migrainosus; E66.3 Overweight; E78.00 Pure hypercholesterolemia, unspecified; E55.9 Vitamin D deficiency, unspecified
CPT/HCPCS: 36415; 80053; 80061; 81003; 82306; 84443; 85025

== ENCOUNTER 2025-06-29 15:28 | Outpatient (AMB) | payer MEDICARE, SELFPAY ==
[2025-06-29 15:43] VITALS: BP 150/100; PULSE 76; TEMP 36.3; O2SAT 99; BMI 29.3
--- NOTE | 2025-06-29 15:43 | A.OFFPC_ITS ---
Vital Signs 06/29/25 15:43 06/29/25 16:02 Height 5 ft 3 in Weight 165 lb 4 oz BMI 29.3 BP 150/100 H 140/84 H Blood Pressure Location Lt brachial Lt brachial Position Sitting Sitting Pulse 76 Pulse Source Pulse Oximeter Temp 97.3 F Temp Source Temporal Artery Scan Pulse Oximetry (%) 99 Oxygen Delivery Method Room Air Intake Visit Reasons: 4 mo follow up htn/hld/vit D deficiency Allergies No Known Allergies (No Known Allergies*) Allergy (Verified 06/29/25 15:51) Tobacco use date assessed: 02/27/25 Dental Screening Dental Screen Date: 02/27/25 HPI 4 mo follow up htn/hld/vit D deficiency HPI Details The patient is a 74-year-old female presenting for a follow-up visit to review lab results and manage chronic conditions. Regarding lab results, the patient's eGFR has shown improvement, increasing from 40 to 52.11, and her chronic kidney disease status has improved, which is attributed to increased water intake. Her lipid panel shows an increase in total cholesterol and triglycerides, with the latter rising from 50 to 60, while her LDL cholesterol has decreased. The patient's blood pressure is usually well-controlled, but it was noted to be slightly elevated during today's visit. The patient reports a diet that excludes meat but includes sweets, ice cream, bread, white potatoes, and fried foods. Denies chest pain, sob or heart palpitation Reports recurrent abdominal intermittent pain [facility] Medical History Neuropathy Pain in both hands Paresthesia of both hands Overweight (BMI 25.0-29.9) Allergic rhinitis Migraine Pure hypercholesterolemia Benign essential hypertension Surgical History Hx of colonoscopy History of removal of retained hardware (~01/2017) History of ankle surgery (~2002) History of lumbosacral spine surgery History of oophorectomy Family History Father Diabetes Hypertension Mother Hypertension Other Mental health problem Social History Housing: House Alcohol intake: current Alcohol intake frequency: holidays/special occasions only Alcohol type: wine Patient Tobacco Use Status: Never used Tobacco e-Cigarette/Vaping Use: Never Used Second Hand Smoke Exposure: No service: No Current occupational status: retired Cognitive needs: No Hearing needs: No Vision needs: Yes (Glasses) Questionnaire PHQ-9 Over the last 2 weeks, how often have you been bothered by any of the following problems? 1. Little interest or pleasure in doing things: not at all 2. Feeling down, depressed, or hopeless: not at all 3. Trouble falling or staying asleep, or sleeping too much: not at all 4. Feeling tired or having little energy: not at all 5. Poor appetite or overeating: not at all 6. Feeling bad about yourself - or that you are a failure or have let yourself or your family down: not at all 7. Trouble concentrating on things, such as reading the newspaper or watching television: not at all 8. Moving or speaking so slowly that other people could have noticed. Or the opposite - being so fidgety or restless that you have been moving around a lot more than usual: not at all 9. Thoughts that you would be better off or of hurting yourself in some way: not at all Total score: 0 Source: Developed by Drs. Donald Be, Pilar Laguerre, Jae Upton and colleagues, with an educational cosmo from [employer]. Thrive Questionnaire Date Thrive assessed: 02/27/25 I am a: Patient What is your living situation today?: I have a steady place to live Within the past 12 months, did the food you bought not last and you didn't have the money to get more?: Never true Within the past 12 months, did you worry whether your food would run out before you got money to buy more?: Never true Do you have trouble paying for medicines?: No Do you have trouble getting transportation to medical appointments?: No Do you have trouble paying your heating and electricity bill?: No Do you have trouble taking care of your child, family member or friend?: No Do you have trouble with day-to-day activities such as bathing, preparing meals, shopping, managing finances, etc.?: No Are you currently unemployed and looking for a job?: No Are you interested in more education?: I choose not to answer this question Please select the resources that you would like help with: None Currently or been in a relationship where the following occur: I choose not to answer THRIVE Score: 0 AUDIT C Alcohol Use Questionnaire (AUDIT-C) 1. How often do you have a drink containing alcohol?: Monthly or less Total Score: 1 CECILIA-7 AMB Questionnaire CECILIA-7 Date CECILIA - 7 assessed: 02/27/25 Feeling nervous, anxious, or on edge: 0 = Not at all Not being able to stop or control worryin = Not at all Worrying too much about different things: 0 = Not at all Trouble relaxin = Not at all Being so restless that it is hard to sit still: 0 = Not at all Becoming easily annoyed or irritable: 0 = Not at all Feeling afraid as if something awful might happen: 0 = Not at all Total CECILIA-7 score (0-4 normal; 5-9 mild; 10-14 moderate; 15-21 severe): 0 Source: Developed by Drs. Donald eB, Pilar Laguerre, Jae Upton and colleagues, with an educational cosmo from [employer]. Review of Systems Const Denies body aches, Denies chills, Denies fever(s), Denies headache(s) and Denies poor appetite Eyes Reports no additional complaints ENT Denies dysphagia, Denies dizziness, Denies headache(s) and Denies odynophagia Card Denies chest pain, Denies syncope, Denies edema, Denies irregular heart rhythm, Denies lightheadedness and Denies dyspnea Resp Denies cough and Denies dyspnea GI Reports abdominal pain (Dull abdominal pain in the epigastric region that radiates to the sides), Denies constipation, Denies dysphagia, Denies diarrhea, Denies nausea, Denies odynophagia and Denies vomiting Reports no additional complaints Musc Reports arthralgias (Chronic left shoulder pain, pain in bilateral wrist), Reports numbness (bilateral hands) and Reports tingling (bilateral hands) Skin/Breast Reports system reviewed and no additional complaints, except as documented Neuro Denies Abnormal speech present, Denies dizziness, Denies syncope, Denies headache(s), Reports numbness (bilateral hands) and Reports tingling (bilateral hands) Psych Reports no additional complaints Physical exam (Primary Care) Vital Signs: Last Vital Signs Temp 97.3 F 06/29/25 15:43 Pulse 76 06/29/25 15:43 BP 140/84 H 06/29/25 16:02 Pulse Ox 99 06/29/25 15:43 Oxygen Delivery Method Room Air 06/29/25 15:43 BMI result Body Mass Index 29.3 Tobacco/Smoking Status: Tobacco use Status Tobacco use date assessed 02/27/25 06/29/25 15:48 Patient Tobacco Use Status Never used Tobacco 06/29/25 15:48 e-Cigarette/Vaping Use Never Used 06/29/25 15:48 PHQ-9: PHQ-9 Score PHQ-9: Total score 0 07/09/25 12:09 Thrive Assessment: Date of Thrive Assessment Date Thrive assessed 02/27/25 06/29/25 15:48 Currently or been in a relationship where the following occur: I choose not to answer Const General: healthy appearing, no acute distress, alert and awake Nutritional Appearance: well nourished Orientation/consciousness: oriented to person, oriented to place and oriented to time HENMT Ears: hearing grossly normal bilaterally General nose exam: Normal external nose present Eyes Conjunctivae: conjunctivae normal Sclerae: sclerae normal Pupils: Equal, round and reactive pupils present Neck Neck: Yes no lymphadenopathy and Yes no JVD Thyroid: Thyroid normal Carotids: no bruits Resp Effort & Inspection: normal respiratory effort and not tachypneic Auscultation: no crackles, no rales, no rhonchi and no wheezes Cardio Rate: regular rate Rhythm: regular rhythm Heart sounds: S1 normal heart sound present, S2 normal heart sound present, no murmurs and normal S1 and S2 GI Palpation (GI): Soft to palpation, nontender, no hepatomegaly and no splenomegaly Auscultation: normal bowel sounds General: Yes no CVA tenderness Back/Spine/Pelvis Back: no CVA tenderness Skin General skin exam: no rashes or lesions noted and dry skin Neuro General: oriented to person, oriented to place and oriented to time Cranial nerves: Yes Equal, round and reactive pupils present Speech: No Abnormal speech present Gait exam (Neuro): Normal gait present Motor exam (neuro): no tremor noted Extrem Right upper extremity: full ROM and wrist Details: normal ROM; no tenderness and no swelling Left upper extremity: full ROM, shoulder/upper arm Details: tenderness (mild) Location: of the A-C joint and wrist (no edema, +ROM, no tenderness) Right lower extremity: full ROM; no edema Left lower extremity: full ROM; no edema Psych Mental Status: mental status grossly normal Speech and movement: Normal speech and movement present Affect: normal affect Attitude: cooperative Thought process: Normal thought process present Results Reviewed Results Reviewed: Laboratory Tests 06/26/25 06/26/25 10:03 10:27 WBC 4.7 L RBC 4.58 Hgb 13.7 Hct 41.2 MCV 90.0 MCH 29.9 MCHC 33.3 RDW 13.3 Plt Count 193 MPV 12.2 Immature Gran % (Auto) 0.0 Neut % (Auto) 45.6 Sodium 141 Potassium 3.9 Chloride 104 Carbon Dioxide 30 H Anion Gap 11 L BUN 17 H Creatinine 1.06 Estimated GFR 51 Fasting Glucose 86 Calcium 10.1 Total Bilirubin 0.7 AST 26 ALT 30 Alkaline Phosphatase 58 Total Protein 8.6 H Albumin 4.3 Triglycerides 132 Cholesterol 250 H LDL Cholesterol, Calc 166 H HDL Cholesterol 58 25-OH Vitamin D Total 14.9 L TSH 1.42 Urine Color Yellow Urine Appearance Clear Urine pH 6.5 Ur Specific [place] 1.020 Urine Protein Negative Urine Glucose (UA) Negative Urine Ketones Negative Urine Blood Negative Urine Nitrite Negative Ur Leukocyte Esterase Negative Coding Level of Care Code Est Pt Level 4 (81054) Diagnoses Benign essential hypertension I10 Pure hypercholesterolemia E78.00 Overweight (BMI 25.0-29.9) E66.3 Vitamin D deficiency E55.9 Allergic rhinitis, unspecified seasonality, unspecified trigger J30.9 Allergic rhinitis seasonality: unspecified Allergic rhinitis trigger: unspecified Gastroesophageal reflux disease, unspecified whether esophagitis present K21.9 Esophagitis presence: esophagitis presence not specified Constipation, unspecified constipation type K59.00 Constipation type: unspecified constipation type Abdominal discomfort R10.9 Abnormal computed tomography of abdomen and pelvis R93.5 Painful arc syndrome of left shoulder M75.102 Pain in both hands M79.641; M79.642 Migraine without aura and without status migrainosus, not intractable G43.009 Intractability: not intractable Migraine type: without aura Status migrainosus presence: without status migrainosus Paresthesia of both hands R20.2 Time Spent (min) 38 Assessment & Plan Assessment & Plan (1) Benign essential hypertension: Code(s): I10 - Essential (primary) hypertension Category: Medical Plan: Blood pressure 140/84, systolic goal less than 130 mm Hg Reinforced DASH diet Continue atenolol chlorthalidone 50-25 mg 0.5 tabs daily (2) Pure hypercholesterolemia: Code(s): E78.00 - Pure hypercholesterolemia, unspecified Category: Medical Plan: LDL 166 decreased from 171-goal less than 100 mg/dL. Cautioned the patient that her dietary modifications has not been effective. Reports that she is still wants to continue with dietary modifications because she knows what happened. Verbalize that she has been eating a lot of ice cream and she just has to cut back. Reinforced dietary modifications and increasing activity as tolerated We will repeat lipid panel in 4 months (3) Overweight (BMI 25.0-29.9): Code(s): E66.3 - Overweight Category: Medical Plan: Encouraged to exercise for at least 30 minutes a day/5 days a week Healthy eating discussed. Encouraged to eat fruits/vegetables, protein- fish/baked chicken, and to avoid salty/fried foods, sweets, caffeine and carbohydrates. Encouraged to increase water intake 6-8 glasses a day (4) Vitamin D deficiency: Code(s): E55.9 - Vitamin D deficiency, unspecified Category: Medical Plan: Vitamin-D 14.9 increased from 4.5. Increase cholecalciferol 200 mcg daily We will continue to monitor (5) Allergic rhinitis: Code(s): J30.9 - Allergic rhinitis, unspecified Category: Medical Qualifiers: Allergic rhinitis seasonality: unspecified Allergic rhinitis trigger: unspecified Qualified Code(s): J30.9 - Allergic rhinitis, unspecified Plan: Limit exposure to allergens Air purifiers and dust filters Air conditioner in house, especially where sleeping (6) GERD (gastroesophageal reflux disease): Code(s): K21.9 - Gastro-esophageal reflux disease without esophagitis Category: Medical Qualifiers: Esophagitis presence: esophagitis presence not specified Qualified Code(s): K21.9 - Gastro-esophageal reflux disease without esophagitis Plan: Reinforced dietary restrictions Do not eat meals or drink carbonated beverages within 3 hr of bedtime Decrease the amount of fried, fatty, and spicy foods to decrease gastric acid production Raise the head of the bed using 4 to 6-inch blocks, especially if nocturnal symptoms are present Lose weight if indicated; avoid tight-fitting clothing, especially around the waist Avoid foods that relax the Lower esophageal sphincter (chocolate, peppermint, high-fat foods etc.,) (7) Constipation: Code(s): K59.00 - Constipation, unspecified Category: Medical Qualifiers: Constipation type: unspecified constipation type Qualified Code(s): K59.00 - Constipation, unspecified Plan: Increase fluid intakes and dietary fiber (8) Abdominal discomfort: Code(s): R10.9 - Unspecified abdominal pain Category: Medical Plan: Mild in nature and diffused Abdominal MRI on 03/31/2020 1. The previously seen tiny hypodensity in the pancreatic head is not visualized. This may have represented volume averaging with the adjacent duodenum on the CT 2. Hepatic and bilateral renal cysts noted (9) Abnormal computed tomography of abdomen and pelvis: Code(s): R93.5 - Abnormal findings on diagnostic imaging of other abdominal regions, inc luding retroperitoneum Category: Medical Plan: Abdominal and pelvis CAT scan on 11/30/2020: There is a 3 mm cyst inferiorly in the pancreatic head. No solid pancreatic mass or peripancreatic inflammatory changes. Follow up recommendation for a pancreatic cyst this size in the patient's 65 to 79 years presentation is follow up imaging in 2 years, preferably with MRI. Abdominal MRI on 03/31/2020 1. The previously seen tiny hypodensity in the pancreatic head is not visualized. This may have represented volume averaging with the adjacent duodenum on the CT 2. Hepatic and bilateral renal cysts noted (10) Painful arc syndrome of left shoulder: Code(s): M75.102 - Unspecified rotator cuff tear or rupture of left shoulder, not specified as traumatic Category: Medical Plan: Controlled. Continue lidocaine 4% patch p.r.n., and modified activity (11) Pain in both hands: Code(s): M79.641 - Pain in right hand; M79.642 - Pain in left hand Category: Medical Plan: Her pain is on and off and conservative treatments has been effective (12) Migraine: Code(s): G43.909 - Migraine, unspecified, not intractable, without status migrainosus Category: Medical Qualifiers: Intractability: not intractable Migraine type: without aura Status migrainosus presence: without status migrainosus Qualified Code(s): G43.009 - Migraine without aura, not intractable, without status migrainosus Plan: Stable Avoid triggers Continue aqqfltxiry-pypatmq-bopxdnrg 50-325-40 mg 2 caps Q4-6H PRN (13) Paresthesia of both hands: Code(s): R20.2 - Paresthesia of skin Category: Medical Plan: EMG AND NCV OF BOTH UPPER EXTREMITIES done back in June of 2020. 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 Continue conservative management. Use wrist splints to minimize symptoms. She is not interested in any surgical intervention at this time. Orders: Orders Complete Blood Count Auto Diff 3 Months I10 - Essential (primary) hypertension, E78.00 - Pure hypercholesterolemia, unspecified, E66.3 - Overweight, E55.9 - Vitamin D deficiency, unspecified, K21.9 - Gastro-esophageal reflux disease without esophagitis, G43.009 - Migraine without aura, not intractable, without status migrainosus, K76.0 - Fatty (change of) liver, not elsewhere classified Comprehensive [place]. Panel Fast 3 Months I10 - Essential (primary) hypertension, E78.00 - Pure hypercholesterolemia, unspecified, E66.3 - Overweight, E55.9 - Vitamin D deficiency, unspecified, K21.9 - Gastro-esophageal reflux disease without esophagitis, G43.009 - Migraine without aura, not intractable, without s tatus migrainosus, K76.0 - Fatty (change of) liver, not elsewhere classified Lipid Panel 3 Months I10 - Essential (primary) hypertension, E78.00 - Pure hypercholesterolemia, unspecified, E66.3 - Overweight, E55.9 - Vitamin D deficiency, unspecified, K21.9 - Gastro-esophageal reflux disease without esophagitis, G43.009 - Migraine without aura, not intractable, without status migrainosus, K76.0 - Fatty (change of) liver, not elsewhere classified UA CC w/rflx Micro + Cult 3 Months I10 - Essential (primary) hypertension, E78.00 - Pure hypercholesterolemia, unspecified, E66.3 - Overweight, E55.9 - Vitamin D deficiency, unspecified, K21.9 - Gastro-esophageal reflux disease without esophagitis, G43.009 - Migraine without aura, not intractable, without status migrainosus, K76.0 - Fatty (change of) liver, not elsewhere classified TSH reflex Free T4 3 Months I10 - Essential (primary) hypertension, E78.00 - Pure hypercholesterolemia, unspecified, E66.3 - Overweight, E55.9 - Vitamin D deficiency, unspecified, K21.9 - Gastro-esophageal reflux disease without esophagitis, G43.009 - Migraine without aura, not intractable, without status migrainosus, K76.0 - Fatty (change of) liver, not elsewhere classified Vitamin D 25-OH Total 3 Months I10 - Essential (primary) hypertension, E78.00 - Pure hypercholesterolemia, unspecified, E66.3 - Overweight, E55.9 - Vitamin D deficiency, unspecified, K21.9 - Gastro-esophageal reflux disease without esophagitis, G43.009 - Migraine without aura, not intractable, without status migrainosus, K76.0 - Fatty (change of) liver, not elsewhere classified Medications: Changed From rbjtuocvuz-speauim-oklelqgl 50-325-40 mg do not exceed 3 doses per 24 hrs 2 caps PO Q4-6H 30 days PRN 14 caps 0RF headache G43.009 - Migraine without aura, not intractable, without status migrainosus To hkiifmdujq-gzqeomn-fhjrolyx 50-325-40 mg do not exceed 3 doses per 24 hrs 2 caps PO Q4-6H PRN 14 caps 0RF headache 30 days G43.009 - Migraine without aura, not intractable, without status migrainosus
[2025-06-29 16:02] VITALS: BP 140/84
== END 2025-06-29 16:24 | disposition home or self-care (01) ==
LOC: HO.HMCH 15:29
PROVIDERS: PCP Internal Medicine
DX: I10 Essential (primary) hypertension (principal); E78.00 Pure hypercholesterolemia, unspecified; E66.3 Overweight; E55.9 Vitamin D deficiency, unspecified; J30.9 Allergic rhinitis, unspecified; K21.9 Gastro-esophageal reflux disease without esophagitis; K59.00 Constipation, unspecified; R10.9 Unspecified abdominal pain; R93.5 Abnormal findings on diagnostic imaging of other abdominal regions, including retroperitoneum; M75.102 Unspecified rotator cuff tear or rupture of left shoulder, not specified as traumatic; M79.641 Pain in right hand; M79.642 Pain in left hand; G43.009 Migraine without aura, not intractable, without status migrainosus; R20.2 Paresthesia of skin

== ENCOUNTER → 2025-06-29 15:28 | Outpatient (BNVA) | payer MEDICARE, SELFPAY | PROVIDERS: PCP Internal Medicine | DX: I10 Essential (primary) hypertension (principal); E78.00 Pure hypercholesterolemia, unspecified; E66.3 Overweight; Z68.29 Body mass index [BMI] 29.0-29.9, adult; J30.9 Allergic rhinitis, unspecified; K21.9 Gastro-esophageal reflux disease without esophagitis; K59.00 Constipation, unspecified; R10.9 Unspecified abdominal pain; R93.5 Abnormal findings on diagnostic imaging of other abdominal regions, including retroperitoneum; M75.102 Unspecified rotator cuff tear or rupture of left shoulder, not specified as traumatic; M79.641 Pain in right hand; M79.642 Pain in left hand; G43.009 Migraine without aura, not intractable, without status migrainosus; R20.2 Paresthesia of skin; Z71.3 Dietary counseling and surveillance | CPT/HCPCS: 99212 ==